=== PATIENT | male | born 1950 | race Caucasian/White ===

== ENCOUNTER → 2020-03-05 09:08 | Outpatient (BNVA) | payer MEDICARE, SELFPAY | PROVIDERS: PCP Internal Medicine; Referring Provider Internal Medicine; Visit Provider Internal Medicine Cardiovascular Disease | DX: I42.9 Cardiomyopathy, unspecified (principal); I10 Essential (primary) hypertension; I49.3 Ventricular premature depolarization; F10.21 Alcohol dependence, in remission; Z87.891 Personal history of nicotine dependence; Z79.82 Long term (current) use of aspirin; Z79.899 Other long term (current) drug therapy | CPT/HCPCS: 99212 ==

== ENCOUNTER → 2020-09-07 08:39 | Outpatient (BNVA) | payer MEDICARE, SELFPAY | PROVIDERS: PCP Internal Medicine; Visit Provider Internal Medicine Cardiovascular Disease | DX: I10 Essential (primary) hypertension (principal); I49.3 Ventricular premature depolarization | CPT/HCPCS: 99212 ==

== ENCOUNTER 2021-02-16 10:25 | Outpatient (REF) | payer MEDICARE, SELFPAY ==
[2021-02-16 10:27] LABS: MANUAL DIFF FLAG NO
[2021-02-16 10:58] LABS: Basophils Percent Auto 0.3 % (0-2); Eosinophils Absolute Auto 0.6 X10*3/uL (0.0-0.4); Eosinophils Percent Auto 6.4 % (0-4); Hematocrit 50.3 % (42-52); Imm Gran Abs Auto 0.02 X10*3/uL (0.00-0.03); Imm Gran Pct Auto 0.2 % (0.0-0.4); Lymphocytes Absolute Auto 2.1 X10*3/uL (1.2-4.9); Lymphocytes Percent Auto 23.5 % (20-40); Mean Corpuscular HGB Conc 33.8 g/dl (31.0-36.0); Mean Corpuscular Hemoglobin 32.3 pg (27.0-33.0); Mean Corpuscular Volume 95.4 fL (80-98); Mean Platelet Volume 10.8 fL (9.4-12.4); Monocytes Absolute Auto 0.7 X10*3/uL (0.1-1.2); Monocytes Percent Auto 8.2 % (2-11); Neutrophils Absolute Auto 5.4 X10*3/uL (2.0-8.3); Neutrophils Percent Auto 61.4 % (45-73); Platelet Count 242 X10*3/uL (160-400); Red Blood Count 5.27 X10*6/uL (4.60-5.80); Red Cell Distribution Width 13.2 % (11.0-16.0); White Blood Count 8.8 X10*3/uL (4.8-10.8)
[2021-02-16 11:13] LABS: Alanine Aminotransferase 17 U/L (0-40); Albumin Level 4.1 g/dL (3.5-5.0); Alkaline Phosphatase 35 U/L (39-117); Anion Gap 11 (12-20); Aspartate Amino Transferase 15 U/L (5-37); Bilirubin Total 1.2 mg/dL (0.0-1.0); Blood Urea Nitrogen 18 mg/dL (9-16); Calcium 9.2 mg/dL (8.4-10.2); Carbon Dioxide 28 mmol/L (22-29); Chloride 106 mmol/L (96-108); Cholesterol 199 mg/dL; Estimated Glomerular Filt Rate > 60; Glucose Fasting 99 mg/dL (60-99); HDL Cholesterol 55 mg/dL; LDL Cholesterol Calculated 130 mg/dl; Sodium 141 mmol/L (135-145); Total Protein 6.4 g/dL (6.5-8.0); Triglycerides 70 mg/dL
[2021-02-16 11:16] LABS: Estimated Average Glucose 105 mg/dL; Hemoglobin A1C 148.7881 umol/L; Hemoglobin A1c % 5.3 %
[2021-02-16 11:31] LABS: Appearance Urine CLEAR; Color Urine YELLOW; Glucose Urine UA NEG (NEG); Leukocyte Esterase Urine NEG (NEG); Nitrite Urine NEG (NEG); Urine Blood NEG (NEG); Urine Ketones NEG (NEG); Urine Protein NEG (NEG-TRACE)
[2021-02-16 11:36] LABS: Creatinine Urine 187.32 mg/dL; Microalbum/Creatinine Ratio Ur 10.1 ug/mg cr; PSA,Total (Free>4and<10) 2.05 ng/mL (0.00-4.00)
== END 2021-02-16 10:26 | disposition home or self-care (01) ==
LOC: HO.LNP 10:25
PROVIDERS: Visit Provider Internal Medicine
DX: Z00.00 Encounter for general adult medical examination without abnormal findings (principal); Z12.5 Encounter for screening for malignant neoplasm of prostate; R97.20 Elevated prostate specific antigen [PSA]; E78.00 Pure hypercholesterolemia, unspecified; E11.9 Type 2 diabetes mellitus without complications
CPT/HCPCS: 80053; 80061; 81003; 82043; 83036; 84153; 85025

== ENCOUNTER → 2021-03-10 08:40 | Outpatient (BNVA) | payer MEDICARE, SELFPAY | PROVIDERS: PCP Internal Medicine; Referring Provider Internal Medicine; Visit Provider Internal Medicine Cardiovascular Disease | DX: I49.3 Ventricular premature depolarization (principal); I10 Essential (primary) hypertension | CPT/HCPCS: 93005; 99212 ==

== ENCOUNTER 2022-02-18 10:38 | Outpatient (REF) | payer MEDICARE, SELFPAY ==
[2022-02-18 10:41] LABS: MANUAL DIFF FLAG NO
[2022-02-18 11:08] LABS: Basophils Absolute Auto 0.1 X10*3/uL (0.0-0.2); Basophils Percent Auto 0.6 % (0-2); Eosinophils Absolute Auto 0.4 X10*3/uL (0.0-0.4); Eosinophils Percent Auto 4.2 % (0-4); Hematocrit 50.7 % (42.0-52.0); Hemoglobin 17.1 g/dl (14.0-18.0); Imm Gran Abs Auto 0.02 X10*3/uL (0.00-0.03); Imm Gran Pct Auto 0.2 % (0.0-0.4); Lymphocytes Percent Auto 23.9 % (20-40); Mean Corpuscular HGB Conc 33.7 g/dl (31.0-36.0); Mean Corpuscular Hemoglobin 32.2 pg (27.0-33.0); Mean Corpuscular Volume 95.5 fL (80.0-98.0); Mean Platelet Volume 10.7 fL (9.4-12.4); Monocytes Absolute Auto 0.7 X10*3/uL (0.1-1.2); Monocytes Percent Auto 8.1 % (2-11); Neutrophils Absolute Auto 5.3 x10*3/uL (2.0-8.3); Platelet Count 248 X10*3/uL (160-400); Red Blood Count 5.31 X10*6/uL (4.60-5.80); Red Cell Distribution Width 12.9 % (11.0-16.0); White Blood Count 8.4 X10*3/uL (4.8-10.8)
[2022-02-18 11:12] LABS: Appearance Urine Clear; Color Urine Yellow; Glucose Urine UA Negative (Negative); Leukocyte Esterase Urine Negative (Negative); Nitrite Urine Negative (Negative); PH 5.5 (5.0-9.0); Specific Gravity - Urine 1.015 (1.005-1.025); Urine Blood Negative (Negative); Urine Ketones Negative (Negative); Urine Protein Negative (Neg-Trace)
[2022-02-18 11:17] LABS: Bacteria Urine None Seen (None Seen); Hyaline Casts Urine 0-2 /LPF (0-2); RBC Urine 0-2 /HPF (0-2); Squamous Epithelial Cell Urine 0-2 /HPF (0-2); WBC Urine 0-5 /HPF (0-5)
[2022-02-18 11:26] LABS: Estimated Average Glucose 105 mg/dL; Hemoglobin A1c % 5.3 %
[2022-02-18 11:26] LABS: Alanine Aminotransferase 16 U/L (0-40); Alkaline Phosphatase 37 U/L (39-117); Anion Gap 15 (12-20); Aspartate Amino Transferase 15 U/L (5-37); Bilirubin Total 1.1 mg/dL (0.0-1.0); Blood Urea Nitrogen 19 mg/dL (9-16); Calcium 9.2 mg/dL (8.4-10.2); Carbon Dioxide 27 mmol/L (22-29); Chloride 104 mmol/L (96-108); Cholesterol 223 mg/dL; Estimated Glomerular Filt Rate > 60; Glucose Fasting 99 mg/dL (60-99); HDL Cholesterol 59 mg/dL; LDL Cholesterol Calculated 145 mg/dl; Potassium 4.4 mmol/L (3.3-5.1); Sodium 142 mmol/L (135-145); Total Protein 6.3 g/dL (6.5-8.0); Triglycerides 97 mg/dL
[2022-02-18 11:47] LABS: PSA,Total (Free>4and<10) 1.98 ng/mL (0.00-4.00)
== END 2022-02-18 10:39 | disposition home or self-care (01) ==
LOC: HO.LNP 10:38
PROVIDERS: Visit Provider Internal Medicine
DX: Z00.00 Encounter for general adult medical examination without abnormal findings (principal); Z12.5 Encounter for screening for malignant neoplasm of prostate; E78.00 Pure hypercholesterolemia, unspecified; I10 Essential (primary) hypertension
CPT/HCPCS: 80053; 80061; 81001; 83036; 84153; 85025

== ENCOUNTER → 2022-05-11 13:07 | Outpatient (BNVA) | payer MEDICARE, SELFPAY | PROVIDERS: PCP Internal Medicine; Referring Provider Internal Medicine; Visit Provider Internal Medicine Cardiovascular Disease | DX: I10 Essential (primary) hypertension (principal); I42.9 Cardiomyopathy, unspecified | CPT/HCPCS: 93005; 99212 ==

== ENCOUNTER 2022-06-21 07:20 | Day surgery (SDC) | payer MEDICARE, SELFPAY ==
[2022-06-21 07:48] VITALS: BMI 29.4
[2022-06-21 07:50] VITALS: BP 161/71; PULSE 65; RESP 16; TEMP 36.9; O2SAT 95
--- NOTE | 2022-06-21 08:31 | HO.ANESPROP2 ---
HPI - Anesthesia Eval Consult details Narrative: obese 72 yr old male with multiple colon po,yps fir colonoscopy PMFSH Active Problems Active Problems: All Active Problems (Updated 06/20/22 @ 08:39 by Harmony Morrison RN) PVC (premature ventricular contraction) (Acute) Hypertension (Acute) Cardiomyopathy (Acute) Past Medical History Medical History (Updated 06/20/22 @ 08:39 by Harmony Morrison RN) Cardiomyopathy Hypertension PVC (premature ventricular contraction) Family History Family History Father No problems noted. Mother No problems noted. Family history of problems with anesthesia: No Surgical History Surgical History (Updated 06/21/22 @ 07:46 by Betty Tripp) H/O colonoscopy H/O tooth extraction History of Problems with Anesthesia: No Social History Social History (Updated 05/11/22 @ 13:24 by JUAN Barnhart) Alcohol intake: current Alcohol intake frequency: a few times a week Patient Tobacco Use Status: Former Tobacco user Quit Date: 1994 Tobacco use type: Cigarette Cigarettes Per Day: 5 Years Smoked: 10 Smoked in Last 30 Days: No Use of substances other than those prescribed or required for medical reasons: No Are you DNR?: No Advance Directives: No Advance Directives Information Provided: Yes Meds Allergies Allergy/AdvReac Type Severity Reaction Status Date / Time No Known Allergies Allergy Verified 06/21/22 07:46 Home Medications Medication Instructions Recorded Confirmed Last Taken Type aspirin 81 mg tablet,delayed 81 mg PO DAILY 03/05/20 06/21/22 06/14/22 History release (Adult Low Dose Aspirin) indomethacin 50 mg capsule 50 mg PO TID PRN Gout 03/05/20 06/21/22 Unknown History Exam Exam Date and Time: June 21, 2022 0831 Height,Weight and Vital Signs: Height 5 ft 10 in Weight 92.986 kg Last Vital Signs Temp 98.4 F 06/21/22 07:50 Pulse 65 06/21/22 07:50 Resp 16 06/21/22 07:50 BP 161/71 H 06/21/22 07:50 Pulse Ox 95 06/21/22 07:50 O2 Del Method 06/21/22 07:50 Airway Mallampati Class: II TM Dist: >3cm Neck ROM: Full Heart: rrr Lungs: cta Assessment and Plan Assessment Anesthesia Assessment: Anesthesia Plan Discussed and Chart Reviewed Final Anesthetic Review Family History of Problems with Anesthesia: No History of Problems with Anesthesia: No NPO: Yes ASA Class: III Final Preanesthetic Review: No Changes in Pt Med Stat, Meds/Allgs Chart Reviewed, Consent Obtained/Reviewed and Anes Risks/Benef Reviewed Patient Risk: Low Procedure Risk: Low Anesthetic Plan Anesthetic Plan: MAC: Disposition: Standard PACU
[2022-06-21] MEDS: Lactated Ringers 1,000 ML 50 ML IVCONT (08:43)
--- NOTE | 2022-06-21 08:44 | MHC.SHP ---
Pre-Procedural Eval Section A Date of Service: 06/21/22 The patient is an INPATIENT: No Changes since office visit: No Cold of Flu in the past 2 weeks, No New Medical Problems, No Changes in Medication and No Patient answered all questions The History & Physical has been completed within 30 days and I have reviewed it.: Yes Section B Chief Complaint: screening Allergies: Allergies Allergy/AdvReac Type Severity Reaction Status Date / Time No Known Allergies Allergy Verified 06/21/22 07:46 Plan I have reviewed the history and physical and performed a pertinent physical examination on my patient. No changes have occurred unless specified. Time Spent With Patient Time: Total time managing care of this patient today ____ minutes.
--- NOTE | 2022-06-21 09:35 | P.BOP_ITS ---
Brief Operative Note Date of Service: 06/21/22 Pre-op diagnosis: screening Procedure: colonoscopy Surgeon: Fransico Muse Anesthesia: MAC Was an Operations And Maintenance Technican used for this Procedure?: No Estimated blood loss (mL): 2 Pathology: other Condition: stable Disposition: PACU
[2022-06-21 09:42] VITALS: BP 126/64; PULSE 56; RESP 20; TEMP 36.8; O2SAT 96
--- NOTE | 2022-06-21 09:55 | OP_ITS ---
SURGEON: Fransico Muse MD INDICATIONS: Personal history of colon polyps. PREOPERATIVE DIAGNOSIS: POSTOPERATIVE DIAGNOSIS: PROCEDURE PERFORMED: Colonoscopy to the terminal ileum with snare polypectomy, biopsy, and cauterization of colon polyps. ESTIMATED BLOOD LOSS: COMPLICATIONS: ANESTHESIA: Monitored anesthesia care. ASSISTANTS: SPECIMENS: PROCEDURE DESCRIPTION: The procedure was performed on 06/21/2022. A history and physical were performed. The risks and benefits of the procedure were explained to the patient. Informed consent was obtained. The patient was placed in the left lateral decubitus position. A digital rectal exam was performed and was found to be normal. The Olympus pediatric video colonoscope was introduced into the rectum and advanced to the cecum without difficulty. The cecum was identified by transillumination, palpation, and identification of ileocecal valve. Examination was performed. The scope was removed. He tolerated the procedure well and was turned recovery area in stable condition. FINDINGS: The terminal ileum was examined and appeared normal. The visualized colonic mucosa was within normal limits without evidence of masses or ulcers. There were multiple colonic polyps, which were removed with a combination of snare and biopsy forceps. There were 2 polyps at 75 cm the largest measured 10 mm. These were snared. Polyps at 65 and 55 cm were also snared measuring less than 10 mm. The polyp at 45 cm was cauterized using the tip of the snare and a polyp at 40 cm measuring less than 5 mm was removed with biopsy forceps. There was moderate sigmoid diverticulosis. Retroflexed examination showed large internal hemorrhoids. There was some liquid stool remaining in the sigmoid and descending colon, which was washed and suctioned. IMPRESSION: Colon polyps. RECOMMENDATION: Follow up the biopsy results. MD JAIR Patten/AGNES / [id number]
[2022-06-21 09:57] VITALS: BP 130/60; PULSE 57; RESP 18; TEMP 37; O2SAT 96
== END 2022-06-21 10:24 | disposition home or self-care (01) ==
PROVIDERS: PCP Internal Medicine; Visit Provider Internal Medicine Gastroenterology
PROC: 0DJD8ZZ Inspection of Lower Intestinal Tract, Via Natural or Artificial Opening Endoscopic (ICD-10-PCS; CPT 45378; principal; 2022-06-21 08:40)
DX: Z12.11 Encounter for screening for malignant neoplasm of colon (principal); Z86.010 Personal history of colon polyps; Z80.0 Family history of malignant neoplasm of digestive organs; D12.4 Benign neoplasm of descending colon; D12.5 Benign neoplasm of sigmoid colon; K57.30 Diverticulosis of large intestine without perforation or abscess without bleeding; K64.8 Other hemorrhoids; I10 Essential (primary) hypertension; E78.00 Pure hypercholesterolemia, unspecified; Z79.82 Long term (current) use of aspirin; Z79.899 Other long term (current) drug therapy
CPT/HCPCS: 45385; 45380; 88305

== ENCOUNTER → 2022-09-01 07:52 | Outpatient (REF) | payer MEDICARE, SELFPAY ==
--- NOTE | 2022-09-01 07:55 | CA_ITS ---
Transthoracic Echocardiogram Patient (Last, First, Middle): Kei Sanches L Gender: Male Date of : 1950 Age: 72 Procedure Date: 09/01/2022 Procedure Type: Transthoracic Echocardiogram Location: OP Height: 177.8 cm Weight: 94.35 kg BSA: 2.12 m2 Heart Rate: bpm BP: 122 / 70 mmHg Adjunct Professor Of Law: TO Referring MD: Misael Williamson MD Receiver Dispatcher: Shiv Jama MD Symptoms: R01.1 MURMUR Study Quality: Fair ECG Rhythm: Sinus Conclusions: - 1. Low normal LV ejection fraction with grade 2 diastolic dysfunction with LVEF of 50-55% 2. Mildly dilated left atrium 3. Mild calcific aortic stenosis with mild aortic regurgitation 4. Mildly elevated right ventricular systolic pressure 5. Mildly dilated ascending aorta at 3.9 cm 6. No gross pericardial effusion Findings Left Ventricle Normal left ventricular cavity size. There is normal left ventricular wall thickness. The left ventricular systolic function is low normal. The visually estimated ejection fraction is between 50-55%. Spectral Doppler is indicative of a pseudonormal filling pattern. E/E prime ratio is >15, consistent with elevated filling pressures. Evidence suggests grade II (moderate) diastolic dysfunction. Peak GLS is -16.1%, which is mildly reduced. Right Ventricle Normal right ventricular cavity size and systolic function. Atria The left atrium is mildly dilated. Interatrial shunt cannot be excluded. The right atrium is likely dilated. Aortic Valve There is moderate calcification of the aortic valve. There is moderate thickening of the aortic valve. There is mild aortic valve stenosis. The peak aortic gradient is 33 mmHg.The mean gradient is 18 mmHg. The aortic valve area is 1.67 cm2. There is mild aortic valve regurgitation. Mitral Valve There is mild anterior and posterior mitral leaflet thickening. There is mild mitral annular calcification. There is trace mitral valve regurgitation. There is no mitral valve stenosis. Pulmonic Valve The pulmonic valve is likely normal. There is trace pulmonic valve regurgitation. Tricuspid Valve There is mild tricuspid valve regurgitation. Normal right atrial pressure. Mild pulmonary hypertension is present. Great Vessels The pulmonary artery was not well visualized. There is mild dilatation of the ascending aorta measuring 3.90 cm. Venous The inferior vena cava is normal in size and collapses greater than 50% with inspiration. Pericardium/Pleural There is no evidence of pericardial effusion. Measurements 2D Linear Measurements IVSd: 1.24 0.6-0.9/0.6-1.0 cm LVIDd: 5.16 3.9-5.3/4.2-5.9 cm LVIDd Index: 2.43 2.4-3.2/2.2-3.1 cm/m2 LVIDs: 3.61 2.0-3.6 cm LVPWd: 0.96 0.7-1.1 cm LA Diam: 4.70 2.7-3.8/3.0-4.0 cm LAIDs Index: 2.22 1.5-2.3 cm/m2 LV Mass: 271.25 67-162/88-224 g LV Mass Index: 127.95 43-95/49-115 g/m2 LVOT Diam: 2.10 3.0+(-)1.3 cm 2D Systolic Function EF 4C: 54.30 >55% EF 2C: 51.80 >55% EF BiP: 53.70 >55% Mitral Valve MV VTI: 0.41 MV Pk Sharad: 1.38 MV Mn Sharad: 0.69 MV Pk Grad: 8.00 MV Mn Grad: 2.00 MV Pk E: 0.98 MV PK A: 0.78 MV Decel Time: 243.00 E/A: 1.30 E'Lateral: 5.87 E'Medial: 6.64 E/E' Med: 14.80 E/E' Lat: 16.70 PHT: 71.00 MVA PHT: 3.10 MVA Continuity: 2.94 Decel Victoria: 3.84 Aortic Valve AoV Pk Sharad: 2.87 AoV Mn Sharad: 1.98 AoV VTI: 0.72 AoV Pk Grad: 33.00 Aov Mn Grad: 18.00 MARIO Cont.VTI: 1.67 AI Pk Sharad: 4.24 AI Victoria: 2.44 LVOT LVOT Pk Sharad: 1.34 LVOT Mn Sharad: 0.91 LVOT VTI: 0.35 LVOT Pk Grad: 7.00 LVOT Mn Grad: 4.00 LVOT Diam: 2.10 LVOT Area: 3.46 Diastolic Function MV Pk E: 0.98 MV Pk A: 0.78 E/A: 1.30 E'Medial: 6.64 E/E' Med: 14.80 E' Laterial: 5.87 E/E' Lat: 16.70 Right Ventricle TAPSE (mm): 18.90 TVS' Sharad: 10.90 Tricuspid Valve TR Pk Sharad: 3.06 TR Pk Grad: 37.00 RA Press: 3.00 RVSP: 40.00 Great Vessels Aorta Sinus of Valsalva: 3.31 2.0-3.[address] [place]: 2.73 1.7-3.4 cm Ao Asc: 3.90 2.1-3.4 cm Updated in Other Vendor System with Status of Final Shiv Jama MD electronically signed on 09/01/2022 12:17:01 PM with status of Final
== END ==
LOC: HO.CARD 07:52
PROVIDERS: Visit Provider Internal Medicine
DX: R01.1 Cardiac murmur, unspecified (principal)
CPT/HCPCS: 93306; 93356

== ENCOUNTER 2023-02-21 11:41 | Outpatient (REF) | payer MEDICARE, SELFPAY ==
[2023-02-21 11:45] LABS: MANUAL DIFF FLAG NO
[2023-02-21 12:27] LABS: Basophils Percent Auto 0.4 % (0-2); Eosinophils Absolute Auto 0.2 X10*3/uL (0.0-0.4); Eosinophils Percent Auto 3.1 % (0-4); Hematocrit 51.5 % (42.0-52.0); Hemoglobin 17.4 g/dl (14.0-18.0); Imm Gran Abs Auto 0.02 X10*3/uL (0.00-0.03); Imm Gran Pct Auto 0.3 % (0.0-0.4); Lymphocytes Absolute Auto 1.8 X10*3/uL (1.2-4.9); Lymphocytes Percent Auto 23.7 % (20-40); Mean Corpuscular HGB Conc 33.8 g/dl (31.0-36.0); Mean Corpuscular Hemoglobin 32.7 pg (27.0-33.0); Mean Corpuscular Volume 96.8 fL (80.0-98.0); Mean Platelet Volume 10.5 fL (9.4-12.4); Monocytes Absolute Auto 0.7 X10*3/uL (0.1-1.2); Monocytes Percent Auto 8.8 % (2-11); Neutrophils Absolute Auto 4.9 x10*3/uL (2.0-8.3); Neutrophils Percent Auto 63.7 % (45-73); Platelet Count 212 X10*3/uL (160-400); Red Blood Count 5.32 X10*6/uL (4.60-5.80); White Blood Count 7.6 X10*3/uL (4.8-10.8)
[2023-02-21 12:35] LABS: Appearance Urine Clear; Color Urine Yellow; Glucose Urine UA Negative (Negative); Leukocyte Esterase Urine Negative (Negative); Nitrite Urine Negative (Negative); PH 5.5 (5.0-9.0); Urine Blood Negative (Negative); Urine Ketones Negative (Negative); Urine Protein Negative (Neg-Trace)
[2023-02-21 12:41] LABS: Bacteria Urine None Seen (None Seen); Hyaline Casts Urine 0-2 /LPF (0-2); RBC Urine 0-2 /HPF (0-2); Squamous Epithelial Cell Urine 0-2 /HPF (0-2); WBC Urine 0-5 /HPF (0-5)
[2023-02-21 12:55] LABS: Alanine Aminotransferase 27 U/L (0-40); Albumin Level 4.1 g/dL (3.5-5.0); Alkaline Phosphatase 46 U/L (39-117); Anion Gap 15 (12-20); Aspartate Amino Transferase 23 U/L (5-37); Bilirubin Total 1.5 mg/dL (0.0-1.0); Blood Urea Nitrogen 19 mg/dL (9-16); Calcium 9.2 mg/dL (8.4-10.2); Carbon Dioxide 27 mmol/L (22-29); Chloride 103 mmol/L (96-108); Cholesterol 220 mg/dL (<200); Estimated Glomerular Filt Rate > 60; Glucose Fasting 105 mg/dL (60-99); HDL Cholesterol 62 mg/dL (>40); LDL Cholesterol Calculated 133 mg/dL (<100); Sodium 141 mmol/L (135-145); Total Protein 6.7 g/dL (6.5-8.0); Triglycerides 128 mg/dL (<150)
[2023-02-21 13:13] LABS: PSA,Total (Free>4and<10) 3.21 ng/mL (0.00-4.00)
== END 2023-02-21 11:42 | disposition home or self-care (01) ==
LOC: HO.LNP 11:41
PROVIDERS: Visit Provider Internal Medicine
DX: Z00.00 Encounter for general adult medical examination without abnormal findings (principal); E78.00 Pure hypercholesterolemia, unspecified; I10 Essential (primary) hypertension; Z12.5 Encounter for screening for malignant neoplasm of prostate
CPT/HCPCS: 80053; 80061; 81001; 84153; 85025

== ENCOUNTER 2023-05-15 08:34 | Outpatient (AMB) | payer MEDICARE, SELFPAY ==
[2023-05-15 09:08] VITALS: BP 140/50; PULSE 68; BMI 31.8
--- NOTE | 2023-05-15 09:08 | MHC.OFFVIS ---
Intake Vital Signs 05/15/23 09:08 Height 5 ft 10 in Weight 221 lb 12.56 oz BMI 31.8 BP 140/50 H Blood Pressure Location Lt brachial Position Sitting Pulse 68 Intake Visit Reasons: 1 year fu Intake Note: 1 yr f/up pt its feeling fine Motion Picture Printer Required: No Accompanied by: Self / Same As Patient Allergies No Known Allergies Allergy (Verified 06/21/22 07:46) Medication List - Last Reconciled 05/15/23 by Tristan Ochoa MD amlodipine 10 mg PO DAILY aspirin (Adult Low Dose Aspirin) 81 mg PO DAILY indomethacin 50 mg PO TID PRN metoprolol succinate ER 50 mg PO DAILY HPI HPI Comments History of Present Illness Details 73-year-old gentleman with no significant past medical history referred for abnormal EKG. He had a yearly physical with Dr. Williamson where EKG done showed inferior Q-waves with the premature ventricular complexes. Patient is quite active and played golf every day till the weather changed. He denied any chest discomfort, shortness of breath, sweating episodes, epigastric discomfort or upper back discomfort at any time. He has gout which is treated with as needed indomethacin. Other than that he does not take any medications. EKG showing sinus rhythm with premature ventricular complexes, inferior Q-waves with T-wave inversions. He was sent for echocardiography which showed a low-normal LVEF. Despite use of contrast, we could assess for RWMA. His Holter monitor showed [id number] PVCs in 24 hours. He was sent for stress test and was started on metoprolol. He exercised well on treadmill without any symptoms and his PVCs decreased in number at peak exercise. After being on metoprolol I repeated his Holter monitor. This is showing significantly decreased number of PVCs at this point. He continues to be asymptomatic. 05/15/23: He returns for follow-up. He is denying any symptoms including shortness of breath, chest discomfort palpitations. Blood pressure is mildly elevated. Previous blood pressure readings were normal. He is due to see his primary care physician in a week and will have repeat blood pressure check there. [facility] Medical History (Updated 06/20/22 @ 08:39 by Harmony Morrison RN) PVC (premature ventricular contraction) Hypertension Cardiomyopathy Surgical History H/O colonoscopy H/O tooth extraction Family History Father No problems noted. Mother No problems noted. Social History Alcohol intake: current Alcohol intake frequency: a few times a week Patient Tobacco Use Status: Former Tobacco user Quit Date: 1994 Tobacco use type: Cigarette Cigarettes Per Day: 5 Years Smoked: 10 Review of Systems Const Reports chills, Reports fatigue, Reports fever(s), Reports frequent falls, Reports weakness, Reports weight gain and Reports weight loss ENT Reports dizziness Card Reports chest pain, Reports leg edema, Reports lightheadedness, Reports palpitations, Reports dyspnea and Reports dyspnea on exertion Resp Reports cough, Reports dyspnea and Reports dyspnea on exertion GI Reports hematochezia Musc Reports abnormal gait, Reports muscle weakness, Reports numbness, Reports radiating pain into limb and Reports tingling Neuro Reports abnormal gait, Reports dizziness, Reports frequent falls, Reports numbness, Reports tingling and Reports weakness Endo Reports fatigue and Reports palpitations Physical Exam Vital Signs: Last Vital Signs Pulse 68 05/15/23 09:08 BP 140/50 H 05/15/23 09:08 BMI result Body Mass Index 31.8 GENERAL APPEARANCE: in no acute distress, pleasant. Overweight. NECK/THYROID: no carotid bruit, no jugular venous distention. SKIN: no suspicious lesions, warm and dry. HEART: Systolic murmur aortic with preserved 2nd heart sound, regular rate and rhythm. LUNGS: clear to auscultation bilaterally. ABDOMEN: soft, nontender. EXTREMITIES: Mild edema. PERIPHERAL PULSES: equal. NEUROLOGIC: No gross deficits, AAO X 3 Office Procedures EKG Details: Sinus rhythm, left axis deviation, inferior infarct, poor R-wave progression, QTC 442 milliseconds. [id number], Complete Assessment & Plan Assessment & Plan (1) Hypertension: Code(s): I10 - Essential (primary) hypertension (2) Cardiomyopathy: Comment: DUE TO ALCOHOL USE PER CARDIOLOGY H AND P Code(s): I42.9 - Cardiomyopathy, unspecified Plan [age] gentleman here for follow up. He is denying any symptoms on follow-up. Background of alcohol use and cardiomyopathy and PVCs. LV function improved after abstinence from alcohol. Denying symptoms on follow-up in his clinically stable. Blood pressure is mildly up and he will have it repeated when he goes for follow-up with his primary care physician. If blood pressure continues to be elevated then Toprol-XL can be changed to 50 twice a day. Follow-up with us in 1 year. Thank you for allowing me to participate in the care of your patient. Please feel free to contact me if you have any questions. Coding Level of Care Code Est Pt Level 4 (81497) Diagnoses Hypertension I10 Cardiomyopathy I42.9 CPT Codes EKG - CPT: 30771-[id number], Complete ([id number])
== END 2023-05-15 09:41 | disposition home or self-care (01) ==
PROVIDERS: PCP Internal Medicine; Visit Provider Internal Medicine Cardiovascular Disease
DX: I10 Essential (primary) hypertension (principal); I42.9 Cardiomyopathy, unspecified
CPT/HCPCS: 93010; 99214

== ENCOUNTER → 2023-05-15 08:34 | Outpatient (BNVA) | payer MEDICARE, SELFPAY | PROVIDERS: Visit Provider Internal Medicine Cardiovascular Disease | DX: I42.9 Cardiomyopathy, unspecified (principal); I10 Essential (primary) hypertension | CPT/HCPCS: 93005; 99212 ==

== ENCOUNTER 2023-06-15 10:57 | Outpatient (REF) | payer MEDICARE, SELFPAY ==
[2023-06-15 12:08] LABS: PSA,Total (Free>4and<10) 3.06 ng/mL (0.00-4.00)
== END 2023-06-15 10:58 | disposition home or self-care (01) ==
LOC: HO.LNP 10:57
PROVIDERS: Visit Provider Internal Medicine
DX: Z12.5 Encounter for screening for malignant neoplasm of prostate (principal); R97.20 Elevated prostate specific antigen [PSA]
CPT/HCPCS: 84153

== ENCOUNTER 2024-02-27 11:16 | Outpatient (REF) | payer MEDICARE, SELFPAY ==
[2024-02-27 11:25] LABS: MANUAL DIFF FLAG NO
[2024-02-27 11:31] LABS: Appearance Urine Clear; Color Urine Dark Yellow; Glucose Urine UA Negative (Negative); Leukocyte Esterase Urine Negative (Negative); Nitrite Urine Negative (Negative); Urine Blood Negative (Negative); Urine Ketones Negative (Negative); Urine Protein Negative (Neg-Trace)
[2024-02-27 11:34] LABS: Bacteria Urine None Seen (None Seen); Hyaline Casts Urine 0-2 /LPF (0-2); RBC Urine 0-2 /HPF (0-2); Squamous Epithelial Cell Urine 0-2 /HPF (0-2); WBC Urine 0-5 /HPF (0-5)
[2024-02-27 11:41] LABS: Basophils Percent Auto 0.4 % (0-2); Eosinophils Absolute Auto 0.3 X10*3/uL (0.0-0.4); Eosinophils Percent Auto 3.5 % (0-4); Hematocrit 49.5 % (42.0-52.0); Imm Gran Abs Auto 0.03 X10*3/uL (0.00-0.03); Imm Gran Pct Auto 0.4 % (0.0-0.4); Lymphocytes Absolute Auto 1.8 X10*3/uL (1.2-4.9); Lymphocytes Percent Auto 24.4 % (20-40); Mean Corpuscular HGB Conc 34.3 g/dl (31.0-36.0); Mean Corpuscular Hemoglobin 33.3 pg (27.0-33.0); Mean Corpuscular Volume 97.1 fL (80.0-98.0); Mean Platelet Volume 10.4 fL (9.4-12.4); Monocytes Absolute Auto 0.6 X10*3/uL (0.1-1.2); Monocytes Percent Auto 8.4 % (2-11); Neutrophils Absolute Auto 4.7 x10*3/uL (2.0-8.3); Neutrophils Percent Auto 62.9 % (45-73); Platelet Count 237 X10*3/uL (160-400); White Blood Count 7.5 X10*3/uL (4.8-10.8)
[2024-02-27 12:03] LABS: Alanine Aminotransferase 30 U/L (0-40); Albumin Level 4.1 g/dL (3.5-5.0); Alkaline Phosphatase 35 U/L (39-117); Anion Gap 11 (12-20); Aspartate Amino Transferase 26 U/L (5-37); Bilirubin Total 1.1 mg/dL (0.0-1.0); Blood Urea Nitrogen 15 mg/dL (9-16); Calcium 9.6 mg/dL (8.4-10.2); Carbon Dioxide 29 mmol/L (22-29); Chloride 106 mmol/L (96-108); Cholesterol 216 mg/dL (<200); Estimated Glomerular Filt Rate > 60; Glucose Fasting 110 mg/dL (60-99); HDL Cholesterol 54 mg/dL (>40); LDL Cholesterol Calculated 137 mg/dL (<100); Potassium 4.6 mmol/L (3.3-5.1); Sodium 141 mmol/L (135-145); Total Protein 6.5 g/dL (6.5-8.0); Triglycerides 125 mg/dL (<150)
[2024-02-27 12:08] LABS: PSA,Total (Free>4and<10) 2.79 ng/mL (0.00-4.00)
== END 2024-02-27 11:17 | disposition home or self-care (01) ==
LOC: HO.LNP 11:16
PROVIDERS: Visit Provider Internal Medicine
DX: Z00.00 Encounter for general adult medical examination without abnormal findings (principal); E78.00 Pure hypercholesterolemia, unspecified; I10 Essential (primary) hypertension; Z12.5 Encounter for screening for malignant neoplasm of prostate
CPT/HCPCS: 80053; 80061; 81001; 84153; 85025

== ENCOUNTER 2024-07-15 09:20 | Outpatient (AMB) | payer MEDICARE, SELFPAY ==
--- NOTE | 2024-07-15 09:43 | MHC.OFFVIS ---
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 He had a yearly physical with Dr. Williamson where EKG done showed inferior Q-waves with the premature ventricular complexes. Patient is quite active and played golf every day till the weather changed. He denied any chest discomfort, shortness of breath, sweating episodes, epigastric discomfort or upper back discomfort at any time. He has gout which is treated with as needed indomethacin. Other than that he does not take any medications. EKG showing sinus rhythm with premature ventricular complexes, inferior Q-waves with T-wave inversions. He was sent for echocardiography which showed a low-normal LVEF. Despite use of contrast, we could assess for RWMA. His Holter monitor showed 09988 PVCs in 24 hours. He was sent for stress test and was started on metoprolol. He exercised well on treadmill without any symptoms and his PVCs decreased in number at peak exercise. After being on metoprolol I repeated his Holter monitor. This is showing significantly decreased number of PVCs at this point. He continues to be asymptomatic. 05/15/23: He returns for follow-up. He is denying any symptoms including shortness of breath, chest discomfort palpitations. Blood pressure is mildly elevated. Previous blood pressure readings were normal. He is due to see his primary care physician in a week and will have repeat blood pressure check there. 07/15/2024: He is here for follow-up. Blood pressure is elevated 140/70. Recently at primary care physician's office in May blood pressure was 140/50. He has stopped drinking alcohol and drinks nonalcoholic beer. Not physically active. Denying any symptoms currently but as mentioned no physical exercise. EKGs showing inferior Q-waves as well as poor R-wave progression. He previously had stress testing few years ago which was normal. Nothing recent. [facility] Medical History (Updated 07/15/24 @ 10:11 by Tristan Ochoa MD) PVC (premature ventricular contraction) Hypertension Cardiomyopathy Surgical History H/O colonoscopy H/O tooth extraction Family History Father No problems noted. Mother No problems noted. Social History Alcohol intake: current Alcohol intake frequency: a few times a week Patient Tobacco Use Status: Former Tobacco user Tobacco use type: Cigarette Cigarettes Per Day: 5 Years Smoked: 10 Physical Exam Vital Signs: Last Vital Signs Pulse 62 07/15/24 09:45 BP 140/70 H 07/15/24 09:45 BMI result Body Mass Index 31.9 GENERAL APPEARANCE: in no acute distress, pleasant. Overweight. NECK/THYROID: no carotid bruit, no jugular venous distention. SKIN: no suspicious lesions, warm and dry. HEART: Systolic murmur aortic with preserved 2nd heart sound, regular rate and rhythm. LUNGS: clear to auscultation bilaterally. ABDOMEN: soft, nontender. EXTREMITIES: Mild edema. PERIPHERAL PULSES: equal. NEUROLOGIC: No gross deficits, AAO X 3 Office Procedures EKG Details: Sinus rhythm 62 beats per minute, leftward axis, inferior infarct, poor R-wave progression, QTC 432 milliseconds. 48383-[id number], Complete Assessment & Plan Assessment & Plan (1) Hypertension: Code(s): I10 - Essential (primary) hypertension Category: Medical (2) Cardiomyopathy: Comment: DUE TO ALCOHOL USE PER CARDIOLOGY H AND P Code(s): I42.9 - Cardiomyopathy, unspecified Category: Medical (3) Abnormal EKG: Code(s): R94.31 - Abnormal electrocardiogram [ECG] [EKG] Category: Medical Plan Pleasant 74 year gentleman who is here for follow-up. He has background history of cardiomyopathy, premature ventricular complexes in the setting of alcohol use. He has stopped drinking alcohol and drinks nonalcoholic beer. Blood pressure is elevated. Adding hydrochlorothiazide 25 mg daily. Continue metoprolol succinate and amlodipine. EKGs showing inferior Q-waves and poor R-wave progression. I have discussed with Kei, he is physically not active and we have decided to do a coronary CTA. We will check blood workup before CTA. He will see us back in 4 months. Thank you for allowing me to participate in the care of your patient. Please feel free to contact me if you have any questions. Orders: Orders CT Cardiac Coronary Angio Today I42.9 - Cardiomyopathy, unspecified, R94.31 - Abnormal electrocardiogram [ECG] [EKG] Basic Metabolic Panel Today I42.9 - Cardiomyopathy, unspecified Coding Level of Care Code Est Pt Level 4 (75921) Diagnoses Hypertension I10 Cardiomyopathy I42.9 Abnormal EKG R94.31 CPT Codes EKG - CPT: 73804-Zpybwhckkxlmlftsf, Complete ([id number])
[2024-07-15 09:45] VITALS: BP 140/70; PULSE 62; BMI 31.9
--- OUTSIDE RECORDS SUMMARY | 2024-07-15 09:57 | XMS_ITS ---
Author Organization Misael Williamson MD Address [address] [place], [place] [phone] Care Team Providers Care Assistant Professor Nurse Education Name Role Phone Misael Williamson Primary Care [...] kg/m2 03/05/2024 weight is down 2 pounds [facility] 08-31-23 Encounters Encounter Location Date Provider Diagnosis Misael Williamson MD [address] [place] [address] [address] [place], [place] [id number] 03/05/2024 Misael Williamson Pure hypercholestero lemia E78.00 [...] 6 Months, Reason: Provider Name:Misael Gibbs robinr, 09/02/2024 02:00:00 PM, [address], [address], [place], [phone], Provider Name:Misael Gibbs zarina, 03/03/2025 07:15:00 AM, [address], [address], [place], [phone], Provider Name:Misael Gibbs robinr, 03/10/2025 01:00:00 PM, [address], [address], [place], [phone], Progress Notes * ALEXANDRAKei MISHRADOB:1949 (74 yo M)Acc No.[id number]:03/05/2024 Progress Notes Patient:?Kei Sanches Provider:?Misael Williamson MD :1950???Age:74 Y???Sex:Male Scar e:03/05/2024 Address:[address] [place] [address] , [place] , [id number] Subjective: * Chief Complaints: * ???Annual visitC/o right elb ow pain x 2 weeks * HPI: ???Depression Screening:?PHQ-9?Little interest or pleasure in doing things?Not at all,?Feeling down, depressed, or hopeless?Not at all,?Trouble falling or staying asleep, or sleeping too much?Not at all,?Feeling tired or having little energy?Not at all,?Poor appetite or overeating?Not at all,?Feeling bad about yourself or that you are a failure, or have let yourself or your family down?Not at all,?Trouble concentrating on things, such as reading the newspaper or watching television?Not at all,?Moving or speaking so slowly that other people could have noticed; or the opposite, being so fidgety or restless that you have been moving around a lot more than usual?Not at all,?Thoughts that you would be better off or of hurting yourself in some way?Not at all,?Total Score?0.?Interpretation and Intervention?Depression Screening Findings?Negative,?Follow-Up for Depression?: review of PHQ-9 found negative result, no follow-up needed.?Communication Needs:?Communication Needs?Does the patient have a hearing impairment?No,?Does the patient have a vision impairment??Yes,?If yes, what is the vision impairment??Glasses,?Does the patient have a cognition impairment??No.?Fall Risk:?History?Have you had any falls with injury in the past year??No,?Have you had two or more falls in the past year??No.?SDOH Questions:?SDOH Questions?In the past year have you been worried about losing housing??No,?In the past year have you or any family members you live with been unable to get any of the following when it was really needed? Check all that apply:?None.?Symptom(s):? patient is a 74 yo male here for yearly evaluation with review of recent labs and follow up of chronic issues. Also complaining of right elbow pain for 2 weeks. * ROS:?General/Constitutional:?Patient denies?fatigue , headache.?Change in appetite?denies.?Chills?denies.?Fever?denies.?Ophthalmologic:?Blurred vision?denies.?Discharge?denies.?Pain?denies.?ENT:?Patient denies?decreased sense of smell , any loss of taste , sore throat.?Decreased hearing?denies.?Sore throat?denies.?Swollen glands?denies.?Endocrine:?Cold intolerance?denies.?Excessive thirst?denies.?Heat intolerance?denies.?Weight loss?denies.?Respiratory:?Cough?denies.?Shortness of breath at rest?denies.?Shortness of breath with exertion?denies.?Wheezing?denies.?Cardiovascular:?Chest pain at rest?denies.?Chest pain with exertion?denies.?Irregular heartbeat?denies.?Shortness of breath?denies.?Gastrointestinal:?Abdominal pain?denies.?Change in bowel habits?denies.?Diarrhea?denies.?Nausea?denies.?Rectal bleeding?denies.?Vomiting?denies .?Genitourinary:?Blood in urine?denies.?Difficulty urinating?denies.?Frequent urination?denies.?Musculoskeletal:?Patient denies?muscle aches.?Painful joints?denies.?Weakness?denies.?Peripheral Vascular:?Patient denies?red and blue toes.?Skin:?Dry skin?denies.?Itching?denies.?Denies?Mole(s),? changes in moles, new moles or any lesions of concern.?Denies?Photosensitivity.?Rash?denies.?Neurologic:?Dizziness?denies.?Fainting?denies.?Headache?denies.? * Medical History:? * Surgical History:? * Hospitalization/Major Diagno stic Procedure:? * Family History:?Father: dece ased 102 yrs, diagnosed with Cancer.?Mother: 94 yrs, diagnosed with Cancer.?2 brother(s) , 1 sister(s) . 2 daughter(s) . .? Mother- old age, Denies mental health/substance abuse family history, No pertinent family medical history, No pertinent family medical history, Denies mental health/substance abuse family history. * Social History:?Tobacco Use:?Tobacco Use/Smoking?Patient is a?former smoker,?How long has it been since you last smoked??> 10 years,?Additional Findings: Tobacco Non-User?Former smoker, currently using no form of tobacco.?Drugs/Alcohol:?Alcohol Screen?Did you have a drink containing alcohol in the past year??Yes,?How often did you have a drink containing alcohol in the past year??Monthly or less (1 point),?How many drinks did you have on a typical day when you were drinking in the past year??1 or 2 drinks (0 point),?How often did you have 6 or more drinks on one occasion in the past year??Never (0 point),?Points?1,?Interpretation?Negative.?Miscellaneous:?Caffeine: yes, , 1-2 cups per day. Children: yes. no Community involvements. Exercise: yes, walk, 45 minutes QD and golf. Housing: owning. Living with: spouse. Marital status: . Occupation: works part-time, and retired. Pets: none. no Travel outside of the [place]. * Medications:?TakingAspir-Low 81 MG Tablet Delayed Release 1 tablet [...] MG Tablet 1 tablet Orally Once a dayNot-Taking/PRNBenzonatate 200 MG Capsule 1 capsule Orally Three [...] reviewed and reconciled with the patient * Allergies:?N.K.D.A.yes[Aller gies Verified] Objective: * Vitals:?Ht: 69, Wt:222, BMI: 32.78, BP:142/74, Repeat BP:130/80 weight is down 2 pounds since 08-31-23. * ???Past Orders: ???Lab:Comprehensive [place]. P shon Fast (Order Date - 02/27/2024) (Collection Date - 02/27/2024) ? Value Reference Range ?Sodium 141 135-145 - mmo l/L ?Bilirubin Total 1.1 H 0.0- 1.0 - mg/dL ?Aspartate Amino Transferase 26 5-37 - U/L ?Alanine Aminotransferase 30 0-40 - U/L ?Total Protein 6.5 6.5-8. 0 - g/dL ?Albumin Level 4.1 3.5-5. 0 - g/dL ?Alkaline Phosphatase 35 L 39-117 - U/L ?Potassium 4.6 3.3-5.1 - mmol/L ?Chloride 106 96-108 - mm ol/L ?Carbon Dioxide 29 22-29 - mmol/L ?Anion Gap 11 L 12-20 - ?Blood Urea Nitrogen 15 9-16 - mg/dL ?Creatinine 0.86 0.5-1.4 - mg/dL ?Estimated Glomerular Filt Rate > 60 - ?Glucose Fasting 110 H 60-9 9 - mg/dL ?Calcium 9.6 8.4-10.2 - m g/dL ???Lab:Complete Blood Count Auto Diff (Order Date - 02/27/2024) (Collection Date - 02/27/2024) ? Value Reference Range ?White Blood Count 7.5 4. 8-10.8 - X10*3/uL ?Red Blood Count 5.10 4.60 -5.80 - X10*6/uL ?Hemoglobin 17.0 14.0-18.0 - g/dl ?Hematocrit 49.5 42.0-52.0 - % ?Mean Corpuscular Volume 97.1 80.0-98.0 - fL ?Mean Corpuscular Hemoglobin 33.3 H 27.0-33.0 - pg ?Mean Corpuscular HGB Conc 34.3 31.0-36.0 - g/dl ?Red Cell Distribution Width 13.0 11.0-16.0 - % ?Platelet Count 237 160-4 00 - X10*3/uL ?Mean Platelet Volume 10.4 9.4-12.4 - fL ?Neutrophils Percent Auto 62.9 45-73 - % ?Imm Gran Pct Auto 0.4 0. 0-0.4 - % ?Lymphocytes Percent Auto 24.4 20-40 - % ?Monocytes Percent Auto 8.4 2-11 - % ?Eosinophils Percent Auto 3.5 0-4 - % ?Basophils Percent Auto 0.4 0-2 - % ?NRBC Pct Auto 0.0 0.0-0. 2 - /100WBC ?Neutrophils Absolute Auto 4.7 2.0-8.3 - x10*3/uL ?Imm Gran Abs Auto 0.03 0. 00-0.03 - X10*3/uL ?Lymphocytes Absolute Auto 1.8 1.2-4.9 - X10*3/uL ?Monocytes Absolute Auto 0.6 0.1-1.2 - X10*3/uL ?Eosinophils Absolute Auto 0.3 0.0-0.4 - X10*3/uL ?Basophils Absolute Auto 0.0 0.0-0.2 - X10*3/uL ?NRBC Abs Auto 0.000 0.0-0. 012 - X10*3/uL ???Lab:UA ClnCatch+Micro w/r flx Cult (Order Date - 02/27/2024) (Collection Date - 02/27/2024) ? Value Reference Range ?Color Urine Dark Yellow - ?Appearance Urine Clear - ?PH 6.0 5.0-9.0 - ?Glucose Urine UA Negative Neg ative - mg/dL ?Urine Blood Negative Negative - ?Specific [place] - Urine 1.020 1.005-1.025 - ?Urine Protein Negative Neg-Tr wali - mg/dL ?Urine Ketones Negative Negati ve - mg/dL ?Nitrite Urine Negative Negati ve - ?Leukocyte Esterase Urine Negative Negative - ?RBC Urine 0-2 0-2 - /HPF ?WBC Urine 0-5 0-5 - /HPF ?Squamous Epithelial Cell Urine 0-2 0-2 - /HPF ?Bacteria Urine None Seen None Seen - ?Hyaline Casts Urine 0-2 0-2 - /LPF ???Lab:PSA,Total (Free>4and< 10) (Order Date - 02/27/2024) (Collection Date - 02/27/2024) ? Value Reference Range ?PSA,Total (Free>4and<10) 2.79 0.00-4.00 - ng/mL ???Lab:Lipid Panel (Order Da te - 02/27/2024) (Collection Date - 02/27/2024) ? Value Reference Range ?Triglycerides 125 <150 - mg/dL ?Cholesterol 216 H <200 - m g/dL ?LDL Cholesterol Calculated 137 H <100 - mg/dL ?HDL Cholesterol 54 >40 - mg/dL * Examination: ???General Examination: ?GENERAL APPEARANCE:?well developed, well nourished, in no acute distress.?HEAD:?normocephalic, atraumatic.?EYES:?pupils equal, round, reactive to light and accommodation, sclera non-icteric.?EARS:?normal.?ORAL CAVITY:?mucosa moist.?THROAT:?clear.?NECK/THYROID:?neck supple, full range of motion, no cervical lymphadenopathy, no bruits.?SKIN:?warm and dry, no suspicious lesions.?HEART:?regular rate and rhythm, S1, S2 normal, no murmurs.?LUNGS:?clear to auscultation bilaterally.?ABDOMEN:?soft, nontender, nondistended, bowel sounds present, normal, no organomegaly , no masses palpable.?RECTAL EXAM:?normal tone, no external hemorrhoids, no masses palpable, prostate normal, stool guaiac negative.?MALE GENITOURINARY:?circumcised, no penile lesions or discharge, testes descended bilaterally, no testicular mass.?EXTREMITIES:?no clubbing, cyanosis, or edema with tender lateral epicondyle.?NEUROLOGIC:?nonfocal, motor strength normal upper and lower extremities, sensory exam intact.? Assessment: * Assessment: 1.?Annual physical exam - Z0 0.00 (Primary)?2.?Pure hypercholesterolemia - E78.00?3.?Essential (primary) hypertension - I10?4.?Colon cancer screening - Z12.11?5.?Depression screening - Z13.31? Plan: * Treatment: 2.?Pure hypercholesterolemia ? Notes: well controlled.?? 3.?Essential (primary) hyper tension? Continue Metoprolol Succinate ER Tablet Extended Release 24 Hour, 50 MG, TAKE ONE TABLET BY MOUTH EVERY DAY, Oral;?Continue amLODIPine Besylate Tablet, 10 MG, 1 tablet, Orally, Once a day.?? Notes: doing well on meds, will continue current regiment?? 4.?Colon cancer screening?LAB: Occult Blood, Stool, Guaiac?Negative ? Value Reference Range ?Occult Blood, Stool, Guaiac Neg Notes: guaiac negative??5.?Depression screening? Notes: negative screen?? * Procedure Codes:?80116 TEST FOR BLOOD, FECES * Preventive Medicine:? ??Counseling:?Care goal follow-up plan:?Counseling for abnormal BMI provided?Yes,?Above Normal BMI Follow-up?Giving encouragement to exercise.? * Follow Up:?6 Months * * Sign off status: Completed true * Provider:?Misael Williamson MD Date:?1 Generated for Celi milton/Prem/Jaydon on:?07/15/2024 09:57 AM EDT History and Physical Notes * HPI [...] patient have a vision impairmen t?: Yes ?If yes, what is the vision impairment?: Glasses Does the patient have a cognition impair ment?: No Examination Category Sub-Category Detail Notes Category Not es General Examination GENERAL APPEARANCE: well dev eloped, well nourished, in no acute distress HEAD: normocephalic, atrau matic EYES: pupils equal, round, reactive to light and accommodation, sclera non- icteric EARS: normal THROAT: clear NECK/THYROID: neck supple, [...]
--- OUTSIDE RECORDS SUMMARY | 2024-07-15 09:58 | XMS_ITS ---
Author Organization Misael Williamson MD Address [address] [place], [place] [id number] Care Team Providers Care Field Cane Scaler Name Role Phone Misael Williamson Primary Care Provider Results Component Value Reference Range Notes Complete Blood Count Auto Di ff Reviewed date:02/27/2024 08:32:39 PM Interpretation: Performing Lab:[facility], [address] [place] [phone] Notes/Report: White Blood Count 7.5 4.8-10.8 X10*3/uL [...] NRBC Abs Auto 0.000 0.0-0.012 X10*3/uL Comprehensive [place]. Panel Fa st Reviewed date:02/27/2024 08:33:01 PM Interpretation: Performing Lab:[facility], [address] [place] [phone] Notes/Report: Sodium 141 135-145 mmol/L Potassium 4.6 3.3-5.1 mmol/L Chloride 106 96-108 mmol/L Carbon Dioxide 29 22-29 mmol/L Anion Gap 11 12-20 Blood Urea Nitrogen 15 9-16 mg/dL Creatinine 0.86 0.5-1.4 mg/dL Estimated Glomerular Filt Rate > 60 NOTE: For -Citizen Of [place] individuals, multiply the result by 1.210. Chronic [...] Panel Reviewed date:02/27/2024 05:44:13 PM Interpretation: Performing Lab:[facility], [address] [place] [phone] Notes/Report: Triglycerides 125 <150 mg/dL Desirable Triglyceride: [...] (Free>4and<10) Reviewed date:02/27/2024 05:43:31 PM Interpretation: Performing Lab:[facility], [address] [place] [phone] Notes/Report: PSA,Total (Free>4and<10) 2.79 0.00-4.00 ng/mL A [...] t Reviewed date:02/27/2024 08:33:48 PM Interpretation: Performing Lab:[facility], [address] [place] [phone] Notes/Report: Urine, Clean Catch Color Urine Dark Yellow Appearance Urine Clear PH 6.0 5.0-9.0 Glucose Urine UA Negative Negative mg/dL Urine Blood Negative Negative Specific [place] - Urine 1.020 1.005-1.025 Urine Protein Negative [...] Location Date Provider Diagnosis Misael Williamson MD [address] [place] [phone] 02/27/2024 Misael Williamson Blood tests for rout [...] Treatment Next Appt Details Provider Name:Misael srinivasan, 09/02/2024 02:00:00 PM, [address] [place] [address], [address], [phone], Provider Name:Misael srinivasan, 03/03/2025 07:15:00 AM, [address] [place] [address], [phone], Provider Name:Misael srinivasan, 03/10/2025 01:00:00 PM, [address] [place] [address], [phone], Progress Notes * Kei SHERIDANDOB:1949 (74 yo M)Acc No.[id number]:02/27/2024 Progress Note Patient:?Kei Sheridan Provider:?Misael Williamson MD :1950???Age:74 Y???Sex:Male Scar e:02/27/2024 Address:[address], [place], [id number] Subjective: * Chief Complaints: * ???Yearly fasting labs * Medical History:? * Surgical History:? * Hospitalization/Major Diagno stic Procedure:? * Medications:? Objective: Assessment: * Assessment: 1.?Blood tests for routine g eneral physical examination - Z00.00 (Primary)?2.?Pure hypercholesterolemia - E78.00?3.?Essential (primary) hypertension - I10?4.?Encounter for immunization - Z23? Plan: * Treatment: 2.?Pure hypercholesterolemia ?LAB: Complete Blood Count Auto Diff ?LAB: Comprehensive [place]. Panel Fast ?LAB: Lipid Panel ?LAB: PSA,Total (Free>4and<10) ?LAB: UA ClnCatch+Micro w/rflx Cult 3.?Essential (primary) hyper tension?LAB: Complete Blood Count Auto Diff ?LAB: Comprehensive [place]. Panel Fast ?LAB: Lipid Panel ?LAB: PSA,Total (Free>4and<10) ?LAB: UA ClnCatch+Micro w/rflx Cult * Immunizations:? Influenza High Dose : 0.5 mL (Dose No:1) (Route: Intramuscular) given by Linda Hsieh on Left Deltoid * Procedure Codes:?31801 VENIP UNCT, ROUTINE*74238 FLU VACC PRSV FREE INC [id number] ADMN FLU VAC NO FEE SCHED SAME DAY * * Sign off status: Completed true * Provider:?Misael Williamson MD Date:?1 Generated for Roberti yoan/Prem/eTransmitting on:?07/15/2024 09:57 AM EDT
--- OUTSIDE RECORDS SUMMARY | 2024-07-15 09:58 | XMS_ITS | Patient Health Record ---
Author Organization Misael Williamson MD Address [address] [place], [place] [phone] Care Team Providers Care Mortgage Loan Officer Originator Name Role Phone Misael Williamson Primary Care Provider Allergies No Known Allergies Results Component Value Reference Range Notes Complete Blood Count Auto Di ff Reviewed date:02/27/2024 08:32:39 PM Interpretation: Performing Lab:[facility], [address] [place] [phone] Notes/Report: White Blood Count 7.5 4.8-10.8 X10*3/uL [...] NRBC Abs Auto 0.000 0.0-0.012 X10*3/uL Comprehensive [place]. Panel Fa st Reviewed date:02/27/2024 08:33:01 PM Interpretation: Performing Lab:[facility], [address] [place] [phone] Notes/Report: Sodium 141 135-145 mmol/L Potassium 4.6 3.3-5.1 mmol/L Chloride 106 96-108 mmol/L Carbon Dioxide 29 22-29 mmol/L Anion Gap 11 12-20 Blood Urea Nitrogen 15 9-16 mg/dL Creatinine 0.86 0.5-1.4 mg/dL Estimated Glomerular Filt Rate > 60 NOTE: For -Stateless individuals, multiply the result by 1.210. Chronic [...] Panel Reviewed date:02/27/2024 05:44:13 PM Interpretation: Performing Lab:[facility], [address] [place] [phone] Notes/Report: Triglycerides 125 <150 mg/dL Desirable Triglyceride: [...] (Free>4and<10) Reviewed date:02/27/2024 05:43:31 PM Interpretation: Performing Lab:[facility], [address] [place] [phone] Notes/Report: PSA,Total (Free>4and<10) 2.79 0.00-4.00 ng/mL A [...] t Reviewed date:02/27/2024 08:33:48 PM Interpretation: Performing Lab:[facility], [address] [place] [phone] Notes/Report: Urine, Clean Catch Color Urine Dark Yellow Appearance Urine Clear PH 6.0 5.0-9.0 Glucose Urine UA Negative Negative mg/dL Urine Blood Negative Negative Specific [place] - Urine 1.020 1.005-1.025 Urine Protein Negative Neg-Trace mg/dL Urine Ketones Negative Negative mg/dL Nitrite Urine Negative Negative Leukocyte Esterase Urine Negative Negative RBC Urine 0-2 0-2 /HPF WBC Urine 0-5 0-5 /HPF Squamous Epithelial Cell Urine 0-2 0-2 /HPF Bacteria Urine None Seen None Seen Hyaline Casts Urine 0-2 0-2 /LPF Occult Blood, Stool, Guaiac Reviewed date:03/05/2024 02:41:32 PM Interpretation:Negative Performing Lab: Notes/Report: Negative Occult Blood, Stool, Guaiac Neg Reason For Referral No Information Medications Medication SIG (Take, Route, Frequency, Duration) [...] 4 hrs for 30 day(s) 06/02/2016 Not-Taking Benzonatate 200 MG 1 capsule Orally Thr ee times a day for 7 days 07/07/2022 Not-Takin g Triamcinolone Acetonide 0.5 % APPLY TOPICALLY TWO TIMES D AILY Externally Twice a day for 15 days Not-Taking Indomethacin 50 MG TAKE ONE CAPSULE BY MOUTH THREE TIMES A DAY WITH FOOD FOR 10 DAYS for 10 Not-Taking Immunizations Vaccine Route Administration Date Status Comme nts Fluarix Quadrivalent Unknown 02/21/2017 Administered [facility] Fluarix Quadrivalent IM Intramuscular 01/22/2018 Administe red Influenza High Dose IM Intramuscular 02/14/2019 Administer ed PPSV23 (Pnemovax) IM Intramuscular 11/25/2019 Administered Influenza High Dose Unknown 01/28/2020 Administered [facility] Covid Vaccine Unknown 07/15/2020 Administered Moderna SARS-COV-2 Moderna Unknown 08/12/2020 Administered Influenza High Dose IM Intramuscular 02/16/2021 Administer ed SARS-COV-2 Moderna Unknown 03/15/2021 Administered Influenza High Dose IM Intramuscular 02/08/2022 Administer ed Influenza High Dose IM Intramuscular 02/21/2023 Administer ed Influenza High Dose IM Intramuscular 02/27/2024 Administer ed PPSV23 (Pnemovax) Unknown 12/12/2014 Refused Patient refused at visit today. DECLINED, PNEUMO Unknown 11/05/2013 Pending Social History Tobacco Use: Social History Observation [...] Never (0 point) Points 1 Interpretation Negative Problems Problem Type SNOMED Code ICD Code Onset Dates Problem Status W/U Status Risk Notes Problem Essential hypertension (31973940) Essential (primary) hypertension (I10) Active confirmed Problem 118055997 Tubular adenoma of colon (D12.6) Active confirmed Problem 366688313 History of gout (Z87.39) Active confirmed Problem 964571280 Pure hypercholesterolemia (E78.00) Active confirmed Problem 53084005 Aortic valve insufficiency, etiology of cardiac valve disease unspecified (I35.1) Active confirmed Problem 11447672 Asymptomatic PVC s (I49.3) Active confirmed Vital Signs Blood pressure diastolic 74 mm Hg 03/05/2024 belén ght is down 2 pounds since 08-31-23 Height 69 in 03/05/2024 weight is down 2 pounds since 08-31-23 Blood pressure systolic 142 mm Hg 03/05/2024 weig ht is down 2 pounds since 08-31-23 Weight 222 lbs 03/05/2024 weight is down 2 pounds since 08-31-23 BMI 32.78 kg/m2 03/05/2024 weight is down 2 pounds since 08-31-23 Encounters Encounter Location Date Provider Diagnosis Misael Williamson MD [address] [place] [phone] 08/31/2023 Misael Williamson Essential (primary) hypertension I10 Misael Williamson MD [address] [place] [phone] 02/27/2024 Misael Williamson Blood tests for rout ine general physical examination Z00.00 ; Pure hypercholesterolemia E78.00 ; Essential (primary) hypertension I10 and Encounter for immunization Z23 Misael Williamson MD [address] [place] [address] Drive [address] [place] [phone] 03/05/2024 Misael Williamson Pure hypercholestero lemia E78.00 ; Annual physical exam Z00.00 ; Essential (primary) hypertension I10 ; Colon cancer screening Z12.11 and Depression screening Z13.31 Assessments Encounter Date Diagnosis (ICD Code) Assessment Notes Treatment Notes Treatment Clinical Notes Section Notes 08/31/2023 Essential (primary) hypertension (ICD-10 - I10) doing well on present meds, will continue current regiment 02/27/2024 Blood tests for rout ine general physical examination (ICD-10 - Z00.00) 02/27/2024 Pure hypercholesterolemia (ICD-10 - E78.00) 03/05/2024 Pure hypercholesterolemia (ICD-10 - E78.00) well controlled. 03/05/2024 Annual physical exam (ICD-10 - Z00.00) labs reviewed and discussed with patient 02/27/2024 Essential (primary) hypertension (ICD-10 - I10) 03/05/2024 Essential (primary) hypertension (ICD-10 - I10) doing well on meds, will continue current regiment 02/27/2024 Encounter for immunization (ICD-10 - Z23) 03/05/2024 Colon cancer screeni ng (ICD-10 - Z12.11) guaiac negative 03/05/2024 Depression screening (ICD-10 - Z13.31) negative screen Plan Of Treatment Pending Test Test Name Order Date Electrocardiogram (EKG) 12/22/2015 Electrocardiogram (EKG) 12/30/2016 Electrocardiogram (EKG) 02/01/2018 ECHO 08/25/2022 Next Appt Details Provider Name:Misael srinivasan, 09/02/2024 02:00:00 PM, [address] [place] [address], [address] [facility], [place], [place], [phone], Provider Name:Misael srinivasan, 03/03/2025 07:15:00 AM, [address] [place] [address], [address] [facility], [place], [place], [phone], Provider Name:Misael srinivasan, 03/10/2025 01:00:00 PM, [address] [place] [address], [address], [place], [place], [phone], Insurance Providers Payer Name Payer Address Payer Phone Subscriber Number Group Number Insured Name Patient Relationship to Insured Coverage Start Date Coverage End Date [employer]AGE [address] DEREK CLARKE [id number] Dori lamarKei Self - patient is the insured MEDICARE [employer] [address] [place] [address] [id number] Jose AlbertokirstenKei pineda Self - patient is the insured Medical (General) History Medical History History ICD Code colonoscopy 2009. due 2012; Colonoscopy 03/27/2013 due in 3 years; colonoscopy done 10/14/15 w/Dr. Muse; Colonoscopy done 04/24/[address] Muse (biopsy done): 06/21/22 colonoscopy done, awaiting path Refuses flu shot - 1-7-13
--- OUTSIDE RECORDS SUMMARY | 2024-07-15 09:58 | XMS_ITS ---
Author Organization Misael Williamson MD Address [address] [place] [phone] Care Team Providers Care Visual Associate Name Role Phone Misael Williamson Primary Care Provider Allergies No Known Allergies REASON FOR VISIT 6 month, No Covid symptoms Medications Medication SIG (Take, Route, Frequency, Duration) Notes Start Date End Date Status Ventolin HFA * 108 (90 Base) MCG/ACT 2 puffs as needed Inhalation every 4 hrs for 30 day(s) 06/02/2016 Not-Taking amLODIPine Besylate 10 MG 1 tablet Orall y Once a day Active Metoprolol Succinate ER 50 MG TAKE ONE TABLET BY MOUTH EVERY DAY Oral Active Aspir-Low 81 MG 1 tablet Orally Once a day for 30 day(s) Active Triamcinolone Acetonide 0.5 % APPLY TOPICALLY TWO TIMES D AILY Externally Twice a day for 15 days Not-Taking Indomethacin 50 MG TAKE ONE CAPSULE BY MOUTH THREE TIMES A DAY WITH FOOD FOR 10 DAYS for 10 Not-Taking Benzonatate 200 MG 1 capsule Orally Thr ee times a day for 7 days 07/07/2022 Not-Maggy finn Vital Signs Blood pressure systolic 144 mm Hg 08/31/19 24 Blood pressure diastolic 70 mm Hg 024 Height 69 in 08/31/2023 Weight 224 lbs 08/31/2023 BMI 33.08 kg/m2 08/31/2023 weight is up 9 pounds since 06-06-23 Encounters Encounter Location Date Provider Diagnosis Misael Williamson MD [address] [place] [phone] 08/31/2023 Misael Williamson Essential (primary) hypertension I10 Assessments Encounter Date Diagnosis (ICD Code) Assessment Notes Treatment Notes Treatment Clinical Notes Section Notes 08/31/2023 Essential (primary) hypertension (ICD-10 - I10) doing well on present meds, will continue current regiment Plan Of Treatment Medication Medication Name Sig Start Date Stop Date Notes amLODIPine Besylate 10 MG 1 tablet Orally Once a day Metoprolol Succinate ER 50 MG TAKE ONE T ABLET BY MOUTH EVERY DAY Oral Treatment Notes Assessment Notes Essential (primary) hypertension doing w ell on present meds, will continue current regiment Next Appt Details Provider Name:Misael srinivasan, 09/02/2024 02:00:00 PM, [address] [place] [address], Suite [facility], [place], [place], [phone], Provider Name:Misael srinivasan, 03/03/2025 07:15:00 AM, [address] [place] [address], [address], [place], [place], [phone], Provider Name:Misael srinivasan, 03/10/2025 01:00:00 PM, [address] [place] [address], Suite [facility], [place], [place], [phone], Progress Notes * Kei SHERIDANDOB:1949 (73 yo M)Acc No.[id number]:08/31/2023 Progress Notes Patient:?Kei Sheridan Provider:?Misael Williamson MD :1950???Age:73 Y???Sex:Male Scar e:08/31/2023 Address:[address] [place] [address] , [place] , [id number] Subjective: * Chief Complaints: * ???6 monthNo Covid symptoms * HPI: ???Symptom(s):? patient is a 73 yo male here for 6 month follow up visit. * ROS:?General/Constitutional:?Denies?Chills.?Denies?Fatigue.?Denies?Fever.?Denies?Headache.?ENT:?Patient denies?decreased sense of smell , any loss of taste , sore throat.?Denies?Sore throat.?Respiratory:?Denies?Cough.?Denies?Shortness of breath at rest.?Denies?Shortness of breath with exertion.?Cardiovascular:?Denies?Chest pain at rest.?Denies?Chest pain with exertion.?Denies?Dizziness.?Denies?Palpitations.?Denies?Shortness of breath.?Gastrointestinal:?Denies?Diarrhea.?Denies?Nausea.?Musculoskeletal:?Patient denies?muscle aches.?Peripheral Vascular:?Patient denies?red and blue toes.? * Medical History:? * Surgical History:? * Hospitalization/Major Diagno stic Procedure:? * Medications:?TakingAspir-Low 81 MG Tablet Delayed Release [...] 2 puffs as needed Inhalation every 4 hrsNot-Taking/PRN Benzonatate 200 MG Capsule 1 capsule Orally Three times a dayNot-Taking/PRN Triamcinolone Acetonide 0.5 % Cream APPLY TOPICALLY TWO TIMES D AILY Externally Twice a dayNot-Taking/PRN Indomethacin 50 MG Capsule TAKE ONE CAPSULE BY MOUTH THREE TIMES A DAY WITH FOOD FOR 10 DAYS Not-Taking/PRN Ventolin HFA * 108 (90 Base) MCG/ACT Aerosol Solution 2 puffs as needed Inhalation every 4 hrsDiscontinuedguaiFENesin-Codeine 100-10 MG/5ML Solution 10 ml as needed Orally every 4 hrsMedication List reviewed and reconciled with the patientDiscontinued guaiFENesin-Codeine 100-10 MG/5ML Solution 10 ml as needed Orally every 4 hrsMedication List reviewed and reconciled with the patient * Allergies:?N.K.D.A.yes[Aller gies Verified] Objective: * Vitals:?Ht: 69, Wt:224, BMI: 33.08, BP:144/70, Repeat BP:110/70 weight is up 9 pounds since 06-06-23. * Examination: ???General Examination: ?GENERAL APPEARANCE:? alert, well hydrated, in no distress .?HEAD:? normocephalic.?SKIN:? good turgor.?HEART:? no murmurs, rubs, gallops, regular rate and rhythm.?LUNGS:? no wheezes, rales, rhonchi, good air movement, good air movement, clear to auscultation bilaterally.? Assessment: * Assessment: 1.?Essential (primary) hyper tension - I10 (Primary)? Plan: * Treatment: * Procedure Codes:? * * Sign off status: Completed true * Provider:?Misael Williamson MD Date:?0 08/31/2023 Generated for Celi milton/Prem/eTkristensmitting on:?07/15/2024 09:57 AM EDT History and Physical Notes * HPI (History of Present Illness) Category Sub-Category Detail Notes Category Not es Symptom(s) patient is a 73 yo male here for 6 month follow up visit. Examination Category Sub-Category Detail Notes Category Not es General Examination GENERAL APPEARANCE: alert, w ell hydrated, in no distress HEAD: normocephalic HEART: no murmurs, rubs, ga llops, regular rate and rhythm LUNGS: no wheezes, rales, r honchi, good air movement, good air movement, clear to auscultation bilaterally SKIN: good turgor
== END 2024-07-15 10:19 | disposition home or self-care (01) ==
PROVIDERS: PCP Internal Medicine; Visit Provider Internal Medicine Cardiovascular Disease
DX: I10 Essential (primary) hypertension (principal); I42.9 Cardiomyopathy, unspecified; R94.31 Abnormal electrocardiogram [ECG] [EKG]
CPT/HCPCS: 93010; 99214

== ENCOUNTER → 2024-07-15 09:20 | Outpatient (BNVA) | payer MEDICARE, SELFPAY | PROVIDERS: PCP Internal Medicine; Visit Provider Internal Medicine Cardiovascular Disease | DX: I42.9 Cardiomyopathy, unspecified (principal); I10 Essential (primary) hypertension; R94.31 Abnormal electrocardiogram [ECG] [EKG] | CPT/HCPCS: 93005; 99212 ==

== ENCOUNTER 2024-09-10 08:22 | Outpatient (REF) | payer MEDICARE, SELFPAY ==
--- OUTSIDE RECORDS SUMMARY | 2024-09-10 08:40 | XMS_ITS ---
Author Organization Misael Williamson MD Address [address] [place], [place] [phone] Care Team Providers Care Database Engineer Name Role Phone Misael Williamson Primary Care Provider [phone] Results Component Value Reference Range Notes Complete Blood Count Auto Di ff Reviewed date:02/27/2024 08:32:39 PM Interpretation: Performing Lab:[facility] [place], [address] [place] [phone] Notes/Report: White Blood Count 7.5 4.8-10.8 X10*3/uL [...] NRBC Abs Auto 0.000 0.0-0.012 X10*3/uL Comprehensive [place]. Panel Fa st Reviewed date:02/27/2024 08:33:01 PM Interpretation: Performing Lab:[facility] [place], [address] [place] [phone] Notes/Report: Sodium 141 135-145 mmol/L Potassium 4.6 3.3-5.1 mmol/L Chloride 106 96-108 mmol/L Carbon Dioxide 29 22-29 mmol/L Anion Gap 11 12-20 Blood Urea Nitrogen 15 9-16 mg/dL Creatinine 0.86 0.5-1.4 mg/dL Estimated Glomerular Filt Rate > 60 NOTE: For -Azerbaijani individuals, multiply the result by 1.210. Chronic [...] Panel Reviewed date:02/27/2024 05:44:13 PM Interpretation: Performing Lab:[facility] [place], [address] [place] [phone] Notes/Report: Triglycerides 125 <150 mg/dL Desirable Triglyceride: [...] (Free>4and<10) Reviewed date:02/27/2024 05:43:31 PM Interpretation: Performing Lab:[facility] [place], [address] [place] [phone] Notes/Report: PSA,Total (Free>4and<10) 2.79 0.00-4.00 ng/mL A [...] t Reviewed date:02/27/2024 08:33:48 PM Interpretation: Performing Lab:[facility] [place], [address] [place] [phone] Notes/Report: Urine, Clean Catch Color Urine Dark Yellow Appearance Urine Clear PH 6.0 5.0-9.0 Glucose Urine UA Negative Negative mg/dL Urine Blood Negative Negative Specific [place] - Urine 1.020 1.005-1.025 Urine Protein Negative [...] Location Date Provider Diagnosis Misael Williamson MD [address] [place] [phone] 02/27/2024 Misael Williamson Blood tests for rout [...] Treatment Next Appt Details Provider Name:Misael srinivasan, 03/03/2025 07:15:00 AM, [address] [place] [address], [place] [address], [place], [place], [phone], Provider Name:Misael srinivasan, 03/10/2025 01:00:00 PM, [address] [place] [address], [address], [phone], Progress Notes * Kei SHERIDANDOB:1949 (74 yo M)Acc No.[id number]:02/27/2024 Progress Note Patient:?StevieeyadKei Provider:?Misael Williamson MD :1950???Age:74 Y???Sex:Male Scar e:02/27/2024 Address: [address], [place] Subjective: * Chief Complaints: * ???Yearly fasting labs * Medical History:? * Surgical History:? * Hospitalization/Major Diagno stic Procedure:? * Medications:? Objective: Assessment: * Assessment: 1.?Blood tests for routine g eneral physical examination - Z00.00 (Primary)?2.?Pure hypercholesterolemia - E78.00?3.?Essential (primary) hypertension - I10?4.?Encounter for immunization - Z23? Plan: * Treatment: 2.?Pure hypercholesterolemia ?LAB: Complete Blood Count Auto Diff ?LAB: Comprehensive [place]. Panel Fast ?LAB: Lipid Panel ?LAB: PSA,Total (Free>4and<10) ?LAB: UA ClnCatch+Micro w/rflx Cult 3.?Essential (primary) hyper tension?LAB: Complete Blood Count Auto Diff ?LAB: Comprehensive [place]. Panel Fast ?LAB: Lipid Panel ?LAB: PSA,Total (Free>4and<10) ?LAB: UA ClnCatch+Micro w/rflx Cult * Immunizations:? Influenza High Dose : 0.5 mL (Dose No:1) (Route: Intramuscular) given by Linda Hsieh on Left Deltoid * Procedure Codes:?14241 VENIP UNCT, ROUTINE*42131 FLU VACC PRSV FREE INC [id number] ADMN FLU VAC NO FEE SCHED SAME DAY * * Sign off status: Completed true * Provider:?Misael Williamson MD Date:?1 Generated for Celi milton/Prem/eTjamal on:?09/10/2024 08:40 AM EDT
--- OUTSIDE RECORDS SUMMARY | 2024-09-10 08:40 | XMS_ITS | Patient Health Record ---
Author Organization [facility] Address [address] [place] [address] Care Team Providers Care Ep Technologist Name Role Phone Misael Williamson MD Primary Care Provider Fransico Alegria Jr Unavailable [phone] Allergies No Known Allergies Reason For Referral No Information Medications Medication SIG (Take, Route, Frequency, Duration) Notes Start Date End Date Status amLODIPine Besy-Benazepril HCl 5-10 MG as directed Orally Active Aspirin Adult 81 MG 1 tablet Orally Once a day for 30 day(s) Active Metoprolol Succinate 50 MG 1 capsule Ora lly Once a day for 30 day(s) Active MiraLax (colon prep) 17 GM/SCOOP mixed with Gatorade or Crystal Light Orally begin at 5:00 p.m. the day before the procedure for 1 day 05/25/2022 Active Immunizations Vaccine Route Administration Date Status Comme nts Influenza Unknown 01/06/2019 Administered Influenza Unknown 02/23/2022 Administered Social History Alcohol Screen Question Answer Notes Did you have a drink contain ing alcohol in the past year? Yes How often did you have a dri nk containing alcohol in the past year? 4 or more times a week (4 points) How many drinks did you have on a typical day when you were drinking in the past year? 1 or 2 drinks (0 point) How often did you have 6 or more drinks on one occasion in the past year? Weekly (3 points) Points 7 Interpretation Positive Problems Problem Type SNOMED Code ICD Code Onset Dates Problem Status W/U Status Risk Notes Problem 001076651 Colon cancer screening (Z12.11) Active confirmed Problem 308734787 Personal history of colonic polyps (Z86.010) Active confirmed Problem 101776365 Encounter for other preprocedural examination (Z01.818) Active confirmed Problem 115316246807477 residential (current) use of aspirin (Z79.82) Active confirmed Problem 292383829 Diverticulosis o f large intestine without hemorrhage (K57.30) Active confirmed Problem 620981350 Long-term use of aspirin therapy (Z79.82) Active confirmed Plan Of Treatment Future Test Test Name Order Date COLONOSCOPY 01/09/2013 COLONOSCOPY 08/12/2015 COLONOSCOPY 04/03/2019 COLONOSCOPY 05/25/2022 Insurance Providers Payer Name Payer Address Payer Phone Subscriber Number Group Number Insured Name Patient Relationship to Insured Coverage Start Date Coverage End Date [facility] [address] [place], [place] [id number] MILLI SILVA Self - patient is the insured Medical (General) History Medical History History ICD Code colon polyps, last colonosco py 04/24/19, 10 mm tubular adenoma, three-year followup Hypertension Elevated cholesterol Surgical History Surgery Date(Month/Year)
--- OUTSIDE RECORDS SUMMARY | 2024-09-10 08:40 | XMS_ITS ---
Author Organization Misael Williamson MD Address [address] [place], [place] [phone] Care Team Providers Care Project Mgr Name Role Phone Misael Williamson Primary Care Provider [phone] Allergies No Known Allergies Results Component Value [...] kg/m2 03/05/2024 weight is down 2 pounds [facility] 08-31-23 Encounters Encounter Location Date Provider Diagnosis Misael Williamson MD [address] [place] [address] [address] [place], [place] [phone] 03/05/2024 Misael Williamson Pure hypercholestero lemia E78.00 [...] AM, [address], [address], [place], [phone], Provider Name:Misael Gibbs ier, 03/10/2025 01:00:00 PM, [address], [address], [place], [phone], Progress Notes * Kei SHERIDANDOB:1949 (74 yo M)Acc No.[id number]:03/05/2024 Progress Notes Patient:?Kei Sheridan Provider:?Misael Williamson MD :1950???Age:74 Y???Sex:Male Scar e:03/05/2024 Address:[address] [place] [address] , [facility] Subjective: * Chief Complaints: * ???Annual visitC/o [...] Pets: none. no Travel outside of the [place]. * Medications:?TakingAspir-Low 81 MG Tablet Delayed [...] BP:130/80 weight is down 2 pounds since 4-25-24. * ???Past Orders: ???Lab:Comprehensive [place]. P shon Fast (Order Date - 02/27/2024) [...] mg/dL ?Urine Blood Negative Negative - ?Specific [place] - Urine 1.020 1.005-1.025 - ?Urine Protein [...] negative??5.?Depression screening? Notes: negative screen?? * Procedure Codes:?23015 TEST FOR BLOOD, FECES * Preventive Medicine:? ??Counseling:?Care goal follow-up plan:?Counseling for abnormal BMI provided?Yes,?Above Normal BMI Follow-up?Giving encouragement to exercise.? * Follow Up:?6 Months * * Sign off status: Completed true * Provider:?Misael Williamson MD Date:?1 Generated for Celi milton/Prem/eTransmitting on:?09/10/2024 08:39 AM EDT History and Physical Notes * [...] had two or more falls in the year?: No Communication Needs Communication Needs Does [...]
--- OUTSIDE RECORDS SUMMARY | 2024-09-10 08:40 | XMS_ITS ---
Author Organization Misael Williamson MD Address [address] [place] [phone] Care Team Providers Care Field Auditor Name Role Phone Misael Williamson Primary Care [...] Misael Williamson MD [address] [place] [phone] 09/02/2024 Misael Williamson Abnormal stress test R94.39 Assessments Encounter Date Diagnosis (ICD Code) Assessment Notes Treatment Notes Treatment Clinical Notes Section Notes 09/02/2024 Abnormal stress test (ICD-10 - R94.39) not having any symptons to suggest cad but is going to have the studies here for follow up/ is getting cardiac ct. at [facility] 09/02/2024 Other conitnues to have a rahsh that responded to steroid. will contine here for follow up/ is getting cardiac ct. at [facility] Plan Of Treatment Medication Medication Name [...] contine Next Appt Details Provider Name:Misael srinivasan, 03/03/2025 07:15:00 AM, [address] [place] [address], [address], [place], [place], [phone], Provider Name:Misael srinivasan, 03/10/2025 01:00:00 PM, [address] [place] [address], [address], [place], [place], [phone], Progress Notes * Kei SHERIDANDOB:1949 (74 yo M)Acc No.[id number]:09/02/2024 Progress Notes Patient:?Kei SHERIDAN Provider:?Misael Williamson MD :1950???Age:74 Y???Sex:Male Scar e:09/02/2024 Address:[address] [place] [address] [id number] Subjective: * Chief Complaints: * ???1. 6 month. * HPI: ???Symptom(s):?patient is a 74 yo male here for 6? month follow up visit. * ROS:?General/Constitutional:?Denies?Chills.?Denies?Fatigue.?Denies?Fever.?Denies?Headache.?ENT:?Denies?Sore throat.?Respiratory:?Denies?Cough.?Denies?Shortness of breath at rest.?Denies?Shortness of breath with exertion.?Gastrointestinal:?Denies?Diarrhea.?Denies?Nausea.? * Medical History:?colonoscopy 2009. due 2012; Colonoscopy 03/27/2013 due in 3 years; colonoscopy done 10/14/15 w/Dr. Muse; Colonoscopy done 04/24/[address] Muse (biopsy done): 06/21/22 colonoscopy done, awaiting path, Refuses flu shot - 05-14-12. * Medications:?Taking Aspir-Lo w 81 MG Tablet Delayed Release 1 tablet Orally Once a day , Taking Metoprolol Succinate ER 50 MG Tablet Extended Release 24 Hour TAKE ONE TABLET BY MOUTH EVERY DAY Oral , Taking amLODIPine Besylate 10 MG Tablet 1 tablet Orally Once a day , Not-Taking/PRN Benzonatate 200 MG Capsule 1 capsule Orally Three times a day , Not-Taking/PRN Triamcinolone Acetonide 0.5 % Cream APPLY TOPICALLY TWO TIMES D AILY Externally Twice a day , Not-Taking/PRN Indomethacin 50 MG Capsule TAKE ONE CAPSULE BY MOUTH THREE TIMES A DAY WITH FOOD FOR 10 DAYS , Not-Taking/PRN Ventolin HFA * 108 (90 Base) MCG/ACT Aerosol Solution 2 puffs as needed Inhalation every 4 hrs , Medication List reviewed and reconciled with the patient * Allergies:?N.K.D.A. Objective: * Vitals:?Ht: 69, Wt: 222, BMI :32.78, BP:118/60, Wt-k.7. * Examination: ???General Examination: ?GENERAL APPEARANCE:?alert, well hydrated, in no distress.?HEAD:?normocephalic.?SKIN:?good turgor.?HEART:?regular rate and rhythm, no murmurs, rubs, gallops.?LUNGS:?no wheezes, rales, rhonchi, good air movement, clear to auscultation bilaterally.? Assessment: * Assessment: 1.?Abnormal stress test - R9 4.39 (Primary)??? here for follow up/? is gett ing cardiac ct. at [facility] Plan: * Treatment: 2.?Others? Refill Triamcinolone Acetonide Cream, 0.5 %, APPLY TOPICALLY TWO TIMES D AILY, Externally, Twice a day, 15 days, 30, Refills 2.?? Notes: conitnues to have a rahsh that responded to steroid. will contine?? * * The named appointment provid er may or may not be the originator of this progress note, and it is not deemed complete until electronically signed by the appointment provider. Sign off status: Pending * Provider:?Misael Williamson MD Date:?0 09/02/2024 Generated for Celi milton/Prem/Leidaitting on:?09/10/2024 08:40 AM EDT History and Physical Notes * [...]
--- OUTSIDE RECORDS SUMMARY | 2024-09-10 08:40 | XMS_ITS | Patient Health Record ---
Author Organization Misael Williamson MD Address [address] [place], [place] [phone] Care Team Providers Care At Risk Paraprofessional Name Role Phone Misael Williamson Primary Care Provider Allergies No Known Allergies Results Component Value Reference Range Notes Complete Blood Count Auto Di ff Reviewed date:02/27/2024 08:32:39 PM Interpretation: Performing Lab:[facility], [address] [place] [phone] Notes/Report: White Blood Count 7.5 4.8-10.8 X10*3/uL [...] NRBC Abs Auto 0.000 0.0-0.012 X10*3/uL Comprehensive [place]. Panel Fa st Reviewed date:02/27/2024 08:33:01 PM Interpretation: Performing Lab:[facility], [address] [place] [phone] Notes/Report: Sodium 141 135-145 mmol/L Potassium 4.6 3.3-5.1 mmol/L Chloride 106 96-108 mmol/L Carbon Dioxide 29 22-29 mmol/L Anion Gap 11 12-20 Blood Urea Nitrogen 15 9-16 mg/dL Creatinine 0.86 0.5-1.4 mg/dL Estimated Glomerular Filt Rate > 60 NOTE: For -Tajik individuals, multiply the result by 1.210. Chronic [...] Panel Reviewed date:02/27/2024 05:44:13 PM Interpretation: Performing Lab:[facility], [address] [place] [phone] Notes/Report: Triglycerides 125 <150 mg/dL Desirable Triglyceride: [...] (Free>4and<10) Reviewed date:02/27/2024 05:43:31 PM Interpretation: Performing Lab:[facility], [address] [place] [phone] Notes/Report: PSA,Total (Free>4and<10) 2.79 0.00-4.00 ng/mL A [...] t Reviewed date:02/27/2024 08:33:48 PM Interpretation: Performing Lab:[facility], [address] [place] [phone] Notes/Report: Urine, Clean Catch Color Urine Dark Yellow Appearance Urine Clear PH 6.0 5.0-9.0 Glucose Urine UA Negative Negative mg/dL Urine Blood Negative Negative Specific [place] - Urine 1.020 1.005-1.025 Urine Protein Negative [...] Twice a day for 15 days Active Aspir-Low 81 MG 1 tablet Orally [...] Fluarix Quadrivalent Unknown 02/21/2017 Administered [facility] [place] Fluarix Quadrivalent IM Intramuscular 01/22/2018 Administe red Influenza High Dose IM Intramuscular 02/14/2019 Administer ed PPSV23 (Pnemovax) IM Intramuscular 11/25/2019 Administered Influenza High Dose Unknown 01/28/2020 Administered [facility] [place] Covid Vaccine Unknown 07/15/2020 Administered Moderna SARS-COV-2 [...] Status W/U Status Risk Notes Problem Essential (prima ry) hypertension (I10) Active confirmed Problem 592513838 Tubular adenoma of colon (D12.6) Active confirmed Problem 048661521 History of gout (Z87.39) Active confirmed Problem 001193172 Pure hypercholesterolemia (E78.00) Active confirmed Problem 42238950 Aortic valve insufficiency, etiology of cardiac valve disease unspecified (I35.1) Active confirmed Problem 46089900 Asymptomatic PVC s (I49.3) Active confirmed Vital Signs Blood pressure diastolic 60 mm Hg 09/02/2024 Height 69 in 09/02/2024 Blood pressure systolic 118 mm Hg 09/02/2024 Weight 222 lbs 09/02/2024 BMI 32.78 kg/m2 09/02/2024 Encounters Encounter Location Date Provider Diagnosis Misael Williamson MD [address] [place] [address] Drive [address] [place] [phone] 09/02/2024 Misael Williamson Abnormal stress test R94.39 Misael Williamson MD [address] [place] [address] Drive [address] [place] [phone] 02/27/2024 Misael Williamson Blood tests for rout ine general physical examination Z00.00 ; Pure hypercholesterolemia E78.00 ; Essential (primary) hypertension I10 and Encounter for immunization Z23 Misael Williamson MD [address] [place] [address] Drive [address] [place] [phone] 03/05/2024 Misael Williamson Pure hypercholestero lemia E78.00 [...] follow up/ is getting cardiac ct. at [facility] 02/27/[address] ine general [...] Depression screening (ICD-10 - Z13.31) negative screen 09/02/2024 Other conitnues to have a rahsh that responded to steroid. will contine here for follow up/ is getting cardiac ct. at [facility] Plan Of Treatment Pending Test Test Name Order Date Electrocardiogram (EKG) 12/22/2015 Electrocardiogram (EKG) 12/30/2016 Electrocardiogram (EKG) 02/01/2018 ECHO 08/25/2022 Next Appt Details Provider Name:Misael srinivasan, 03/03/2025 07:15:00 AM, [address] [place] [address], [place] [address], [place], [place], [phone], Provider Name:Misael srinivasan, 03/10/2025 01:00:00 PM, [address] [place] [address], Suite [facility], [place], [place], [phone], Insurance Providers Payer Name Payer Address Payer Phone Subscriber Number Group Number Insured Name Patient Relationship to Insured Coverage Start Date Coverage End Date [employer] [address] DEREK CLARKE [id number] Kei Bah Self - patient is the insured [employer] [address] [place] [address] [id number] Kei Bah Self - patient is the insured Medical (General) History Medical History History ICD Code colonoscopy 2009. due 2012; Colonoscopy 03/27/2013 due in 3 years; colonoscopy done 10/14/15 w/Dr. Muse; Colonoscopy done 04/24/[address] Muse (biopsy done): 06/21/22 colonoscopy done, awaiting path Refuses flu shot - 1-7-13
[2024-09-10 09:55] LABS: Anion Gap 12 (12-20); Blood Urea Nitrogen 15 mg/dL (9-16); Calcium 9.2 mg/dL (8.4-10.2); Carbon Dioxide 27 mmol/L (22-29); Chloride 106 mmol/L (96-108); Estimated Glomerular Filt Rate > 60; Glucose Random 99 mg/dL (60-115); Potassium 4.2 mmol/L (3.3-5.1); Sodium 141 mmol/L (135-145)
== END 2024-09-10 08:23 | disposition home or self-care (01) ==
LOC: HO.LAB 08:22
PROVIDERS: PCP Internal Medicine; Visit Provider Internal Medicine Cardiovascular Disease
DX: I42.9 Cardiomyopathy, unspecified (principal)
CPT/HCPCS: 36415; 80048

== ENCOUNTER 2024-10-16 08:12 | Outpatient (REF) | payer MEDICARE, SELFPAY ==
--- OUTSIDE RECORDS SUMMARY | 2024-10-16 08:20 | XMS_ITS ---
Author Organization Misael Williamson MD Address [address] [place], [place] [phone] Care Team Providers Care Grounds Supervisor Name Role Phone Misael Williamson Primary Care [...] kg/m2 03/05/2024 weight is down 2 pounds [facility] 08-31-23 Encounters Encounter Location Date Provider Diagnosis Misael Williamson MD [address] [place] [address] [address] [place], [place] [phone] 03/05/2024 Misael Williamson Pure hypercholestero lemia E78.00 [...] AM, [address], [address], [place], [phone], Provider Name:Misael Gibbs ier, 03/10/2025 01:00:00 PM, [address], [address], [place], [phone], Progress Notes * Kei SHERIDANDOB:1949 (74 yo M)Acc No.[id number]:03/05/2024 Progress Notes Patient:?Kei Sheridan Provider:?Misael Williamson MD :1950???Age:74 Y???Sex:Male Scar e:03/05/2024 Address:[address] [place] [address] , [facility] Subjective: * Chief Complaints: * ???Annual visitC/o [...] Pets: none. no Travel outside of the [place]. * Medications:?TakingAspir-Low 81 MG Tablet Delayed [...] pounds since 4-25-24. * ???Past Orders: ???Lab:Comprehensive [place]. P shon Fast (Order Date - 02/27/2024) [...] mg/dL ?Urine Blood Negative Negative - ?Specific [place] - Urine 1.020 1.005-1.025 - ?Urine Protein [...] negative??5.?Depression screening? Notes: negative screen?? * Procedure Codes:?95974 TEST FOR BLOOD, FECES * Preventive Medicine:? ??Counseling:?Care goal follow-up plan:?Counseling for abnormal BMI provided?Yes,?Above Normal BMI Follow-up?Giving encouragement to exercise.? * Follow Up:?6 Months * * Sign off status: Completed true * Provider:?Misael Williamson MD Date:?1 Generated for Celi milton/Prem/Ligiaransmitting on:?10/16/2024 08:19 AM EDT History and Physical Notes * [...]
[2024-10-16 09:19] LABS: INTERNATIONAL NORM RATIO 0.9 (0.9-1.1); Prothrombin Time 10.4 SEC (10.9-12.4)
[2024-10-16 09:22] LABS: Hematocrit 48.1 % (42.0-52.0); Hemoglobin 16.5 g/dl (14.0-18.0); Mean Corpuscular HGB Conc 34.3 g/dl (31.0-36.0); Mean Corpuscular Hemoglobin 31.6 pg (27.0-33.0); Mean Corpuscular Volume 92.1 fL (80.0-98.0); Mean Platelet Volume 10.3 fL (9.4-12.4); Platelet Count 244 X10*3/uL (160-400); Red Blood Count 5.22 X10*6/uL (4.60-5.80); Red Cell Distribution Width 12.3 % (11.0-16.0); White Blood Count 9.3 X10*3/uL (4.8-10.8)
[2024-10-16 09:51] LABS: Anion Gap 10 (12-20); Blood Urea Nitrogen 16 mg/dL (9-16); Calcium 9.2 mg/dL (8.4-10.2); Carbon Dioxide 29 mmol/L (22-29); Chloride 106 mmol/L (96-108); Estimated Glomerular Filt Rate > 60; Glucose Random 104 mg/dL (60-115); Sodium 140 mmol/L (135-145)
== END 2024-10-16 08:13 | disposition home or self-care (01) ==
LOC: HO.LAB 08:12
PROVIDERS: PCP Internal Medicine; Visit Provider Internal Medicine Cardiovascular Disease
DX: I42.9 Cardiomyopathy, unspecified (principal)
CPT/HCPCS: 36415; 80048; 85027; 85610

== ENCOUNTER → 2024-10-31 23:59 | Outpatient (BNV) | payer MEDICARE, SELFPAY | PROVIDERS: PCP Internal Medicine; Visit Provider Internal Medicine Cardiovascular Disease | DX: R93.1 Abnormal findings on diagnostic imaging of heart and coronary circulation (principal) | CPT/HCPCS: 93458; 99152 ==

== ENCOUNTER 2024-11-12 14:21 | Outpatient (AMB) | payer MEDICARE, SELFPAY ==
--- OUTSIDE RECORDS SUMMARY | 2024-03-05 09:00 | XMS_ITS ---
Author Organization Misael Williamson MD Address [address] [place], [place] [id number] Care Team Providers Care Drama Professor Name Role Phone Misael Williamson Primary Care Provider [phone] Allergies No Known Allergies Results Component Value [...] kg/m2 03/05/2024 weight is down 2 pounds [facility] 08-31-23 Encounters Encounter Location Date Provider Diagnosis Misael Williamson MD [address] [place] [address] [address] [place], [place] [id number] 03/05/2024 Misael Williamson Pure hypercholestero lemia E78.00 [...] Up: 6 Months, Reason: Provider Name:Misael Gibbs ier, 03/03/2025 07:15:00 AM, [address], [address], [place], [id number], Provider Name:Misael Gibbs ier, 03/10/2025 01:00:00 PM, [address], [address], [place], [id number], Progress Notes * Kei SHERIDANDOB:1949 (74 yo M)Acc No.[id number]:03/05/2024 Progress Notes Patient: Kei Paredes Provider: Christopher Williamson MD :1950 A ge:74 Y S ex:Male Date:03/05/2024 Address:[address] [place] [address] , [facility] Subjective: * Chief Complaints: * A nnual [...] 08-31-23. * P ast Orders: L ab:Comprehensive [place]. Panel Fast (Order Date - 02/27/2024) (Collection [...] mg/dL Urine Blood Negative Negative - Specific [place] - Urine 1.020 1.005-1.025 - Urine Protein [...] Notes: negative screen?? * Procedure Codes: 8 2270 TEST FOR BLOOD, FECES * Preventive Medicine: Counseling: C are goal follow-up plan: Christopher monteseling for abnormal BMI provided?Yes, Anisa cueto Normal BMI Follow-up Christopher vazquez encouragement to exercise. * Follow Up: 6 Months * * Sign off status: Completed true * Provider: Christopher Williamson MD Date: 1 Generated for Celi milton/Prem/Jaydon on: 0 11/12/2024 03:14 PM EDT History and Physical Notes * HPI (History [...] Total Score: 0 Interpretation and Intervention Depression Normae cammie Findings: Negative Follow-Up for Depression: : review [...]
[2024-11-12 14:38] VITALS: BP 128/72; PULSE 63; BMI 31.0
--- NOTE | 2024-11-12 14:38 | MHC.OFFVIS ---
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 Recently patient had abnormal EKGs with inferior Q-waves and R-wave progression for which patient underwent a coronary CTA that showed significant blockages and therefore underwent a cardiac catheterization with Dr. Ochoa at [facility]. Today, patient reports feeling well overall and continues to deny any cardiac symptoms of exertional chest pain, shortness of breath, palpitations, dizziness, orthopnea, PND, leg edema, presyncope, or syncope. Patient states he is compliant with all his medications. Patient states that he has not very active and therefore had to tell if patient gets any symptoms at home. [facility] Medical History (Updated 11/12/24 @ 17:34 by Santosh Martinez NP) PVC (premature ventricular contraction) Hypertension Cardiomyopathy Surgical History H/O colonoscopy H/O tooth extraction Family History Father No problems noted. Mother No problems noted. Social History Alcohol intake: current Alcohol intake frequency: a few times a week Patient Tobacco Use Status: Former Tobacco user Tobacco use type: Cigarette Cigarettes Per Day: 5 Years Smoked: 10 Review of Systems ENT Reports dizziness Card Denies chest pain, Denies chest pain at rest, Denies chest pain with activity, Denies rapid heart rate, Denies pedal edema, Denies edema, Denies leg edema, Denies lightheadedness, Denies palpitations, Denies dyspnea, Denies dyspnea on exertion and Denies orthopnea Resp Denies cough, Denies dyspnea and Denies dyspnea on exertion GI Denies hematochezia and Denies change in stool character Musc Denies abnormal gait, Reports limited range of motion, Reports muscle cramps, Denies muscle weakness, Denies numbness, Denies radiating pain into limb, Denies stiffness and Denies tingling Neuro Denies abnormal gait, Reports dizziness, Denies numbness and Denies tingling Endo Denies palpitations Physical Exam Vital Signs: Last Vital Signs Pulse 63 11/12/24 14:38 BP 128/72 11/12/24 14:38 BMI result Body Mass Index 31.0 Const General: cooperative, healthy appearing, comfortable and no acute distress Orientation/consciousness: patient oriented x3 HEENT Head: Yes normal to inspection Neck Neck: Yes normal visual inspection, Yes trachea midline and Yes supple Chest Chest palpation & inspection: normal inspection of the chest Resp Effort & Inspection: normal respiratory effort Auscultation: clear to auscultation bilaterally, no crackles, no rales, no rhonchi and no wheezes Cardio Jugular venous distension: no JVD Palpation: normal PMI Rate: regular rate Rhythm: regular rhythm Heart sounds: S1 normal heart sound present, S2 normal heart sound present, no click, no gallops, Murmur heart sound present systolic at the right sternal border and no rubs Peripheral pulses: Peripheral pulses 2+ throughout GI Inspection: Yes normal to inspection Palpation (GI): Soft to palpation Auscultation: normal bowel sounds Skin General skin exam: no rashes or lesions noted Neuro General: patient oriented x3 Extrem General: Yes normal to inspection, No no pedal edema and No calf tenderness Psych Appearance: grossly normal Mental Status: mental status grossly normal Speech and movement: Normal speech and movement present Assessment & Plan Assessment & Plan (1) CAD (coronary artery disease): Code(s): I25.10 - Atherosclerotic heart disease of [place] coronary artery without angina pectoris Category: Medical Plan: 09/19/2024- patient underwent coronary CTA that showed severe stenosis in the RCA, mild stenosis in the LAD, and mild stenosis in the LCX. 10/31/2024-patient underwent cardiac catheterization with Dr. Ochoa at [facility] that showed severe RCA stenosis involving PDA PLV bifurcation. Given his lack of symptoms, it was decided to treat patient medically. Patient continues to have no cardiac symptoms, however patient is not very active. He states that he golfs now and then otherwise does not exercise much. Continue lifelong aspirin therapy. No reported signs of bleeding. Most recent LDL at 137. Has had history of elevated LDL levels in the 130s to 150s. We will start patient on high-dose statin therapy with Zetia. Repeat lipid profile in 3 months with liver function. In case of still elevated we will increase to 80 mg daily with a goal of LDL less than 70. Patient is understanding of this plan. (2) Status post cardiac catheterization: Code(s): Z98.890 - Other specified postprocedural states Category: Surgical Plan: Right wrist catheterization site is well healed. As above. (3) Cardiomyopathy: Comment: DUE TO ALCOHOL USE PER CARDIOLOGY H AND P Code(s): I42.9 - Cardiomyopathy, unspecified Category: Medical Plan: 09/01/[id number] LV EF between 50-55% with grade 2 diastolic dysfunction, mildly dilated left atrium, mild aortic stenosis, aortic regurgitation, mildly elevated right ventricular systolic pressure, and mildly dilated ascending aorta 3.9 cm. Clinically stable and euvolemic. Discussed in detail signs and symptoms of heart failures to watch for. Advised low-salt diet, med compliance, and daily weight monitoring. (4) Hyperlipidemia: Code(s): E78.5 - Hyperlipidemia, unspecified Category: Medical Plan: As above. (5) Hypertension: Code(s): I10 - Essential (primary) hypertension Category: Medical Plan: Blood pressure is well-controlled. Continue amlodipine and metoprolol therapy. Advised monitoring blood pressures at home with a goal less than 130/80. Advised heart healthy diet, med compliance, and aggressive management of vascular risk factors. Follow-up in 4 months. In the interim, patient will call the office with any concerns or change in symptoms. Advised seeking ER care in case of exertional chest pain not resolved with rest. This note was generated using voice recognition software. While every effort has been made to ensure accuracy and proper special education professor, there may be occasional errors that could affect the content or meaning of the described symptoms. Orders: Orders Lipid Panel 3 Months I25.10 - Atherosclerotic heart disease of [place] coronary artery without angina pectoris Liver Panel 3 Months I25.10 - Atherosclerotic heart disease of [place] coronary artery without angina pectoris Medications: New atorvastatin (Lipitor) 40 mg PO DAILY 90 tabs 3RF ezetimibe (Zetia) 10 mg PO DAILY 90 tabs 3RF Coding Level of Care Code Est Pt Level 4 (23695) Complex EM visit Add On G2211 Diagnoses CAD (coronary artery disease) I25.10 Status post cardiac catheterization Z98.890 Cardiomyopathy I42.9 Hyperlipidemia E78.5 Hypertension I10 Time Spent (min) 32 Comment Time spent in reviewing the chart, test results, assessment, counseling and documentation.
--- OUTSIDE RECORDS SUMMARY | 2024-11-12 15:14 | XMS_ITS | Patient Health Record ---
Author Organization [facility] Address [address] [place] [address] Care Team Providers Care Superintendent Service Name Role Phone Misael Williamson MD Primary Care Provider Fransico Alegria Jr Unavailable [phone] Allergies No Known Allergies Reason For Referral [...] Problem Status W/U Status Risk Notes Problem 387615825 Colon cancer screening (Z12.11) Active confirmed Problem 248700191 Personal history of colonic polyps (Z86.010) Active confirmed Problem 790038351 Encounter for other preprocedural examination (Z01.818) Active confirmed Problem 550455444885089 care home (current) use of aspirin (Z79.82) Active confirmed Problem 852013902 Diverticulosis o f large intestine without hemorrhage (K57.30) Active confirmed Problem 815931968 Long-term use of aspirin therapy (Z79.82) Active confirmed Plan Of Treatment Future Test Test Name Order Date COLONOSCOPY 01/09/2013 COLONOSCOPY 08/12/2015 COLONOSCOPY 04/03/2019 COLONOSCOPY 05/25/2022 Insurance Providers Payer Name Payer Address Payer Phone Subscriber Number Group Number Insured Name Patient Relationship to Insured Coverage Start Date Coverage End Date [facility] [address] [place], [place] [id number] MILLI SILVA Self - patient is the insured Medical (General) History Medical History History ICD Code colon polyps, last colonosco py 04/24/19, 10 mm tubular adenoma, three-year followup Hypertension Elevated cholesterol Surgical History Surgery Date(Month/Year)
== END 2024-11-12 15:37 | disposition home or self-care (01) ==
LOC: HO.HCS 14:22
PROVIDERS: PCP Internal Medicine
DX: I25.10 Atherosclerotic heart disease of native coronary artery without angina pectoris (principal); Z98.890 Other specified postprocedural states; I42.9 Cardiomyopathy, unspecified; E78.5 Hyperlipidemia, unspecified; I10 Essential (primary) hypertension
CPT/HCPCS: 99214; G2211

== ENCOUNTER → 2024-11-12 14:21 | Outpatient (BNVA) | payer MEDICARE, SELFPAY | PROVIDERS: PCP Internal Medicine | DX: I25.10 Atherosclerotic heart disease of native coronary artery without angina pectoris (principal); I42.9 Cardiomyopathy, unspecified; I10 Essential (primary) hypertension; E78.5 Hyperlipidemia, unspecified; Z98.890 Other specified postprocedural states | CPT/HCPCS: 99212 ==

== ENCOUNTER 2025-03-03 10:26 | Outpatient (REF) | payer MEDICARE, SELFPAY ==
--- OUTSIDE RECORDS SUMMARY | 2024-02-27 03:30 | XMS_ITS ---
Author Organization Misael Williamson MD Address [address] [place], [place] [id number] Care Team Providers Care Senior Software Engineer Name Role Phone Misael Williamson Primary Care Provider [phone] Results Component Value Reference Range Notes Complete Blood Count Auto Di ff Reviewed date:02/27/2024 08:32:39 PM Interpretation: Performing Lab:[facility], [address] [place] [id number] Notes/Report: White Blood Count 7.5 4.8-10.8 X10*3/uL [...] NRBC Abs Auto 0.000 0.0-0.012 X10*3/uL Comprehensive Leander. Panel Fa st Reviewed date:02/27/2024 08:33:01 PM Interpretation: Performing Lab:[facility], [address] [place] [phone] Notes/Report: Sodium 141 135-145 mmol/L Potassium 4.6 3.3-5.1 mmol/L Chloride 106 96-108 mmol/L Carbon Dioxide 29 22-29 mmol/L Anion Gap 11 12-20 Blood Urea Nitrogen 15 9-16 mg/dL Creatinine 0.86 0.5-1.4 mg/dL Estimated Glomerular Filt Rate > 60 NOTE: For -Martiniquais individuals, multiply the result by 1.210. Chronic [...] Panel Reviewed date:02/27/2024 05:44:13 PM Interpretation: Performing Lab:[facility], [address] [place] [phone] Notes/Report: Triglycerides 125 <150 mg/dL Desirable Triglyceride: [...] (Free>4and<10) Reviewed date:02/27/2024 05:43:31 PM Interpretation: Performing Lab:[facility], [address] [place] [phone] Notes/Report: PSA,Total (Free>4and<10) 2.79 0.00-4.00 ng/mL A [...] t Reviewed date:02/27/2024 08:33:48 PM Interpretation: Performing Lab:[facility], [address] [place] [phone] Notes/Report: Urine, Clean Catch Color Urine Dark Yellow Appearance Urine Clear PH 6.0 5.0-9.0 Glucose Urine UA Negative Negative mg/dL Urine Blood Negative Negative Specific [place] - Urine 1.020 1.005-1.025 Urine Protein Negative [...] Location Date Provider Diagnosis Misael Williamson MD [address] [place], [place] [id number] 02/27/2024 Misael Williamson Blood tests for rout [...] Of Treatment Next Appt Details Provider Name:Misael Gibbs ier, 03/10/2025 01:00:00 PM, [address], [address], [place], [place], [id number], Progress Notes * KATTYIAM KeiDOB:1949 (74 yo M)Acc No.[id number]:02/27/2024 Progress Note Patient: Kei Paredes Provider: Christopher Williamson MD :1950 A ge:74 Y S ex:Male Date:02/27/2024 Address:[address], [facility], [id number] Subjective: * Chief Complaints: * Y early [...] Blood Count Auto Diff L AB: Comprehensive Leander. Panel Fast L AB: Lipid Panel L AB: PSA,Total (Free>4and<10) L AB: UA ClnCatch+Micro w/rflx Cult 3. E ssential (primary) hypertension L AB: Complete Blood Count Auto Diff L AB: Comprehensive [place]. Panel Fast L AB: Lipid Panel L AB: PSA,Total (Free>4and<10) L AB: UA ClnCatch+Micro w/rflx Cult * Immunizations: Influenza High Dose : 0.5 mL (Dose No:1) (Route: Intramuscular) given by Linda Hsieh on Left Deltoid * Procedure Codes: 3 6415 VENIPUNCT, ROUTINE*59909 FLU VACC PRSV FREE INC [id number] ADMN FLU VAC NO FEE SCHED SAME DAY * * Sign off status: Completed true * Provider: Christopher Williamson MD Date: Generated for Celi milton/Prem/eTkristensmitting on: 12:36 PM EDT
--- OUTSIDE RECORDS SUMMARY | 2024-03-05 09:00 | XMS_ITS ---
Author Organization Misael Williamson MD Address [address] [place], [place] [id number] Care Team Providers Care Mounter Saxophones Name Role Phone Misael Williamson Primary Care Provider [phone] Allergies No Known Allergies Results Component Value [...] kg/m2 03/05/2024 weight is down 2 pounds [facility] 08-31-23 Encounters Encounter Location Date Provider Diagnosis Misael Williamson MD [address] [place] [address] [address] [place], [place] [phone] 03/05/2024 Misael Williamson Pure hypercholestero lemia E78.00 [...] 6 Months, Reason: Provider Name:Misael Gibbs ier, 03/10/2025 01:00:00 PM, [address], [address], [place], [phone], Progress Notes * Kei SHERIDANDOB:1949 (74 yo M)Acc No.[id number]:03/05/2024 Progress Notes Patient: Kei Paredes Provider: Christopher Williamson MD :1950 A ge:74 Y S ex:Male Date:03/05/2024 Address:[address] [place] [address] , [facility], [facility] Subjective: * Chief Complaints: * A nnual [...] Pets: none. no Travel outside of the [place]. * Medications: T akingAspir-Low 81 MG [...] 08-31-23. * P ast Orders: L ab:Comprehensive [place]. Panel Fast (Order Date - 02/27/2024) (Collection [...] mg/dL Urine Blood Negative Negative - Specific [place] - Urine 1.020 1.005-1.025 - Urine Protein [...] plan: C ounseling for abnormal BMI provided?Yes, A nory Normal BMI Follow-up Christopher vazquez encouragement to exercise. * Follow Up: 6 Months * * Sign off status: Completed true * Provider: Christopher Williamson MD Date: Generated for Celi milton/Prem/Ummsmitting on: 12:36 PM EDT History and Physical Notes * [...]
--- OUTSIDE RECORDS SUMMARY | 2024-09-02 10:00 | XMS_ITS ---
Author Organization Misael Williamson MD Address [address] [place] [phone] Care Team Providers Care Grocery Team Member Name Role Phone Misael Williamson Primary Care [...] Misael Williamson MD [address] [place] [phone] 09/02/2024 Misael Williamson Abnormal stress test R94.39 Assessments Encounter Date Diagnosis (ICD Code) Assessment Notes Treatment Notes Treatment Clinical Notes Section Notes 09/02/2024 Abnormal stress test (ICD-10 - R94.39) not having any symptons to suggest cad but is going to have the studies here for follow up/ is getting cardiac ct. at [facility] 09/02/2024 Other conitnues to have a rahsh that responded to steroid. will contine here for follow up/ is getting cardiac ct. at [facility] Plan Of Treatment Medication Medication Name [...] will contine Next Appt Details Provider Name:Misael Gibbs ier, 03/10/2025 01:00:00 PM, [address] [place] [address], [address] [place] [address], [phone], Progress Notes * Kei SHERIDANDOB:1949 (74 yo M)Acc No.[id number]:09/02/2024 Progress Notes Patient: Kei KAYE Provider: Christopher Williamson MD :1950 A ge:74 Y S ex:Male Date:09/02/2024 Address:[address] [place] [address] [facility] Subjective: * Chief Complaints: * 6 month * HPI: S ymptom(s): patient is a 74 yo male here for 6 month follow up visit. * ROS: G eneral/Constitutional: Denies C hills. D enies F atigue. D enies [...] follow up/ is getting cardiac ct. at [facility] Plan: * Treatment: 2. O thers Refill Triamcinolone Acetonide Cream, 0.5 %, APPLY TOPICALLY TWO TIMES D AILY, Externally, Twice a day, 15 days, 30, Refills 2. Notes: conitnues to have a rahsh that responded to steroid. will contine * Procedure Codes: * * Sign off status: Completed true * Provider: Christopher Williamson MD Date: 0 09/02/2024 Generated for Celi milton/Prem/eTransmitting on: 1 12:37 PM EDT History and Physical Notes * [...]
--- OUTSIDE RECORDS SUMMARY | 2024-11-25 04:44 | XMS_ITS ---
Author Organization Misael Williamson MD Address [address] [place] [phone] Care Team Providers Care Facilities Mechanical Design Engineer Name Role Phone Misael Williamson Primary Care Provider [phone] Medications Medication SIG (Take, Route, Fr equency, Duration) Notes Start Date End Date Status Indomethacin 50 MG TAKE ONE CAPSULE BY MOUTH THREE TIMES A DAY WITH FOOD FOR 10 DAYS for 10 Active Encounters Encounter Location Date Provider Diagnosis Misael Williamson MD [address] [place] [address] [address] [place], [place] [phone] 11/25/2024 Misael Williamson Plan Of Treatment Medication Medication Name Sig Start Date Stop Date Notes Indomethacin 50 MG TAKE ONE CAPSULE BY MOUTH THREE TIMES A DAY WITH FOOD FOR 10 DAYS for 10 Next Appt Details Provider Name:Misael Gibbs ier, 03/10/2025 01:00:00 PM, [address] [place] [address], Suite [facility], [place], [place], [phone], Progress Notes * Kei SHERIDANDOB:1949 (74 yo M)Acc No.[id number]:11/25/2024 Patient: Alfonso JERARDO Kei :1950 A ge:74 Y S ex:Male Address:[address] [address] * Refills Refill Indomethacin Capsule, 50 MG, 30 Capsule, TAKE ONE CAPSULE BY MOUTH THREE TIMES A DAY WITH FOOD FOR 10 DAYS, 10, Refills=4 * true * Date: Generated for Printi ng/Faxing/eTransmitting on: 1 12:37 PM EDT
--- OUTSIDE RECORDS SUMMARY | 2025-01-24 06:30 | XMS_ITS ---
Author Organization Misael Williamson MD Address [address] [place] [phone] Care Team Providers Care Food Processing Plant Manager Name Role Phone Misael Williamson Primary Care Provider REASON FOR VISIT HDF Immunizations Vaccine Route Administration Date Status Comme nts Influenza High Dose IM Intramuscular 01/24/2025 Administer ed Encounters Encounter Location Date Provider Diagnosis Misael Williamson MD [address] [place] [phone] 01/24/2025 Misael Williamson Encounter for administration of vaccine Z23 Assessments Encounter Date Diagnosis (ICD Code) Assessment Notes Treatment Notes Treatment Clinical Notes Section Notes 01/24/2025 Encounter for administration of vaccine (ICD-10 - Z23) Plan Of Treatment Next Appt Details Provider Name:Misael Gibbs ier, 03/10/2025 01:00:00 PM, [address] [facility], [address] [facility], [place], [place], [phone], Progress Notes * Kei SHERIDANDOB:1949 (75 yo M)Acc No.[id number]:01/24/2025 Progress Note Patient: Kei KAYE Provider: Christopher Williamson MD :1950 A ge:75 Y S ex:Male Date:01/24/2025 Address:[address], [id number] Subjective: * Chief Complaints: * 1 . [...] MD Date: 0 01/24/2025 Generated for Celi milton/Prem/Leidaitting on: 1 12:36 PM EDT
--- OUTSIDE RECORDS SUMMARY | 2025-03-03 05:00 | XMS_ITS ---
Author Organization Misael Williamson MD Address [address] [place], [place] [id number] Care Team Providers Care Sanitary Plumber Name Role Phone Misael Williamson Primary Care Provider Results Component Value Reference Range Notes Complete Blood Count Auto Di ff (Not yet reviewed by provider) Interpretation: Performing Lab:[facility], [address] [place] [phone] Notes/Report: White Blood Count 11.3 4.8-10.8 X10*3/uL [...] X10*3/uL NRBC Abs Auto 0.000 0.0-0.012 X10*3/uL PSA,Total (Free>4and<10) (No t yet reviewed by provider) Interpretation: Performing Lab:[address] [phone] Notes/Report: PSA,Total (Free>4and<10) 3.91 0.00-4.00 ng/mL A [...] Immunoassay (CMIA) UA ClnCatch+Micro w/rflx Cul t (Not yet reviewed by provider) Interpretation: Performing Lab:[address] [phone] Notes/Report: Urine, Clean Catch Color Urine Yellow Appearance Urine Clear PH 6.0 5.0-9.0 Glucose Urine UA Negative Negative mg/dL Urine Blood Negative Negative Specific [place] - Urine 1.015 1.005-1.025 Urine Protein Negative Neg-Trace mg/dL Urine Ketones Negative Negative mg/dL Nitrite Urine Negative Negative Leukocyte Esterase Urine Negative Negative RBC Urine 0-2 0-2 /HPF WBC Urine 0-5 0-5 /HPF Squamous Epithelial Cell Urine 0-2 0-2 /HPF Bacteria Urine None Seen None Seen Hyaline Casts Urine 0-2 0-2 /LPF Lipid Panel Reviewed date:03/03/2025 12:31:15 PM Interpretation: Performing Lab:[facility], [address] [place] [address] Notes/Report: Triglycerides 73 <150 mg/dL Desirable Triglyceride: [...] low results in patients with liver disease. REASON FOR VISIT yearly fasting labs Encounters Encounter Location Date Provider Diagnosis Misael Williamson MD [address] [place] [phone] 03/03/2025 Misael Williamson Blood tests for rout [...] Treatment Pending Test Test Name Order Date Complete Blood Count Auto Diff 5 Comprehensive Manning. Panel Fast 5 PSA,Total (Free>4and<10) 03/03/2025 UA ClnCatch+Micro w/rflx Cult 03/03/2025 Next Appt Details Provider Name:Misael srinivasan, 03/10/2025 01:00:00 PM, [address] [facility], [address], [place], [place], [phone], Progress Notes * Christiano SHERIDAN:1949 (75 yo M)Acc No.[id number]:03/03/2025 Progress Note Patient: Kei KAYE Provider: Christopher Williamson MD :1950 A ge:75 Y S ex:Male Date:03/03/2025 Address:[address] [place] [address] , [facility], [id number] Subjective: * Chief Complaints: * 1 . [...] Time - 03/03/2025 07:15 AM) L AB: Comprehensive Manning. Panel Fast L AB: PSA,Total (Free>4and<10) (Collection Date & Time - 03/03/2025 07:15 AM) L AB: UA ClnCatch+Micro w/rflx Cult (Collection Date & Time - 03/03/2025 07:15 AM) L AB: Lipid Panel (Collection Date & Time - 03/03/2025 07:15 AM) 3. E ssential (primary) hypertension L AB: Complete Blood Count Auto Diff (Collection Date & Time - 03/03/2025 07:15 AM) L AB: Comprehensive Manning. Panel Fast L AB: PSA,Total (Free>4and<10) (Collection Date & [...] Pending * Provider: Christopher Williamson MD Date: 1 Generated for Celi milton/Prem/Jaydon on: 1 12:36 PM EDT
[2025-03-03 10:30] LABS: MANUAL DIFF FLAG NO
[2025-03-03 10:44] LABS: Hematocrit 50.0 % (42.0-52.0); Hemoglobin 16.7 g/dl (14.0-18.0); Imm Gran Abs Auto 0.03 X10*3/uL (0.00-0.03); Imm Gran Pct Auto 0.3 % (0.0-0.4); Lymphocytes Absolute Auto 2.1 X10*3/uL (1.2-4.9); Mean Corpuscular HGB Conc 33.4 g/dl (31.0-36.0); Mean Corpuscular Hemoglobin 31.2 pg (27.0-33.0); Mean Corpuscular Volume 93.3 fL (80.0-98.0); NRBC Abs Auto 0.000 X10*3/uL (0.0-0.012); NRBC Pct Auto 0.0 /100WBC (0.0-0.2); Platelet Count 237 X10*3/uL (160-400); Red Blood Count 5.36 X10*6/uL (4.60-5.80); White Blood Count 11.3 X10*3/uL (4.8-10.8)
[2025-03-03 10:47] LABS: Appearance Urine Clear; Glucose Urine UA Negative (Negative); PH 6.0 (5.0-9.0); Specific Gravity - Urine 1.015 (1.005-1.025)
[2025-03-03 10:58] LABS: Alanine Aminotransferase 33 U/L (0-40); Albumin Level 4.4 g/dL (3.5-5.0); Alkaline Phosphatase 46 U/L (39-117); Anion Gap 12 (12-20); Aspartate Amino Transferase 26 U/L (5-37); Blood Urea Nitrogen 15 mg/dL (9-16); Calcium 9.2 mg/dL (8.4-10.2); Carbon Dioxide 30 mmol/L (22-29); Chloride 106 mmol/L (96-108); Cholesterol 122 mg/dL (<200); Estimated Glomerular Filt Rate > 60; HDL Cholesterol 48 mg/dL (>40); Potassium 4.9 mmol/L (3.3-5.1); Sodium 143 mmol/L (135-145); Total Protein 6.7 g/dL (6.5-8.0); Triglycerides 73 mg/dL (<150)
[2025-03-03 11:14] LABS: PSA,Total (Free>4and<10) 3.91 ng/mL (0.00-4.00)
--- OUTSIDE RECORDS SUMMARY | 2025-03-03 12:37 | XMS_ITS | Patient Health Record ---
Author Organization [facility] Address [address] [place] [address] Care Team Providers Care Senior Dentist Name Role Phone Misael Williamson MD Primary Care Provider Fransico Alegria Jr Unavailable [phone] Allergies No Known Allergies Reason For Referral No Information Medications Medication SIG (Take, Route, Frequency, Duration) Notes Start Date End Date Status amLODIPine Besy-Benazepril HCl 5-10 MG as directed Orally Active Aspirin Adult 81 MG 1 tablet Orally Once a day; Duration: 30 day(s) Active Metoprolol Succinate 50 MG 1 capsule Ora lly Once a day; Duration: 30 day(s) Active MiraLax (colon prep) 17 GM/SCOOP mixed with Gatorade or Crystal Light Orally begin at 5:00 p.m. 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 (Z79.82) Active confirmed Problem Diverticular disease of colon (729110417) Diverticulosis of large intestine without hemorrhage (K57.30) Active confirmed Problem Long-term current use of antiplatelet drug (317966024302179 ) Long-term use of aspirin therapy (Z79.82) Active confirmed Plan Of Treatment Future Test Test Name Order Date COLONOSCOPY 01/09/2013 COLONOSCOPY 08/12/2015 COLONOSCOPY 04/03/2019 COLONOSCOPY 05/25/2022 Insurance Providers Payer Name Payer Address Payer Phone Subscriber Number Group Number Insured Name Patient Relationship to Insured Coverage Start Date Coverage End Date [facility] [address] [place], [place] [id number] MILLI SILVA Self - patient is the insured Medical (General) History Medical History History ICD Code colon polyps, last colonosco py 04/24/19, 10 mm tubular adenoma, three-year followup Hypertension Elevated cholesterol Surgical History Surgery Date(Month/Year)
--- OUTSIDE RECORDS SUMMARY | 2025-03-03 12:37 | XMS_ITS | Patient Health Record ---
Author Organization Misael Williamson MD Address [address] [place], [place] [id number] Care Team Providers Care Hospice Registered Nurse Name Role Phone Misael Williamson Primary Care Provider [phone] Allergies No Known Allergies Results Component Value Reference Range Notes Complete Blood Count Auto Di ff (Not yet reviewed by provider) Interpretation: Performing Lab:[facility], [address] [place] [phone] Notes/Report: White Blood Count 11.3 4.8-10.8 X10*3/uL [...] t yet reviewed by provider) Interpretation: Performing Lab:[address] [phone] Notes/Report: PSA,Total (Free>4and<10) 3.91 0.00-4.00 ng/mL A [...] (Not yet reviewed by provider) Interpretation: Performing Lab:[address] [phone] Notes/Report: Urine, Clean Catch Color Urine Yellow Appearance Urine Clear PH 6.0 5.0-9.0 Glucose Urine UA Negative Negative mg/dL Urine Blood Negative Negative Specific [place] - Urine 1.015 1.005-1.025 Urine Protein Negative Neg-Trace mg/dL Urine Ketones Negative Negative mg/dL Nitrite Urine Negative Negative Leukocyte Esterase Urine Negative Negative RBC Urine 0-2 0-2 /HPF WBC Urine 0-5 0-5 /HPF Squamous Epithelial Cell Urine 0-2 0-2 /HPF Bacteria Urine None Seen None Seen Hyaline Casts Urine 0-2 0-2 /LPF Lipid Panel Reviewed date:03/03/2025 12:31:15 PM Interpretation: Performing Lab:[facility], [address] [place] [phone] Notes/Report: Triglycerides 73 <150 mg/dL Desirable Triglyceride: [...] low results in patients with liver disease. Occult Blood, Stool, Guaiac Reviewed date:03/05/2024 02:41:32 PM Interpretation:Negative Performing Lab: Notes/Report: Negative Occult Blood, Stool, Guaiac Neg Basic Metabolic Panel Reviewed date:09/10/2024 12:06:18 PM Interpretation: Performing Lab:[facility], [address] [place] [phone] Notes/Report: Sodium 141 135-145 mmol/L Potassium 4.2 3.3-5.1 mmol/L Chloride 106 96-108 mmol/L Carbon Dioxide 27 22-29 mmol/L Anion Gap 12 12-20 Blood Urea Nitrogen 15 9-16 mg/dL Creatinine 0.79 0.5-1.4 mg/dL Estimated Glomerular Filt Rate > 60 Chronic Kidney Disease: Estimated GFR < 60 mL/min/1.73m2 Severe Kidney Disease: Estimated GFR < 15 mL/min/1.73m2 Glucose Random 99 60-115 mg/dL Calcium 9.2 8.4-10.2 mg/dL Complete Blood Count no Diff Reviewed date:10/16/2024 04:14:05 PM Interpretation: Performing Lab:[facility], [address] [place] [phone] Notes/Report: White Blood Count 9.3 4.8-10.8 X10*3/uL Red Blood Count 5.22 4.60-5.80 X10*6/uL Hemoglobin 16.5 14.0-18.0 g/dl Hematocrit 48.1 42.0-52.0 % Mean Corpuscular Volume 92.1 80.0-98.0 fL Mean Corpuscular Hemoglobin 31.6 27.0-33.0 pg Mean Corpuscular HGB Conc 34.3 31.0-36.0 g/dl Red Cell Distribution Width 12.3 11.0-16.0 % Platelet Count 244 160-400 X10*3/uL Mean Platelet Volume 10.3 9.4-12.4 fL NRBC Pct Auto 0.0 0.0-0.2 /100WBC NRBC Abs Auto 0.000 0.0-0.012 X10*3/uL Prothrombin Time INR Reviewed date:10/16/2024 04:13:41 PM Interpretation: Performing Lab:[facility], [address] [place] [phone] Notes/Report: Prothrombin Time 10.4 10.9-12.4 SEC INTERNATIONAL NORM RATIO 0.9 0.9-1.1 INTERNATIONAL NORMALIZED RATIO (INR) REFERENCE RANGES Reference Range For patients not on anticoagulant therapy: 0.9 - 1.1 INR ranges for oral anticoagulant therapy: For prevention and treatment of venous thrombosis and pulmonary embolism: 2.0 - 3.0 For acute myocardial infarction with aspirin therapy: 2.0 - 3.0 For acute myocardial infarction without aspirin therapy: 3.0 - 4.0 For patients with mechanical prosthetic heart valves: 2.5 - 3.5 Basic Metabolic Panel Reviewed date:10/16/2024 04:11:57 PM Interpretation: Performing Lab:[facility], [address] [place] [phone] Notes/Report: Sodium 140 135-145 mmol/L Potassium 5.0 3.3-5.1 mmol/L Chloride 106 96-108 mmol/L Carbon Dioxide 29 22-29 mmol/L Anion Gap 10 12-20 Blood Urea Nitrogen 16 9-16 mg/dL Creatinine 0.84 0.5-1.4 mg/dL Estimated Glomerular Filt Rate > 60 Chronic Kidney Disease: Estimated GFR < 60 mL/min/1.73m2 Severe Kidney Disease: Estimated GFR < 15 mL/min/1.73m2 Glucose Random 104 60-115 mg/dL Calcium 9.2 8.4-10.2 mg/dL Comprehensive Met. Panel Reviewed date:03/03/2025 12:33:39 PM Interpretation: Performing Lab:[facility], [address] [place] [phone] Notes/Report: Sodium 143 135-145 mmol/L Potassium 4.9 3.3-5.1 mmol/L Chloride 106 96-108 mmol/L Carbon Dioxide 30 22-29 mmol/L Anion Gap 12 12-20 Blood Urea Nitrogen 15 9-16 mg/dL Creatinine 0.74 0.5-1.4 mg/dL Estimated Glomerular Filt Rate > 60 Chronic Kidney Disease: Estimated GFR < 60 mL/min/1.73m2 Severe Kidney Disease: Estimated GFR < 15 mL/min/1.73m2 Glucose Random 98 60-115 mg/dL Calcium 9.2 8.4-10.2 mg/dL Bilirubin Total 1.0 0.0-1.0 mg/dL Aspartate Amino Transferase 26 5-37 U/L Alanine Aminotransferase 33 0-40 U/L Total Protein 6.7 6.5-8.0 g/dL Albumin Level 4.4 3.5-5.0 g/dL Alkaline Phosphatase 46 39-117 U/L Reason For Referral No Information Medications Medication SIG (Take, Route, Frequency, Duration) Notes Start Date End Date Status Ventolin HFA * 108 (90 Base) MCG/ACT 2 puffs as needed Inhalation every 4 hrs for 30 day(s) 06/02/2016 Not-Taking Triamcinolone Acetonide 0.5 % APPLY TOPICALLY TWO TIMES D AILY Externally Twice a day for 15 days Active Indomethacin 50 MG TAKE ONE CAPSULE BY MOUTH THREE TIMES A DAY WITH FOOD FOR 10 DAYS for 10 Active Aspir-Low 81 MG 1 tablet Orally Once a day for 30 day(s) Active Metoprolol Succinate ER 50 MG TAKE ONE TABLET BY MOUTH EVERY DAY Oral Active amLODIPine Besylate 10 MG 1 tablet Orall y Once a day Active Benzonatate 200 MG 1 capsule Orally Thr ee times a day for 7 days 07/07/2022 Not-Takin g Immunizations Vaccine Route Administration Date Status Comme nts Fluarix Quadrivalent Unknown 02/21/2017 Administered [facility] Fluarix Quadrivalent IM Intramuscular 01/22/2018 Administe red Influenza High Dose IM Intramuscular 02/14/2019 Administer ed PPSV23 (Pnemovax) IM Intramuscular 11/25/2019 Administered Influenza High Dose Unknown 01/28/2020 Administered [facility] Covid Vaccine Unknown 07/15/2020 Administered Moderna SARS-COV-2 Moderna Unknown 08/12/2020 Administered Influenza High Dose IM Intramuscular 02/16/2021 Administer ed SARS-COV-2 Moderna Unknown 03/15/2021 Administered Influenza High Dose IM Intramuscular 02/08/2022 Administer ed Influenza High Dose IM Intramuscular 02/21/2023 Administer ed Influenza High Dose IM Intramuscular 02/27/2024 Administer ed Influenza High Dose IM Intramuscular 01/24/2025 Administer ed PPSV23 (Pnemovax) Unknown 12/12/2014 Refused [...] W/U Status Risk Notes Problem Essential hypertension (72033991) Essential (primary) hypertension (I10) Active confirmed Problem 776560867 Tubular adenoma of colon (D12.6) Active confirmed Problem 005118480 History of gout (Z87.39) Active confirmed Problem 175625657 Pure hypercholesterolemia (E78.00) Active confirmed Problem 11078033 Aortic valve insufficiency, etiology of cardiac valve disease unspecified (I35.1) Active confirmed Problem 78470814 Asymptomatic PVC s (I49.3) Active confirmed Vital Signs Blood pressure diastolic 60 mm Hg 09/02/2024 Height 69 in 09/02/2024 Blood pressure systolic 118 mm Hg 09/02/2024 Weight 222 lbs 09/02/2024 BMI 32.78 kg/m2 09/02/2024 Encounters Encounter Location Date Provider Diagnosis Misael Williamson MD [address] [place] [phone] 01/24/2025 Misael Williamson Encounter for administration of vaccine Z23 Misael Williamson MD [address] [place] [address] [id number] 03/03/2025 Misael Williamson Blood tests for rout ine general physical examination Z00.00 ; Pure hypercholesterolemia E78.00 and Essential (primary) hypertension I10 Misael Williamson MD [address] [place] [address] [phone] 03/05/2024 Misael Williamson Pure hypercholestero lemia E78.00 ; Annual physical exam Z00.00 ; Essential (primary) hypertension I10 ; Colon cancer screening Z12.11 and Depression screening Z13.31 Misael Williamson MD [address] [place] [address] [phone] 09/02/2024 Misael Williamson Abnormal stress test R94.39 Misael Wililamson MD [address] [place] [address] [phone] 11/25/2024 Msiael Williamson Assessments Encounter Date Diagnosis (ICD Code) Assessment Notes Treatment Notes Treatment Clinical Notes Section Notes 01/24/2025 Encounter for administration of vaccine (ICD-10 - Z23) 03/03/20[address] tests [address] ine general physical examination (ICD-10 - Z00.00) 03/05/2024 Pure hypercholesterolemia (ICD-10 - E78.00) well controlled. 03/05/2024 Annual physical exam (ICD-10 - Z00.00) labs reviewed and discussed with patient 09/02/2024 Abnormal stress test (ICD-10 - R94.39) not having any symptons to suggest cad but is going to have the studies here for follow up/ is getting cardiac [facility] at [facility] 03/03/2025 Pure hypercholesterolemia (ICD-10 - E78.00) 03/05/2024 Essential (primary) hypertension (ICD-10 - I10) doing well on meds, will continue current regiment 03/03/2025 Essential (primary) hypertension (ICD-10 - I10) 03/05/2024 Colon cancer screeni ng (ICD-10 - Z12.11) guaiac negative 03/05/2024 Depression screening (ICD-10 - Z13.31) negative screen 09/02/2024 Other conitnues to have a rahsh that responded to steroid. will contine here for follow up/ is getting cardiac ct. at [facility] Plan Of Treatment Pending Test Test Name Order Date Electrocardiogram (EKG) 12/22/2015 Electrocardiogram (EKG) 12/30/2016 Electrocardiogram (EKG) 02/01/2018 ECHO 08/25/2022 Complete Blood Count Auto Diff 5 Comprehensive [place]. Panel Fast 5 PSA,Total (Free>4and<10) 03/03/2025 UA ClnCatch+Micro w/rflx Cult 03/03/2025 Next Appt Details Provider Name:Misael Gibbs ier, 03/10/2025 01:00:00 PM, [address] [place] [address], [place] [address], [place], [place], [phone], Insurance Providers Payer Name Payer Address Payer Phone Subscriber Number Group Number Insured Name Patient Relationship to Insured Coverage Start Date Coverage End Date [employer] [address] [place], [place] [id number] Kei Bah Self - patient is the insured MED[employer] [address] [place] [address] [id number] Kei Bah Self - patient is the insured Medical (General) History Medical History History ICD Code colonoscopy 2009. due 2012; Colonoscopy 03/27/2013 due in 3 years; colonoscopy done 10/14/15 w/Dr. Muse; Colonoscopy done 04/24/[address] Muse (biopsy done): 06/21/22 colonoscopy done, awaiting path Refuses flu shot - 1-7-13
== END 2025-03-03 10:27 | disposition home or self-care (01) ==
LOC: HO.LNP 10:26
PROVIDERS: Visit Provider Internal Medicine
DX: Z00.00 Encounter for general adult medical examination without abnormal findings (principal); Z12.5 Encounter for screening for malignant neoplasm of prostate; I10 Essential (primary) hypertension; E78.00 Pure hypercholesterolemia, unspecified
CPT/HCPCS: 80053; 80061; 81001; 84153; 85025

== ENCOUNTER 2025-03-20 12:35 | Outpatient (AMB) | payer MEDICARE, SELFPAY ==
--- OUTSIDE RECORDS SUMMARY | 2024-02-27 02:30 | XMS_ITS ---
Author Organization Misael Williamson MD Address [address] [place], [place] [id number] Care Team Providers Care Patcher Helper Name Role Phone Misael Williamson Primary Care Provider Results Component Value Reference Range Notes Complete Blood Count Auto Di ff Reviewed date:02/27/2024 08:32:39 PM Interpretation: Performing Lab:[facility], [address] [place] [phone] Notes/Report: White Blood Count 7.5 4.8-10.8 X10*3/uL Red Blood Count 5.10 4.60-5.80 X10*6/uL Hemoglobin 17.0 14.0-18.0 g/dl Hematocrit 49.5 42.0-52.0 % Mean Corpuscular Volume 97.1 80.0-98.0 fL Mean Corpuscular Hemoglobin 33.3 27.0-33.0 pg Mean Corpuscular HGB Conc 34.3 31.0-36.0 g/dl Red Cell Distribution Width 13.0 11.0-16.0 % Platelet Count 237 160-400 X10*3/uL Mean Platelet Volume 10.4 9.4-12.4 fL Neutrophils Percent Auto 62.9 45-73 % Imm Gran Pct Auto 0.4 0.0-0.4 % Lymphocytes Percent Auto 24.4 20-40 % Monocytes Percent Auto 8.4 2-11 % Eosinophils Percent Auto 3.5 0-4 % Basophils Percent Auto 0.4 0-2 % NRBC Pct Auto 0.0 0.0-0.2 /100WBC Neutrophils Absolute Auto 4.7 2.0-8.3 x10*3/u L Imm Gran Abs Auto 0.03 0.00-0.03 X10*3/uL Lymphocytes Absolute Auto 1.8 1.2-4.9 X10*3/u L Monocytes Absolute Auto 0.6 0.1-1.2 X10*3/uL Eosinophils Absolute Auto 0.3 0.0-0.4 X10*3/u L Basophils Absolute Auto 0.0 0.0-0.2 X10*3/uL NRBC Abs Auto 0.000 0.0-0.012 X10*3/uL Comprehensive [place]. Panel Fa st Reviewed date:02/27/2024 08:33:01 PM Interpretation: Performing Lab:[facility], [address] [place] [phone] Notes/Report: Sodium 141 135-145 mmol/L Potassium 4.6 3.3-5.1 mmol/L Chloride 106 96-108 mmol/L Carbon Dioxide 29 22-29 mmol/L Anion Gap 11 12-20 Blood Urea Nitrogen 15 9-16 mg/dL Creatinine 0.86 0.5-1.4 mg/dL Estimated Glomerular Filt Rate > 60 NOTE: For -[place] individuals, multiply the result by 1.210. Chronic Kidney Disease: Estimated GFR < 60 mL/min/1.73m2 Severe Kidney Disease: Estimated GFR < 15 mL/min/1.73m2 Glucose Fasting 110 60-99 mg/dL A fasting glucose from 100-125 mg/dl is considered impaired (pre-diabetes). Calcium 9.6 8.4-10.2 mg/dL Bilirubin Total 1.1 0.0-1.0 mg/dL Aspartate Amino Transferase 26 5-37 U/L Alanine Aminotransferase 30 0-40 U/L Total Protein 6.5 6.5-8.0 g/dL Albumin Level 4.1 3.5-5.0 g/dL Alkaline Phosphatase 35 39-117 U/L Lipid Panel Reviewed date:02/27/2024 05:44:13 PM Interpretation: Performing Lab:[facility], [address] [place] [phone] Notes/Report: Triglycerides 125 <150 mg/dL Desirable Triglyceride: less than 150 mg/dL Borderline High Triglyceride 150-199 mg/dL High Triglyceride: 200-499 mg/dL Very High Triglyceride: greater than or equal to 5OO mg/dL Cholesterol 216 <200 mg/dL Desirable Cholesterol: less than 200 mg/dL Borderline High Cholesterol: 200-239 mg/dL High Cholesterol: greater than 239 mg/dL LDL Cholesterol Calculated 137 <100 mg/dL Desirable LDL: less than 100 mg/dL Near Optimal/Above Optimal LDL: 110-129 mg/dL Borderline High LDL: 130-159 mg/dL High LDL: 160-189 mg/dL Very High LDL: greater than or equal to 190 mg/dL HDL Cholesterol 54 >40 mg/dL Desirable HDL: greater than 40 mg/dL Note: This HDL assay may give artificially low results in patients with liver disease. PSA,Total (Free>4and<10) Reviewed date:02/27/2024 05:43:31 PM Interpretation: Performing Lab:[facility], [address] [place] [phone] Notes/Report: PSA,Total (Free>4and<10) 2.79 0.00-4.00 ng/mL A Free PSA was not performed: The percentage of Free PSA can be used to enhance the differentiation of prostate cancer from benign prostatic disease in subjects whose PSA levels are between 4.0 and 10.0 ng/mL. For subjects whose PSA levels are below 4.0 or above 10.0 ng/mL, the risk of prostate cancer is determined on the basis of the PSA alone. Therefore the % Free PSA is recommended only for those subjects whose PSA levels are between 4.0 and 10.0 ng/mL. PSA methodology: Vanegas Alinity i Chemiluminescent Microparticle Immunoassay (CMIA) UA ClnCatch+Micro w/rflx Cul t Reviewed date:02/27/2024 08:33:48 PM Interpretation: Performing Lab:[facility], [address] [place] [phone] Notes/Report: Urine, Clean Catch Color Urine Dark Yellow Appearance Urine Clear PH 6.0 5.0-9.0 Glucose Urine UA Negative Negative mg/dL Urine Blood Negative Negative Specific [place] - Urine 1.020 1.005-1.025 Urine Protein Negative Neg-Trace mg/dL Urine Ketones Negative Negative mg/dL Nitrite Urine Negative Negative Leukocyte Esterase Urine Negative Negative RBC Urine 0-2 0-2 /HPF WBC Urine 0-5 0-5 /HPF Squamous Epithelial Cell Urine 0-2 0-2 /HPF Bacteria Urine None Seen None Seen Hyaline Casts Urine 0-2 0-2 /LPF REASON FOR VISIT yearly fasting labs Immunizations Vaccine Route Administration Date Status Comme nts Influenza High Dose IM Intramuscular 02/27/2024 Administer ed Encounters Encounter Location Date Provider Diagnosis Misael Williamson MD [address] [place] [phone] 02/27/2024 Misael Williamson Blood tests for rout ine general physical examination Z00.00 ; Pure hypercholesterolemia E78.00 ; Essential (primary) hypertension I10 and Encounter for immunization Z23 Assessments Encounter Date Diagnosis (ICD Code) Assessment Notes Treatment Notes Treatment Clinical Notes Section Notes 02/27/2024 [address] tests [address] ine general physical examination (ICD-10 - Z00.00) 02/27/2024 Pure hypercholesterolemia (ICD-10 - E78.00) 02/27/2024 Essential (primary) hypertension (ICD-10 - I10) 02/27/2024 Encounter for immunization (ICD-10 - Z23) Plan Of Treatment Next Appt Details Provider Name:Misael srinivasan, 05/12/2025 07:45:00 AM, [address] [place] [address], [phone], Provider Name:Misael srinivasan, 09/02/2025 07:30:00 AM, [address] [place] [address], [phone], Provider Name:Misael srinivasan, 09/08/2025 10:00:00 AM, [address] [place] [address], [phone], Provider Name:Misael srinivasan, 03/06/2026 07:30:00 AM, [address] [place] [address], [phone], Provider Name:Misael srinivasan, 03/13/2026 01:00:00 PM, [address] [place] [address], [phone], Progress Notes * Christiano SHERIDAN:1949 (74 yo M)Acc No.[id number]:02/27/2024 Progress Note Patient: Kei Paredes Provider: Christopher Williamson MD :1950 A ge:74 Y S ex:Male Date:02/27/2024 Address:[address] [place] [address] , [facility], [id number] Subjective: * Chief Complaints: * Y early fasting labs * Medical History: * Surgical History: * Hospitalization/Major Diagno stic Procedure: * Medications: Objective: Assessment: * Assessment: 1. B lood tests for routine general physical examination - Z00.00 (Primary) 2 . P ure hypercholesterolemia - E78.00 3 . E ssential (primary) hypertension - I10 4 . E ncounter for immunization - Z23 Plan: * Treatment: 2. P ure hypercholesterolemia L AB: Complete Blood Count Auto Diff L AB: Comprehensive [place]. Panel Fast L AB: Lipid Panel L AB: PSA,Total (Free>4and<10) L AB: UA ClnCatch+Micro w/rflx Cult 3. E ssential (primary) hypertension L AB: Complete Blood Count Auto Diff L AB: Comprehensive [place]. Panel Fast L AB: Lipid Panel L AB: PSA,Total (Free>4and<10) L AB: UA ClnCatch+Micro w/rflx Cult * Immunizations: Influenza High Dose : 0.5 mL (Dose No:1) (Route: Intramuscular) given by Linda Hsieh on Left Deltoid * Procedure Codes: 3 6415 VENIPUNCT, ROUTINE*86184 FLU VACC PRSV FREE INC [id number] ADMN FLU VAC NO FEE SCHED SAME DAY * * Sign off status: Completed true * Provider: Christopher Williamson MD Date: Generated for Celi milton/Prem/eTkristensmitting on: 05/20/2024 03:44 PM EST
--- OUTSIDE RECORDS SUMMARY | 2024-03-05 08:00 | XMS_ITS ---
Author Organization Misael Williamson MD Address [address] [place], [place] [id number] Care Team Providers Care Auto Design Checker Name Role Phone Misael Williamson Primary Care Provider Allergies No Known Allergies Results Component Value Reference Range Notes Occult Blood, Stool, Guaiac Reviewed date:03/05/2024 02:41:32 PM Interpretation:Negative Performing Lab: Notes/Report: Negative Occult Blood, Stool, Guaiac Neg REASON FOR VISIT annual visit, c/o right elbow pain x 2 weeks Medications Medication SIG (Take, Route, Frequency, Duration) Notes Start Date End Date Status Metoprolol Succinate ER 50 MG TAKE ONE TABLET BY MOUTH EVERY DAY Oral Active Aspir-Low 81 MG 1 tablet Orally Once a day for 30 day(s) Active amLODIPine Besylate 10 MG 1 tablet Orall y Once a day Active Ventolin HFA * 108 (90 Base) MCG/ACT 2 puffs as needed Inhalation every 4 hrs for 30 day(s) 06/02/2016 Not-Taking Indomethacin 50 MG TAKE ONE CAPSULE BY MOUTH THREE TIMES A DAY WITH FOOD FOR 10 DAYS for 10 Not-Taking Benzonatate 200 MG 1 capsule Orally Thr ee times a day for 7 days 07/07/2022 Not-Takin g Triamcinolone Acetonide 0.5 % APPLY TOPICALLY TWO TIMES D AILY Externally Twice a day for 15 days Not-Taking Social History Tobacco Use: Social History Observation Description Date Details (start date - stop date) Former Smoker NA - NA Tobacco Use/Smoking Question Answer Notes Patient is a former smoker How long has it been since y ou last smoked? > 10 years Additional Findings: Tobacco Non-User Fo rmer smoker, currently using no form of tobacco Alcohol Screen Question Answer Notes Did you have a drink contain ing alcohol in the past year? Yes How often did you have a dri nk containing alcohol in the past year? Monthly or less (1 point) How many drinks did you have on a typical day when you were drinking in the past year? 1 or 2 drinks (0 point) How often did you have 6 or more drinks on one occasion in the past year? Never (0 point) Points 1 Interpretation Negative Vital Signs Blood pressure systolic 142 mm Hg 03/05/20 24 Blood pressure diastolic 74 mm Hg 024 Height 69 in 03/05/2024 Weight 222 lbs 03/05/2024 BMI 32.78 kg/m2 03/05/2024 weight is down 2 pounds [facility] 08-31-23 Encounters Encounter Location Date Provider Diagnosis Misael Williamson MD [address] [place] [address] [address] [place], [place] [phone] 03/05/2024 Misael Williamson Pure hypercholestero lemia E78.00 ; Annual physical exam Z00.00 ; Essential (primary) hypertension I10 ; Colon cancer screening Z12.11 and Depression screening Z13.31 Assessments Encounter Date Diagnosis (ICD Code) Assessment Notes Treatment Notes Treatment Clinical Notes Section Notes 03/05/2024 Pure hypercholesterolemia (ICD-10 - E78.00) well controlled. 03/05/2024 Annual physical exam (ICD-10 - Z00.00) labs reviewed and discussed with patient 03/05/2024 Essential (primary) hypertension (ICD-10 - I10) doing well on meds, will continue current regiment 03/05/2024 Colon cancer screeni ng (ICD-10 - Z12.11) guaiac negative 03/05/2024 Depression screening (ICD-10 - Z13.31) negative screen Plan Of Treatment Medication Medication Name Sig Start Date Stop Date Notes Metoprolol Succinate ER 50 MG TAKE ONE T ABLET BY MOUTH EVERY DAY Oral amLODIPine Besylate 10 MG 1 tablet Orally Once a day Treatment Notes Assessment Notes Pure hypercholesterolemia well controlle d. Annual physical exam labs reviewed and d iscussed with patient Essential (primary) hypertension doing w ell on meds, will continue current regiment Colon cancer screening guaiac negative Depression screening negative screen Next Appt Details Follow Up: 6 Months, Reason: Provider Name:Misael Gibbs robinr, 05/12/2025 07:45:00 AM, [address] [place] [address], [address], [place], [phone], Provider Name:Misael Gibbs robinr, 09/02/2025 07:30:00 AM, [address] [place] [address], [address], [place], [place], [phone], Provider Name:Misael Gibbs robinr, 09/08/2025 10:00:00 AM, [address] [place] [address], [address], [place], [place], [phone], Provider Name:Misael Gibbs robinr, 03/06/2026 07:30:00 AM, [address] [place] [address], [address] [facility], [place], [phone], Provider Name:Misael Gibbs robinr, 03/13/2026 01:00:00 PM, [address] [place] [address], [place] [address], [place], [place], [phone], Progress Notes * Kei SHERIDANDOB:1949 (74 yo M)Acc No.[id number]:03/05/2024 Progress Notes Patient: Kei Paredes Provider: Christopher Williamson MD :1950 A ge:74 Y S ex:Male Date:03/05/2024 Address:[address] [place] [address] , [place], [place] Subjective: * Chief Complaints: * A nnual visitC/o right elbow pain x 2 weeks * HPI: D epression Screening: PHQ-9 L ittle interest or pleasure in doing things N ot at all, F eeling down, depressed, or hopeless N ot at all, T rouble falling or staying asleep, or sleeping too much N ot at all, F eeling tired or having little energy N ot at all, P oor appetite or overeating N ot at all, F eeling bad about yourself or that you are a failure, or have let yourself or your family down N ot at all, T rouble concentrating on things, such as reading the newspaper or watching television N ot at all, M oving or speaking so slowly that other people could have noticed; or the opposite, being so fidgety or restless that you have been moving around a lot more than usual N ot at all, T houghts that you would be better off or of hurting yourself in some way N ot at all, T otal Score 0 . I nterpretation and Intervention D epression Screening Findings N egative, F ollow-Up for Depression : review of PHQ-9 found negative result, no follow-up needed. C ommunication Needs: Communication Needs D oes the patient have a hearing impairment N o, D oes the patient have a vision impairment? Y es, I f yes, what is the vision impairment? G lasses, D oes the patient have a cognition impairment? N o. F all Risk: History H ave you had any falls with injury in the past year? N o, H ave you had two or more falls in the past year? N o. S SULLY Questions: SDOH Questions I n the past year have you been worried about losing housing? N o, I n the past year have you or any family members you live with been unable to get any of the following when it was really needed? Check all that apply: N one. S ymptom(s): patient is a 74 yo male here for yearly evaluation with review of recent labs and follow up of chronic issues. Also complaining of right elbow pain for 2 weeks. * ROS: G eneral/Constitutional: Patient denies f atigue , headache. C hange in appetite?denies. C hills d enies. F ever d enies. O phthalmologic: Blurred vision d enies. D ischarge d enies. P ain d enies. E NT: Patient denies d ecreased sense of smell , any loss of taste , sore throat. D ecreased hearing d enies. S ore throat d enies. S wollen glands d enies. E ndocrine: Cold intolerance d enies. E xcessive thirst d enies. H eat intolerance d enies. W eight loss d enies. R espiratory: Cough d enies. S hortness of breath at rest d enies. S hortness of breath with exertion d enies. W heezing d enies. C ardiovascular: Chest pain at rest d enies. C hest pain with exertion?denies. I rregular heartbeat d enies. S hortness of breath d enies. ? G astrointestinal: Abdominal pain d enies. C hange in bowel habits d enies. D iarrhea d enies. N ausea d enies. R ectal bleeding d enies. V omiting d enies . G enitourinary: Blood in urine d enies. D ifficulty urinating d enies. F requent urination d enies. M usculoskeletal: Patient denies m uscle aches. P ainful joints d enies. W eakness d enies. P eripheral Vascular: Patient denies r ed and blue toes. S kin: Dry skin d enies. I tching d enies. D enies?Mole(s), changes in moles, new moles or any lesions of concern. D enies P hotosensitivity. R hali d enies. N eurologic: Dizziness d enies. F ainting d enies. H eadache?denies. * Medical History: * Surgical History: * Hospitalization/Major Diagno stic Procedure: * Family History: F ather: 102 yrs, diagnosed with Cancer. M other: 94 yrs, diagnosed with Cancer. 2 brother(s) , 1 sister(s) . 2 daughter(s) . . Mother- old age, Denies mental health/substance abuse family history, No pertinent family medical history, No pertinent family medical history, Denies mental health/substance abuse family history. * Social History: T obacco Use: T obacco Use/Smoking P atient is a f ormer smoker, H ow long has it been since you last smoked? > 10 years, A dditional Findings: Tobacco Non-User F ormer smoker, currently using no form of tobacco. D rugs/Alcohol: A lcohol Screen D id you have a drink containing alcohol in the past year? Y es, H ow often did you have a drink containing alcohol in the past year? M onthly or less (1 point), H ow many drinks did you have on a typical day when you were drinking in the past year? 1 or 2 drinks (0 point), H ow often did you have 6 or more drinks on one occasion in the past year? N ever (0 point), P oints 1 , I nterpretation N egative. M iscellaneous: C affeine: yes, , 1-2 cups per day. Children: yes. no Community involvements. Exercise: yes, walk, 45 minutes QD and golf. Housing: owning. Living with: spouse. Marital status: . Occupation: works part-time, and retired. Pets: none. no Travel outside of the [place]. * Medications: T akingAspir-Low 81 MG Tablet Delayed Release 1 tablet Orally Once a dayMetoprolol Succinate ER 50 MG Tablet Extended Release 24 Hour TAKE ONE TABLET BY MOUTH EVERY DAY Oral amLODIPine Besylate 10 MG Tablet 1 tablet Orally Once a dayTaking Aspir-Low 81 MG Tablet Delayed Release 1 tablet Orally Once a dayTaking Metoprolol Succinate ER 50 MG Tablet Extended Release 24 Hour TAKE ONE TABLET BY MOUTH EVERY DAY Oral Taking amLODIPine Besylate 10 MG Tablet 1 tablet Orally Once a dayNot- Taking/PRNBenzonatate 200 MG Capsule 1 capsule Orally Three times a dayTriamcinolone Acetonide 0.5 % Cream APPLY TOPICALLY TWO TIMES D AILY Externally Twice a dayIndomethacin 50 MG Capsule TAKE ONE CAPSULE BY MOUTH THREE TIMES A DAY WITH FOOD FOR 10 DAYS Ventolin HFA * 108 (90 Base) MCG/ACT Aerosol Solution 2 puffs as needed Inhalation every 4 hrsMedication List reviewed and reconciled with the patientNot-Taking/PRN Benzonatate 200 MG Capsule 1 capsule Orally Three times a dayNot-Taking/PRN Triamcinolone Acetonide 0.5 % Cream APPLY TOPICALLY TWO TIMES D AILY Externally Twice a dayNot-Taking/PRN Indomethacin 50 MG Capsule TAKE ONE CAPSULE BY MOUTH THREE TIMES A DAY WITH FOOD FOR 10 DAYS Not-Taking/PRN Ventolin HFA * 108 (90 Base) MCG/ACT Aerosol Solution 2 puffs as needed Inhalation every 4 hrsMedication List reviewed and reconciled with the patient * Allergies: N .K.D.A.yes[Allergies Verified] Objective: * Vitals: H t: 69, Wt:222, BMI:32.78, BP:142/74, Repeat BP:130/80 weight is down 2 pounds since 08-31-23. * P ast Orders: L ab:Comprehensive Nursery. Panel Fast (Order Date - 02/27/2024) (Collection Date - 02/27/2024) Value Reference Range Sodium 141 135-145 - mmol/L Bilirubin Total 1.1 H 0.0-1.0 - mg/dL Aspartate Amino Transferase 26 5-37 - U/L Alanine Aminotransferase 30 0-40 - U/L Total Protein 6.5 6.5-8.0 - g/dL Albumin Level 4.1 3.5-5.0 - g/dL Alkaline Phosphatase 35 L 39-117 - U/L Potassium 4.6 3.3-5.1 - mmol/L Chloride 106 96-108 - mmol/L Carbon Dioxide 29 22-29 - mmol/L Anion Gap 11 L 12-20 - Blood Urea Nitrogen 15 9-16 - mg/dL Creatinine 0.86 0.5-1.4 - mg/dL Estimated Glomerular Filt Rate > 60 - Glucose Fasting 110 H 60-99 - mg/dL Calcium 9.6 8.4-10.2 - mg/dL L ab:Complete Blood Count Auto Diff (Order Date - 02/27/2024) (Collection Date - 02/27/2024) Value Reference Range White Blood Count 7.5 4.8-10.8 - X10*3/uL Red Blood Count 5.10 4.60-5.80 - X10*6/uL Hemoglobin 17.0 14.0-18.0 - g/dl Hematocrit 49.5 42.0-52.0 - % Mean Corpuscular Volume 97.1 80.0-98.0 - fL Mean Corpuscular Hemoglobin 33.3 H 27.0-33.0 - pg Mean Corpuscular HGB Conc 34.3 31.0-36.0 - g/ dl Red Cell Distribution Width 13.0 11.0-16.0 - % Platelet Count 237 160-400 - X10*3/uL Mean Platelet Volume 10.4 9.4-12.4 - fL Neutrophils Percent Auto 62.9 45-73 - % Imm Gran Pct Auto 0.4 0.0-0.4 - % Lymphocytes Percent Auto 24.4 20-40 - % Monocytes Percent Auto 8.4 2-11 - % Eosinophils Percent Auto 3.5 0-4 - % Basophils Percent Auto 0.4 0-2 - % NRBC Pct Auto 0.0 0.0-0.2 - /100WBC Neutrophils Absolute Auto 4.7 2.0-8.3 - x10* 3/uL Imm Gran Abs Auto 0.03 0.00-0.03 - X10*3/uL Lymphocytes Absolute Auto 1.8 1.2-4.9 - X10* 3/uL Monocytes Absolute Auto 0.6 0.1-1.2 - X10*3/ uL Eosinophils Absolute Auto 0.3 0.0-0.4 - X10* 3/uL Basophils Absolute Auto 0.0 0.0-0.2 - X10*3/ uL NRBC Abs Auto 0.000 0.0-0.012 - X10*3/uL L ab:UA ClnCatch+Micro w/rflx Cult (Order Date - 02/27/2024) (Collection Date - 02/27/2024) Value Reference Range Color Urine Dark Yellow - Appearance Urine Clear - PH 6.0 5.0-9.0 - Glucose Urine UA Negative Negative - mg/dL Urine Blood Negative Negative - Specific [place] - Urine 1.020 1.005-1.025 - Urine Protein Negative Neg-Trace - mg/dL Urine Ketones Negative Negative - mg/dL Nitrite Urine Negative Negative - Leukocyte Esterase Urine Negative Negative - RBC Urine 0-2 0-2 - /HPF WBC Urine 0-5 0-5 - /HPF Squamous Epithelial Cell Urine 0-2 0-2 - /HP F Bacteria Urine None Seen None Seen - Hyaline Casts Urine 0-2 0-2 - /LPF L ab:PSA,Total (Free>4and<10) (Order Date - 02/27/2024) (Collection Date - 02/27/2024) Value Reference Range PSA,Total (Free>4and<10) 2.79 0.00-4.00 - ng/ mL L ab:Lipid Panel (Order Date - 02/27/2024) (Collection Date - 02/27/2024) Value Reference Range Triglycerides 125 <150 - mg/dL Cholesterol 216 H <200 - mg/dL LDL Cholesterol Calculated 137 H <100 - mg/dL HDL Cholesterol 54 >40 - mg/dL * Examination: G eneral Examination: GENERAL APPEARANCE: w ell developed, well nourished, in no acute distress. HEAD: n ormocephalic, atraumatic. EYES: p upils equal, round, reactive to light and accommodation, sclera non-icteric. EARS: n ormal. ORAL CAVITY: m ucosa moist. THROAT: c lear. NECK/THYROID: n kavon supple, full range of motion, no cervical lymphadenopathy, no bruits. SKIN: w arm and dry, no suspicious lesions. HEART: r egular rate and rhythm, S1, S2 normal, no murmurs.? LUNGS: c lear to auscultation bilaterally. ABDOMEN: s oft, nontender, nondistended, bowel sounds present, normal, no organomegaly , no masses palpable. RECTAL EXAM: n ormal tone, no external hemorrhoids, no masses palpable, prostate normal, stool guaiac negative. MALE GENITOURINARY: c ircumcised, no penile lesions or discharge, testes descended bilaterally, no testicular mass. EXTREMITIES: n o clubbing, cyanosis, or edema with tender lateral epicondyle. NEUROLOGIC: n onfocal, motor strength normal upper and lower extremities, sensory exam intact. Assessment: * Assessment: 1. A nnual physical exam - Z00.00 (Primary) 2 . P ure hypercholesterolemia - E78.00?3. E ssential (primary) hypertension - I10 4 . C olon cancer screening - Z12.11 5 . D epression screening - Z13.31 Plan: * Treatment: 2. P ure hypercholesterolemia Notes: well controlled. 3. E ssential (primary) hypertension Continue Metoprolol Succinate ER Tablet Extended Release 24 Hour, 50 MG, TAKE ONE TABLET BY MOUTH EVERY DAY, Oral; C ontinue amLODIPine Besylate Tablet, 10 MG, 1 tablet, Orally, Once a day. ? Notes: doing well on meds, will continue current regiment 4. C olon cancer screening L AB: Occult Blood, Stool, Guaiac N egative Value Reference Range O ccult Blood, Stool, Guaiac Neg Notes: guaiac negative??5.?Depression screening? Notes: negative screen?? * Procedure Codes: 8 2210 TEST FOR BLOOD, FECES * Preventive Medicine: Counseling: C are goal follow-up plan: C ounseling for abnormal BMI provided?Yes, Anisa cueto Normal BMI Follow-up Christopher vazquez encouragement to exercise. * Follow Up: 6 Months * * Sign off status: Completed true * Provider: Christopher Williamson MD Date: Generated for Celi milton/Prem/eTransmitting on: 05/20/2024 03:43 PM EST History and Physical Notes * HPI (History of Present Illness) Category Sub-Category Detail Notes Category Not es Symptom(s) patient is a 74 yo male here for yearly evaluation with review of recent labs and follow up of chronic issues. Also complaining of right elbow pain for 2 weeks Depression Screening PHQ-9 Little inte rest or pleasure in doing things: Not at all Feeling down, depressed, or hopeless: No t at all Trouble falling or staying asleep, or sl eeping too much: Not at all Feeling tired or having little energy: N ot at all Poor appetite or overeating: Not at all Feeling bad about yourself o r that you are a failure, or have let yourself or your family down: Not at all Trouble concentrating on thi ngs, such as reading the newspaper or watching television: Not at all Moving or speaking so slowly that other people could have noticed; or the opposite, being so fidgety or restless that you have been moving around a lot more than usual: Not at all Thoughts that you would be b mima off or of hurting yourself in some way: Not at all Total Score: 0 Interpretation and Intervention Depression Martin bonds Findings: Negative Follow-Up for Depression: : review of PH Q-9 found negative result, no follow-up needed SDOH Questions SDOH Questions In the past year have you been worried about losing housing?: No In the past year have you or any family members you live with been unable to get any of the following when it was really needed? Check all that apply:: None Fall Risk History Have you had any falls with injury i n the past year?: No Have you had two or more falls in the st year?: No Communication Needs Communication Needs Does the patient have a hearing impairment: No Does the patient have a vision impairmen t?: Yes If yes, what is the vision impairment?: Glasses Does the patient have a cognition impair ment?: No Examination Category Sub-Category Detail Notes Category Not es General Examination GENERAL APPEARANCE: well dev eloped, well nourished, in no acute distress HEAD: normocephalic, atrau matic EYES: pupils equal, round, reactive to light and accommodation, sclera non-icteric EARS: normal THROAT: clear NECK/THYROID: neck supple, full ra nge of motion, no cervical lymphadenopathy, no bruits HEART: regular rate and rhy thm, S1, S2 normal, no murmurs LUNGS: clear to auscultatio n bilaterally ABDOMEN: soft, nontender, non distended, bowel sounds present, normal, no organomegaly , no masses palpable NEUROLOGIC: nonfocal, motor stre ngth normal upper and lower extremities, sensory exam intact SKIN: warm and dry, no manjit picious lesions EXTREMITIES: no clubbing, cyanosi s, or edema with tender lateral epicondyle MALE GENITOURINARY: circumcised, no peni le lesions or discharge, testes descended bilaterally, no testicular mass RECTAL EXAM: normal tone, no exte rnal hemorrhoids, no masses palpable, prostate normal, stool guaiac negative ORAL CAVITY: mucosa moist
--- OUTSIDE RECORDS SUMMARY | 2024-09-02 09:00 | XMS_ITS ---
Author Organization Misael Williamson MD Address [address] [place] [phone] Care Team Providers Care Treating Engineer Name Role Phone Misael Williamson Primary Care Provider Allergies No Known Allergies REASON FOR VISIT 6 month Medications Medication SIG (Take, Route, Frequency, Duration) Notes Start Date End Date Status Aspir-Low 81 MG 1 tablet Orally Once a day for 30 day(s) Active Metoprolol Succinate ER 50 MG TAKE ONE TABLET BY MOUTH EVERY DAY Oral Active amLODIPine Besylate 10 MG 1 tablet Orall y Once a day Active Benzonatate 200 MG 1 capsule Orally Thr ee times a day for 7 days 07/07/2022 Not-Takin g Indomethacin 50 MG TAKE ONE CAPSULE BY MOUTH THREE TIMES A DAY WITH FOOD FOR 10 DAYS for 10 Not-Taking Ventolin HFA * 108 (90 Base) MCG/ACT 2 puffs as needed Inhalation every 4 hrs for 30 day(s) 06/02/2016 Not-Taking Triamcinolone Acetonide 0.5 % APPLY TOPICALLY TWO TIMES D AILY Externally Twice a day for 15 days Active Vital Signs Blood pressure systolic 118 mm Hg 09/03/19 25 Blood pressure diastolic 60 mm Hg 025 Height 69 in 09/02/2024 Weight 222 lbs 09/02/2024 BMI 32.78 kg/m2 09/02/2024 Encounters Encounter Location Date Provider Diagnosis Misael Williamson MD [address] [place] [phone] 09/02/2024 Misael Williamson Abnormal stress test R94.39 Assessments Encounter Date Diagnosis (ICD Code) Assessment Notes Treatment Notes Treatment Clinical Notes Section Notes 09/02/2024 Abnormal stress test (ICD-10 - R94.39) not having any symptons to suggest cad but is going to have the studies here for follow up/ is getting cardiac ct. at [facility] 09/02/2024 Other conitnues to have a rahsh that responded to steroid. will contine here for follow up/ is getting cardiac ct. at [facility] Plan Of Treatment Medication Medication Name Sig Start Date Stop Date Notes Triamcinolone Acetonide 0.5 % APPLY TOPI [place] TWO TIMES D AILY Externally Twice a day for 15 days Treatment Notes Assessment Notes Abnormal stress test not having any symp tons to suggest cad but is going to have the studies Other conitnues to have a rahsh that responded to steroid. will contine Next Appt Details Provider Name:Misael srinivasan, 05/12/2025 07:45:00 AM, [address] [place] [address], [address], [phone], Provider Name:Misael srinivasan, 09/02/2025 07:30:00 AM, [address] [place] [address], [address], [phone], Provider Name:Misael srinivasan, 09/08/2025 10:00:00 AM, [address] [place] [address], [address], [phone], Provider Name:Misael srinivasan, 03/06/2026 07:30:00 AM, [address] [place] [address], [address], [phone], Provider Name:Misael srinivasan, 03/13/2026 01:00:00 PM, [address] [place] [address], [address], [phone], Progress Notes * eKi SHERIDANDOB:1949 (74 yo M)Acc No.[id number]:09/02/2024 Progress Notes Patient: Kei KAYE Provider: Christopher Williamson MD :1950 A ge:74 Y S ex:Male Date:09/02/2024 Address: [address] , [id number] Subjective: * Chief Complaints: * 6 month * HPI: S ymptom(s): patient is a 74 yo male here for 6 month follow up visit. * ROS: G eneral/Constitutional: Denies Christopher hills. D enies F atigue. D enies F ever. D enies H eadache. E NT: Denies S ore throat. R espiratory: Denies C ough. D enies S hortness of breath at rest. D enies S hortness of breath with exertion. G astrointestinal: Denies D iarrhea. D enies N ausea. * Medical History: * Surgical History: * Hospitalization/Major Diagno stic Procedure: * Medications: T akingAspir-Low 81 MG Tablet Delayed Release 1 tablet Orally Once a day Metoprolol Succinate ER 50 MG Tablet Extended Release 24 Hour TAKE ONE TABLET BY MOUTH EVERY DAY Oral amLODIPine Besylate 10 MG Tablet 1 tablet Orally Once a day Taking Aspir- Low 81 MG Tablet Delayed Release 1 tablet Orally Once a day Taking Metoprolol Succinate ER 50 MG Tablet Extended Release 24 Hour TAKE ONE TABLET BY MOUTH EVERY DAY Oral Taking amLODIPine Besylate 10 MG Tablet 1 tablet Orally Once a day Not- Taking/PRNBenzonatate 200 MG Capsule 1 capsule Orally Three times a day Triamcinolone Acetonide 0.5 % Cream APPLY TOPICALLY TWO TIMES D AILY Externally Twice a day Indomethacin 50 MG Capsule TAKE ONE CAPSULE BY MOUTH THREE TIMES A DAY WITH FOOD FOR 10 DAYS Ventolin HFA * 108 (90 Base) MCG/ACT Aerosol Solution 2 puffs as needed Inhalation every 4 hrs Medication List reviewed and reconciled with the patientNot-Taking/PRN Benzonatate 200 MG Capsule 1 capsule Orally Three times a day Not-Taking/PRN Triamcinolone Acetonide 0.5 % Cream APPLY TOPICALLY TWO TIMES D AILY Externally Twice a day Not-Taking/PRN Indomethacin 50 MG Capsule TAKE ONE CAPSULE BY MOUTH THREE TIMES A DAY WITH FOOD FOR 10 DAYS Not-Taking/PRN Ventolin HFA * 108 (90 Base) MCG/ACT Aerosol Solution 2 puffs as needed Inhalation every 4 hrs Medication List reviewed and reconciled with the patient * Allergies: N .K.D.A.yes[Allergies Verified] Objective: * Vitals: H t: 69, Wt: 222, BMI:32.78, BP:118/60, Wt-k.7. * Examination: G eneral Examination: GENERAL APPEARANCE: a lert, well hydrated, in no distress.? HEAD: n ormocephalic. SKIN: g ood turgor. HEART: r egular rate and rhythm, no murmurs, rubs, gallops.? LUNGS: n o wheezes, rales, rhonchi, good air movement, clear to auscultation bilaterally. Assessment: * Assessment: 1. A bnormal stress test - R94.39 (Primary) here for follow up/ is getting cardiac ct. at [facility] Plan: * Treatment: 2. O thers Refill Triamcinolone Acetonide Cream, 0.5 %, APPLY TOPICALLY TWO TIMES D AILY, Externally, Twice a day, 15 days, 30, Refills 2. Notes: conitnues to have a rahsh that responded to steroid. will contine * Procedure Codes: * * Sign off status: Completed true * Provider: Christopher Williamson MD Date: 0 09/02/2024 Generated for Celi milton/Prem/Jaydon on: 05/20/2024 03:44 PM EST History and Physical Notes * HPI (History of Present Illness) Category Sub-Category Detail Notes Category Not es Symptom(s) patient is a 74 yo male here for 6 month follow up visit Examination Category Sub-Category Detail Notes Category Not es General Examination GENERAL APPEARANCE: alert, w ell hydrated, in no distress HEAD: normocephalic HEART: regular rate and rhy thm, no murmurs, rubs, gallops LUNGS: no wheezes, rales, r honchi, good air movement, clear to auscultation bilaterally SKIN: good turgor
--- OUTSIDE RECORDS SUMMARY | 2024-11-25 03:44 | XMS_ITS ---
Author Organization Misael Williamson MD Address [address] [place] [address] [place] [phone] Care Team Providers Care Warehouse Record Clerk Name Role Phone Misael Williamson Primary Care Provider Medications Medication SIG (Take, Route, Fr equency, Duration) Notes Start Date End Date Status Indomethacin 50 MG TAKE ONE CAPSULE BY MOUTH THREE TIMES A DAY WITH FOOD FOR 10 DAYS for 10 Active Encounters Encounter Location Date Provider Diagnosis Misael Williamson MD [address] [place] [address] [place] [phone] 11/25/2024 Misael Williamson Plan Of Treatment Medication Medication Name Sig Start Date Stop Date Notes Indomethacin 50 MG TAKE ONE CAPSULE BY MOUTH THREE TIMES A DAY WITH FOOD FOR 10 DAYS for 10 Next Appt Details Provider Name:Misael srinivasan, 05/12/2025 07:45:00 AM, [address] [place] [address], [address], [phone], Provider Name:Misael srinivasan, 09/02/2025 07:30:00 AM, [address] [place] [address], [address], [phone], Provider Name:Misael srinivasan, 09/08/2025 10:00:00 AM, [address] [place] [address], [address], [phone], Provider Name:Misael srinivasan, 03/06/2026 07:30:00 AM, [address] [place] [address], [phone], Provider Name:Misael Gibbs ier, 03/13/2026 01:00:00 PM, [address], [address], [place], [place], [phone], Progress Notes * Kei SHERIDANDOB:1949 (74 yo M)Acc No.[id number]:11/25/2024 Patient: Kei KAYE :1950 A ge:74 Y S ex:Male Address:[address], [place] [address] * Refills Refill Indomethacin Capsule, 50 MG, 30 Capsule, TAKE ONE CAPSULE BY MOUTH THREE TIMES A DAY WITH FOOD FOR 10 DAYS, 10, Refills=4 * true * Date: Generated for Celi milton/Prem/Leidaitting on: 05/20/2024 03:44 PM EST
--- OUTSIDE RECORDS SUMMARY | 2025-01-24 05:30 | XMS_ITS ---
Author Organization Misael Williamson MD Address [address] [facility] [address] [place] [phone] Care Team Providers Care Principal Research Economist Name Role Phone Misael Williamson Primary Care Provider REASON FOR VISIT HDF Immunizations Vaccine Route Administration Date Status Comme nts Influenza High Dose IM Intramuscular 01/24/2025 Administer ed Encounters Encounter Location Date Provider Diagnosis Misael Williamson MD [address] [place] [address] [place] [phone] 01/24/2025 Misael Williamson Encounter for administration of vaccine Z23 Assessments Encounter Date Diagnosis (ICD Code) Assessment Notes Treatment Notes Treatment Clinical Notes Section Notes 01/24/2025 Encounter for administration of vaccine (ICD-10 - Z23) Plan Of Treatment Next Appt Details Provider Name:Misael srinivasan, 05/12/2025 07:45:00 AM, [address] [place] [address], [address], [phone], Provider Name:Misael srinivasan, 09/02/2025 07:30:00 AM, [address] [place] [address], [address], [phone], Provider Name:Misael srinivasan, 09/08/2025 10:00:00 AM, [address] [place] [address], [address], [phone], Provider Name:Misael srinivasan, 03/06/2026 07:30:00 AM, [address] [place] [address], [phone], Provider Name:Misael Gibbs ier, 03/13/2026 01:00:00 PM, [address], [address], [place], [place], [phone], Progress Notes * Kei SHERIDANDOB:1949 (75 yo M)Acc No.[id number]:01/24/2025 Progress Note Patient: Kei KAYE Provider: Christopher Williamson MD :1950 A ge:75 Y S ex:Male Date:01/24/2025 Address:[address] [place] [address] , [facility], [id number] Subjective: * Chief Complaints: * 1 . HDF. * Medical History: Objective: * Vitals: Assessment: * Assessment: 1. E ncounter for administration of vaccine - Z23 (Primary) Plan: * Treatment: * Immunizations: Influenza High Dose : 0.5 mL (Dose No:1) (Route: Intramuscular) given by Linda Hsieh , Office Staff on Left Deltoid * Procedure Codes: 9 0662 FLU VACC PRSV FREE INC ANTIG, G0008 ADMN FLU VAC NO FEE SCHED SAME DAY * * The named appointment provid er may or may not be the originator of this progress note, and it is not deemed complete until electronically signed by the appointment provider. Sign off status: Pending * Provider: Christopher Williamson MD Date: 0 01/24/2025 Generated for Celi milton/Prem/Ummsmitting on: 1 05/20/2024 03:44 PM EST
--- OUTSIDE RECORDS SUMMARY | 2025-03-03 04:00 | XMS_ITS ---
Author Organization Misael Williamson MD Address [address] [place], [place] [phone] Care Team Providers Care Body Presser Name Role Phone Misael Williamson Primary Care Provider Results Component Value Reference Range Notes Complete Blood Count Auto Di ff Reviewed date:03/03/2025 12:40:27 PM Interpretation: Performing Lab:[facility], [address] [place] [phone] Notes/Report: White Blood Count 11.3 4.8-10.8 X10*3/uL Red Blood Count 5.36 4.60-5.80 X10*6/uL Hemoglobin 16.7 14.0-18.0 g/dl Hematocrit 50.0 42.0-52.0 % Mean Corpuscular Volume 93.3 80.0-98.0 fL Mean Corpuscular Hemoglobin 31.2 27.0-33.0 pg Mean Corpuscular HGB Conc 33.4 31.0-36.0 g/dl Red Cell Distribution Width 13.3 11.0-16.0 % Platelet Count 237 160-400 X10*3/uL Mean Platelet Volume 10.4 9.4-12.4 fL Neutrophils Percent Auto 70.5 45-73 % Imm Gran Pct Auto 0.3 0.0-0.4 % Lymphocytes Percent Auto 18.6 20-40 % Monocytes Percent Auto 7.2 2-11 % Eosinophils Percent Auto 3.0 0-4 % Basophils Percent Auto 0.4 0-2 % NRBC Pct Auto 0.0 0.0-0.2 /100WBC Neutrophils Absolute Auto 8.0 2.0-8.3 x10*3/u L Imm Gran Abs Auto 0.03 0.00-0.03 X10*3/uL Lymphocytes Absolute Auto 2.1 1.2-4.9 X10*3/u L Monocytes Absolute Auto 0.8 0.1-1.2 X10*3/uL Eosinophils Absolute Auto 0.3 0.0-0.4 X10*3/u L Basophils Absolute Auto 0.0 0.0-0.2 X10*3/uL NRBC Abs Auto 0.000 0.0-0.012 X10*3/uL Lipid Panel Reviewed date:03/03/2025 12:31:15 PM Interpretation: Performing Lab:[facility], [address] [place] [phone] Notes/Report: Triglycerides 73 <150 mg/dL Desirable Triglyceride: less than 150 mg/dL Borderline High Triglyceride 150-199 mg/dL High Triglyceride: 200-499 mg/dL Very High Triglyceride: greater than or equal to 5OO mg/dL Cholesterol 122 <200 mg/dL Desirable Cholesterol: less than 200 mg/dL Borderline High Cholesterol: 200-239 mg/dL High Cholesterol: greater than 239 mg/dL LDL Cholesterol Calculated 60 <100 mg/dL Desirable LDL: less than 100 mg/dL Near Optimal/Above Optimal LDL: 110-129 mg/dL Borderline High LDL: 130-159 mg/dL High LDL: 160-189 mg/dL Very High LDL: greater than or equal to 190 mg/dL HDL Cholesterol 48 >40 mg/dL Desirable HDL: greater than 40 mg/dL Note: This HDL assay may give artificially low results in patients with liver disease. PSA,Total (Free>4and<10) Reviewed date:03/10/2025 02:17:17 PM Interpretation:03-10-2025 Performing Lab:[facility], [address] [place] [phone] Notes/Report: PSA,Total (Free>4and<10) 3.91 0.00-4.00 ng/mL A Free PSA was not [...] (CMIA) UA ClnCatch+Micro w/rflx Cul t Reviewed date:03/05/2025 01:03:18 PM Interpretation: Performing Lab:[facility], [address] [place] [phone] Notes/Report: Urine, Clean Catch Color Urine Yellow Appearance Urine Clear PH 6.0 5.0-9.0 Glucose Urine UA Negative Negative mg/dL Urine Blood Negative Negative Specific Seibert - Urine 1.015 1.005-1.025 Urine Protein Negative Neg-Trace mg/dL Urine Ketones Negative Negative mg/dL Nitrite Urine Negative Negative Leukocyte Esterase Urine Negative Negative RBC Urine 0-2 0-2 /HPF WBC Urine 0-5 0-5 /HPF Squamous Epithelial Cell Urine 0-2 0-2 /HPF Bacteria Urine None Seen None Seen Hyaline Casts Urine 0-2 0-2 /LPF REASON FOR VISIT yearly fasting labs Encounters Encounter Location Date Provider Diagnosis Misael Williamson MD [address] [place] [phone] 03/03/2025 Misael Williamson Blood tests for rout ine general physical examination Z00.00 ; Pure hypercholesterolemia E78.00 and Essential (primary) hypertension I10 Assessments Encounter Date Diagnosis (ICD Code) Assessment Notes Treatment Notes Treatment Clinical Notes Section Notes 03/03/2025 Blood tests for rout ine general physical examination (ICD-10 - Z00.00) 03/03/2025 Pure hypercholesterolemia (ICD-10 - E78.00) 03/03/2025 Essential (primary) hypertension (ICD-10 - I10) Plan Of Treatment Pending Test Test Name Order Date Comprehensive [place]. Panel Fast Next Appt Details Provider Name:Misael srinivasan, 05/12/2025 07:45:00 AM, [address] [place] [address], [address], [phone], Provider Name:Misael srinivasan, 09/02/2025 07:30:00 AM, [address], [address], [place], [phone], Provider Name:Misael Gibbs ier, 09/08/2025 10:00:00 AM, [address], [address], [place], [phone], Provider Name:Misael Gibbs ier, 03/06/2026 07:30:00 AM, [address], [address], [place], [phone], Provider Name:Misael Gibbs ier, 03/13/2026 01:00:00 PM, [address], [address], [place], [phone], Progress Notes * Kei SHERIDANDOB:1949 (75 yo M)Acc No.[id number]:03/03/2025 Progress Note Patient: Kei KAYE Provider: Christopher Williamson MD :1950 A ge:75 Y S ex:Male Date:03/03/2025 Address:[address] [place] [address] , [facility], [id number] Subjective: * Chief Complaints: * 1 . Yearly fasting labs. * Medical History: Objective: * Vitals: Assessment: * Assessment: 1. B lood tests for routine general physical examination - Z00.00 (Primary) 2 .?Pure hypercholesterolemia - E78.00 3 . E ssential (primary) hypertension - I10 Plan: * Treatment: 2. P ure hypercholesterolemia L AB: Comprehensive [place]. Panel Fast L AB: Complete Blood Count Auto Diff (Collection Date & Time - 03/03/2025 07:15 AM) L AB: Lipid Panel (Collection Date & Time - 03/03/2025 07:15 AM) L AB: PSA,Total (Free>4and<10) (Collection Date & Time - 03/03/2025 07:15 AM) L AB: UA ClnCatch+Micro w/rflx Cult (Collection Date & Time - 03/03/2025 07:15 AM) 3. E ssential (primary) hypertension L AB: Comprehensive [place]. Panel Fast L AB: Complete Blood Count Auto Diff (Collection Date & Time - 03/03/2025 07:15 AM) L AB: Lipid Panel (Collection Date & Time - 03/03/2025 07:15 AM) L AB: PSA,Total (Free>4and<10) (Collection Date & Time - 03/03/2025 07:15 AM) L AB: UA ClnCatch+Micro w/rflx Cult (Collection Date & Time - 03/03/2025 07:15 AM) * Procedure Codes: 3 6415 VENIPUNCT, ROUTINE* * * The named appointment provid er may or may not be the originator of this progress note, and it is not deemed complete until electronically signed by the appointment provider. Sign off status: Pending * Provider: Christopher Williamson MD Date: Generated for Celi milton/Prem/Jaydon on: 05/20/2024 03:43 PM EST
--- OUTSIDE RECORDS SUMMARY | 2025-03-10 08:00 | XMS_ITS ---
Author Organization Misael Williamson MD Address [address] [place], [place] [id number] Care Team Providers Care Synchronizer Name Role Phone Misael Williamson Primary Care Provider Allergies No Known Allergies Results Component Value Reference Range Notes Occult Blood, Stool, Guaiac Reviewed date:03/10/2025 01:42:14 PM Interpretation:Negative Performing Lab: Notes/Report: Negative Occult Blood, Stool, Guaiac Neg REASON FOR VISIT annual visit/ must see PSA Medications Medication SIG (Take, Route, Frequency, Duration) [...] FOOD FOR 10 DAYS for 10 Active Benzonatate 200 MG 1 capsule Orally Thr ee times a day for 7 days 07/07/2022 Not-Maggy finn Ventolin HFA * 108 (90 Base) MCG/ACT 2 puffs as needed Inhalation every 4 hrs for 30 day(s) 06/02/2016 Not-Taking Atorvastatin Calcium 40 MG 1 tablet Oral ly Once a day Active Ezetimibe 10 MG 1 tablet Orally Once a day Active Metoprolol Succinate ER 50 MG TAKE ONE TABLET BY MOUTH EVERY DAY Oral Active amLODIPine Besylate 10 MG 1 tablet Orall y Once a day Active Social History Tobacco Use: Social History Observation [...] Problem Status W/U Status Risk Notes Problem Atherosclerotic heart disease of [place] coronary artery without angina pectoris (679614946686270) Coronary artery arteriosclerosis (I25.10) Active confirmed Vital Signs Blood pressure systolic 124 mm Hg 03/10/20 25 Blood pressure diastolic 60 mm Hg 025 Height 69 in 03/10/2025 Weight 225 lbs 03/10/2025 BMI 33.22 kg/m2 03/10/2025 weight is up 3 pounds since 09-02-24 Encounters Encounter Location Date Provider Diagnosis Misael Williamson MD [address] [place] [address] [address] [place], [place] [id number] 03/10/2025 Misael Williamson Adult general medica l examination Z00.00 ; Coronary artery arteriosclerosis I25.10 ; Elevated PSA R97.20 ; Pure hypercholesterolemia E78.00 ; Essential (primary) hypertension I10 ; Colon cancer screening Z12.11 ; Depression screening Z13.31 and Skin lesion L98.9 Assessments Encounter Date Diagnosis (ICD Code) Assessment Notes Treatment Notes Treatment Clinical Notes Section Notes 03/10/2025 Adult general medica l examination (ICD-10 - Z00.00) labs reviewed and discused with patient 03/10/2025 Coronary artery arteriosclerosis (ICD-10 - I25.10) need results of cathereization 03/10/2025 Elevated PSA (ICD-10 - R97.20) will repeat in 2 months. 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 Future Test Test Name Order Date PSA,Total (Free>4and<10) 05/10/2025 Next Appt Details Follow Up: 6 Months, Reason: Provider Name:Misael srinivasan, 05/12/2025 07:45:00 AM, [address] [place] [address], [address], [phone], Provider Name:Misael srinivasan, 09/02/2025 07:30:00 AM, [address] [place] [address], [address], [phone], Provider Name:Misael srinivasan, 09/08/2025 10:00:00 AM, [address] [place] [address], [address], [phone], Provider Name:Misael srinivasan, 03/06/2026 07:30:00 AM, [address] [place] [address], [address], [phone], Provider Name:Misael srinivasan, 03/13/2026 01:00:00 PM, [address], [address], [place], [id number], Progress Notes * Kei SHERIDANDOB:1949 (75 yo M)Acc No.[id number]:03/10/2025 Progress Notes Patient: Kei KAYE Provider: Christopher Williamson MD :1950 A ge:75 Y S ex:Male Date:03/10/2025 Address:[address] [place] [address] Dr [facility], [id number] Subjective: * Chief Complaints: * a nnual visit/ must see PSA * HPI: D epression Screening: PHQ-9 L [...] N one. S ymptom(s): patient is a 75yo male here for annual visit with review of recent labs and follow up of chronic issues. * ROS: G eneral/Constitutional: Change in appetite d enies. C hills d enies. F ever d enies. O phthalmologic: Blurred vision d enies. D ischarge d enies. P ain d enies. E NT: Decreased hearing d enies. S ore throat d enies.?Swollen glands d enies. E ndocrine: Cold intolerance [...] F requent urination d enies. M usculoskeletal: Painful joints d enies. W eakness d enies. ? S kin: Dry skin d enies. I [...] , 1-2 cups per day. Children: yes. Community involvements: no. Exercise: yes, walk, 45 minutes QD and golf. Housing: owning. Living with: spouse. Marital status: . Occupation: works part-time, and retired. Pets: none. * Medications: T akingAtorvastatin Calcium 40 MG Tablet 1 tablet Orally Once a day Ezetimibe 10 MG Tablet 1 tablet Orally Once a day Aspir-Low 81 MG Tablet Delayed Release 1 tablet Orally Once a day Metoprolol Succinate ER 50 MG Tablet Extended Release 24 Hour TAKE ONE TABLET BY MOUTH EVERY DAY Oral amLODIPine Besylate 10 MG Tablet 1 tablet Orally Once a day Triamcinolone Acetonide 0.5 % Cream APPLY TOPICALLY TWO TIMES D AILY Externally Twice a day Indomethacin 50 MG Capsule TAKE ONE CAPSULE BY MOUTH THREE TIMES A DAY WITH FOOD FOR 10 DAYS Taking Atorvastatin Calcium 40 MG Tablet 1 tablet Orally Once a day Taking Ezetimibe 10 MG Tablet 1 tablet Orally Once a day Taking Aspir-Low 81 MG Tablet Delayed Release 1 tablet Orally Once a day Taking Metoprolol Succinate ER 50 MG Tablet Extended Release 24 Hour TAKE ONE TABLET BY MOUTH EVERY DAY Oral Taking amLODIPine Besylate 10 MG Tablet 1 tablet Orally Once a day Taking Triamcinolone Acetonide 0.5 % Cream APPLY TOPICALLY TWO TIMES D AILY Externally Twice a day Taking Indomethacin 50 MG Capsule TAKE ONE CAPSULE BY MOUTH THREE TIMES A DAY WITH FOOD FOR 10 DAYS Not-Taking/PRNBenzonatate 200 MG Capsule 1 capsule Orally Three times a day Ventolin HFA * 108 (90 Base) MCG/ACT Aerosol Solution 2 puffs as needed Inhalation every 4 hrs Medication List reviewed and reconciled with the patientNot-Taking/PRN Benzonatate 200 MG Capsule 1 capsule Orally Three times a day Not-Taking/PRN Ventolin HFA * 108 (90 Base) MCG/ACT Aerosol Solution 2 puffs as needed Inhalation every 4 hrs Medication List reviewed and reconciled with the patient * Allergies: N .K.D.A.yes[Allergies Verified] Objective: * Vitals: H t: 69, Wt: 225, BMI:33.22, BP:124/60, Wt-k.06. weight is up 3 pounds since 09-02-24. * P ast Orders: L ab:Lipid Panel (Order Date - 03/03/2025) (Collection Date & Time - 03/03/2025 07:15 AM) Value Reference Range Triglycerides 73 <150 - mg/dL Cholesterol 122 <200 - mg/dL LDL Cholesterol Calculated 60 <100 - mg/dL HDL Cholesterol 48 >40 - mg/dL L ab:Comprehensive Met. Panel (Order Date - 03/03/2025) (Collection Date & Time - 03/03/2025 07:15 AM) Value Reference Range Sodium 143 135-145 - mmol/L Bilirubin Total 1.0 0.0-1.0 - mg/dL Aspartate Amino Transferase 26 5-37 - U/L Alanine Aminotransferase 33 0-40 - U/L Total Protein 6.7 6.5-8.0 - g/dL Albumin Level 4.4 3.5-5.0 - g/dL Alkaline Phosphatase 46 39-117 - U/L Potassium 4.9 3.3-5.1 - mmol/L Chloride 106 96-108 - mmol/L Carbon Dioxide 30 H 22-29 - mmol/L Anion Gap 12 12-20 - Blood Urea Nitrogen 15 9-16 - mg/dL Creatinine 0.74 0.5-1.4 - mg/dL Estimated Glomerular Filt Rate > 60 - Glucose Random 98 60-115 - mg/dL Calcium 9.2 8.4-10.2 - mg/dL L ab:Complete Blood Count Auto Diff (Order Date - 03/03/2025) (Collection Date & Time - 03/03/2025 07:15 AM) Value Reference Range White Blood Count 11.3 H 4.8-10.8 - X10*3/uL Red Blood Count 5.36 4.60-5.80 - X10*6/uL Hemoglobin 16.7 14.0-18.0 - g/dl Hematocrit 50.0 42.0-52.0 - % Mean Corpuscular Volume 93.3 80.0-98.0 - fL Mean Corpuscular Hemoglobin 31.2 27.0-33.0 - pg Mean Corpuscular HGB Conc 33.4 31.0-36.0 - g/ dl Red Cell Distribution Width 13.3 11.0-16.0 - % Platelet Count 237 160-400 - X10*3/uL Mean Platelet Volume 10.4 9.4-12.4 - fL Neutrophils Percent Auto 70.5 45-73 - % Imm Gran Pct Auto 0.3 0.0-0.4 - % Lymphocytes Percent Auto 18.6 L 20-40 - % Monocytes Percent Auto 7.2 2-11 - % Eosinophils Percent Auto 3.0 0-4 - % Basophils Percent Auto 0.4 0-2 - % NRBC Pct Auto 0.0 0.0-0.2 - /100WBC Neutrophils Absolute Auto 8.0 2.0-8.3 - x10* 3/uL Imm Gran Abs Auto 0.03 0.00-0.03 - X10*3/uL Lymphocytes Absolute Auto 2.1 1.2-4.9 - X10* 3/uL Monocytes Absolute Auto 0.8 0.1-1.2 - X10*3/ uL Eosinophils Absolute Auto 0.3 0.0-0.4 - X10* 3/uL Basophils Absolute Auto 0.0 0.0-0.2 - X10*3/ uL NRBC Abs Auto 0.000 0.0-0.012 - X10*3/uL * Examination: G eneral Examination: GENERAL APPEARANCE: w ell developed, well nourished, in no acute distress. HEAD: n ormocephalic, atraumatic. EYES: p upils equal, round, reactive to light and accommodation, sclera non-icteric. EARS: n ormal. ORAL CAVITY: m [place] moist. THROAT: c lear. NECK/THYROID: n kavon supple, full range of motion, no cervical lymphadenopathy, no bruits. SKIN: w arm and dry, no suspicious lesions, abnormal with a suspicious nodule on rt ear lobe. HEART: r egular rate and rhythm, S1, S2 normal, no murmurs.? LUNGS: c lear to auscultation bilaterally. ABDOMEN: s oft, nontender, nondistended, bowel sounds present, normal, no organomegaly , no masses palpable. RECTAL EXAM: n ormal tone, no external hemorrhoids, no masses palpable, prostate normal, stool guaiac negative. MALE GENITOURINARY: c ircumcised, no testicular mass, testes descended bilaterally. EXTREMITIES: n o clubbing, cyanosis, or edema. NEUROLOGIC: n onfocal, motor strength normal upper and lower extremities, sensory exam intact. Assessment: * Assessment: 1. A dult general medical examination - Z00.00 (Primary) 2 . C oronary artery arteriosclerosis - I25.10 3 . E levated PSA - R97.20 4 . P ure hypercholesterolemia - E78.00 5 . E ssential (primary) hypertension - I10 6. C olon cancer screening - Z12.11 7 . D epression screening - Z13.31 8 . S kin lesion - L98.9 Plan: * Treatment: 2. C oronary artery arteriosclerosis Notes: need results of cathereization 3. E levated PSA Notes: will repeat in 2 months. has gone up and down in past 4. P ure hypercholesterolemia Continue Atorvastatin Calcium Tablet, 40 MG, 1 tablet, Orally, Once a day; C ontinue Ezetimibe Tablet, 10 MG, 1 tablet, Orally, Once a day. Notes: stable, will continue current regiment 5. E ssential (primary) hypertension Continue Metoprolol Succinate ER Tablet Extended Release 24 Hour, 50 MG, TAKE ONE TABLET BY MOUTH EVERY DAY, Oral; C ontinue amLODIPine Besylate Tablet, 10 MG, 1 tablet, Orally, Once a day. ? Notes: doing well, will continue current regiment 6. C olon cancer screening L AB: Occult Blood, Stool, Guaiac (Collection Date & Time - 03/10/2025) N egative Value Reference Range O ccult Blood, Stool, Guaiac Neg Notes: guaiac negative??7.?Depression screening? Notes: negative screen??8.?Skin lesion? 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 * Procedure Codes: 8 2270 TEST FOR BLOOD, FECES * Follow Up: 6 Months * * Sign off status: Completed true * Provider: Christopher Williamson MD Date: 05/10/2024 Generated for Celi milton/Prem/Jaydon on: 05/20/2024 03:44 PM EST History and Physical Notes * HPI (History of Present Illness) Category Sub-Category Detail Notes Category Not es Symptom(s) patient is a 75 yo male here for annual visit with review of recent labs and follow up of chronic issues Depression Screening PHQ-9 Little inte rest or [...] SKIN: warm and dry, no manjit picious lesions, abnormal with a suspicious nodule on rt ear lobe EXTREMITIES: no clubbing, cyanosi s, or edema MALE GENITOURINARY: circumcised, no test icular mass, testes descended bilaterally RECTAL EXAM: normal tone, no exte rnal hemorrhoids, no masses palpable, prostate normal, stool guaiac negative ORAL CAVITY: mucosa moist
[2025-03-20 12:53] VITALS: BP 126/78; PULSE 67; BMI 31.8
--- NOTE | 2025-03-20 12:53 | MHC.OFFVIS ---
Vital Signs 03/20/25 12:53 Height 5 ft 10 in Weight 221 lb 12.56 oz BMI 31.8 BP 126/78 Blood Pressure Location Lt brachial Position Sitting Pulse 67 Pulse Source Pulse Oximeter Intake Visit Reasons: 4 mth f/up labs Staff Command And Control Officer Required: No Allergies No Known Allergies Allergy (Verified 03/20/25 12:56) Medication List - Last Reconciled 03/20/25 by Santosh Martinez NP amlodipine 10 mg PO DAILY aspirin (Adult Low Dose Aspirin) 81 mg PO DAILY atorvastatin (Lipitor) 40 mg PO DAILY ezetimibe (Zetia) 10 mg PO DAILY indomethacin 50 mg PO ONCE PRN metoprolol succinate ER 50 mg PO DAILY HPI Comments Details: This is a 75-year-old male patient coming in for a follow-up visit. Patient with a history of hypertension, cardiomyopathy, hyperlipidemia, coronary artery disease status post cardiac catheterization on 10/31/2024 showing severe RCA stenosis on medical management, and obesity. Today patient is reporting feeling well overall without any significant symptoms of exertional chest pain, shortness of breath, palpitations, dizziness, orthopnea, PND, leg edema, presyncope or syncope. Patient is reporting compliance with all his medications. Patient does note that he has quit alcohol altogether for which patient was commended. [facility] Medical History PVC (premature ventricular contraction) Hypertension Cardiomyopathy Surgical History H/O colonoscopy H/O tooth extraction Family History Father No problems noted. Mother No problems noted. Social History Alcohol intake: current Alcohol intake frequency: a few times a week Patient Tobacco Use Status: Former Tobacco user Tobacco use type: Cigarette Cigarettes Per Day: 5 Years Smoked: 10 Review of Systems Const Denies daytime sleepiness, Denies difficulty sleeping, Denies snoring, Denies stops breathing during sleep and Denies weakness Card Denies chest pain, Denies rapid heart rate, Denies irregular heart rhythm, Denies claudication, Denies leg edema, Denies lightheadedness, Denies palpitations, Denies dyspnea, Denies dyspnea on exertion, Denies orthopnea, Denies paroxysmal nocturnal dyspnea and Denies slow heart rate Resp Denies cough, Denies dyspnea, Denies dyspnea on exertion and Denies snoring GI Reports no additional complaints, Denies hematochezia, Denies change in stool character and Denies dyspepsia Musc Denies abnormal gait, Denies muscle weakness and Denies numbness Neuro Denies abnormal gait, Denies numbness and Denies weakness Endo Denies palpitations Physical Exam Vital Signs: Last Vital Signs Pulse 67 03/20/25 12:53 BP 138/64 03/20/25 12:53 BMI result Body Mass Index 31.8 Const General: cooperative, healthy appearing, comfortable and no acute distress Orientation/consciousness: patient oriented x3 HEENT Head: Yes normal to inspection Neck Neck: Yes normal visual inspection, Yes trachea midline and Yes supple Chest Chest palpation & inspection: normal inspection of the chest Resp Effort & Inspection: normal respiratory effort Auscultation: clear to auscultation bilaterally, no crackles, no rales, no rhonchi and no wheezes Cardio Jugular venous distension: no JVD Palpation: normal PMI Rate: regular rate Rhythm: regular rhythm Heart sounds: S1 normal heart sound present, S2 normal heart sound present, no click, no gallops, Murmur heart sound present systolic at the right sternal border and no rubs Peripheral pulses: Peripheral pulses 2+ throughout GI Inspection: Yes normal to inspection Palpation (GI): Soft to palpation Auscultation: normal bowel sounds Skin General skin exam: no rashes or lesions noted Neuro General: patient oriented x3 Extrem General: Yes normal to inspection, No no pedal edema and No calf tenderness Psych Appearance: grossly normal Mental Status: mental status grossly normal Speech and movement: Normal speech and movement present Assessment & Plan Assessment & Plan (1) CAD (coronary artery disease): Code(s): I25.10 - Atherosclerotic heart disease of [place] coronary artery without angina pectoris Category: Medical Plan: 09/19/2024- patient underwent coronary CTA that showed severe stenosis in the RCA, mild stenosis in the LAD, and mild stenosis in the LCX. 10/31/2024-patient underwent cardiac catheterization with Dr. Ochoa at [facility] that showed severe RCA stenosis involving PDA PLV bifurcation. It was decided to treat the patient medically. Clinically stable and without any anginal symptoms. Continue lifelong aspirin therapy. Most recent LDL at 60. Continue statin and Zetia therapy with an LDL goal less than 70. Continue amlodipine and metoprolol therapy. (2) Status post cardiac catheterization: Code(s): Z98.890 - Other specified postprocedural states Category: Surgical Plan: As above. (3) Cardiomyopathy: Comment: DUE TO ALCOHOL USE PER CARDIOLOGY H AND P Code(s): I42.9 - Cardiomyopathy, unspecified Category: Medical Plan: 09/01/20249504-ofr-psxoyl LV EF between 50-55% with grade 2 diastolic dysfunction, mildly dilated left atrium, mild aortic stenosis, aortic regurgitation, mildly elevated right ventricular systolic pressure, and mildly dilated ascending aorta 3.9 cm. Clinically stable and euvolemic. Discussed in detail signs and symptoms of heart failures to watch for. Advised low-salt diet, med compliance, and daily weight monitoring. Patient states that he has quit alcohol and only drinks 1 nonalcoholic beer a day for which patient was commended. (4) Hyperlipidemia: Code(s): E78.5 - Hyperlipidemia, unspecified Category: Medical Plan: As above. (5) Hypertension: Code(s): I10 - Essential (primary) hypertension Category: Medical Plan: Blood pressure is well-controlled. Continue amlodipine and metoprolol therapy. Advised monitoring blood pressures at home with a goal less than 130/80. Advised heart healthy diet, med compliance, and aggressive management of vascular risk factors. Follow-up in 6 months. In the interim, patient will call the office with any concerns or change in symptoms. Advised seeking ER care in case of exertional chest pain not resolved with rest. This note was generated using voice recognition software. While every effort has been made to ensure accuracy and proper stencil cutter machine, there may be occasional errors that could affect the content or meaning of the described symptoms. Coding Level of Care Code Est Pt Level 4 (39942) Complex EM visit Add On G2211 Diagnoses CAD (coronary artery disease) I25.10 Status post cardiac catheterization Z98.890 Cardiomyopathy I42.9 Hyperlipidemia E78.5 Hypertension I10 Time Spent (min) 32 Comment Time spent in reviewing the chart, test results, assessment, counseling and documentation.
--- OUTSIDE RECORDS SUMMARY | 2025-03-20 15:44 | XMS_ITS | Patient Health Record ---
Author Organization [facility] Address [address] [place] [address] Care Team Providers Care Chief Procurement Officer Name Role Phone Misael Williamson MD Primary Care Provider Fransico Alegria Jr Unavailable Allergies No Known Allergies Reason For Referral [...] Status Risk Notes Problem Colon cancer screening (485903432) Colon cancer screening (Z12.11) Active confirmed Problem History of polyp of colon (situation) (893428422) Personal history of colonic polyps (Z86.010) Active confirmed Problem Pre-procedure evaluation check (064199499) Encounter for other preprocedural examination (Z01.818) Active confirmed Problem Long-term current use of antiplatelet drug (069598754406736 ) [employer]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) Active confirmed Problem Diverticular disease of colon (676629580) Diverticulosis of large intestine without hemorrhage (K57.30) Active confirmed Problem Long-term current use of antiplatelet drug (457219867289912 ) Long-term use of aspirin therapy (Z79.82) Active confirmed Plan Of Treatment Future Test Test Name Order Date COLONOSCOPY 01/09/2013 COLONOSCOPY 08/12/2015 COLONOSCOPY 04/03/2019 COLONOSCOPY 05/25/2022 Insurance Providers Payer Name Payer Address Payer Phone Subscriber Number Group Number Insured Name Patient Relationship to Insured Coverage Start Date Coverage End Date [facility] [address] [place], [place] [id number] MILLI SILVA Self - patient is the insured Medical (General) History Medical History History ICD Code colon polyps, last colonosco py 04/24/19, 10 mm tubular adenoma, three-year followup Hypertension Elevated cholesterol Surgical History Surgery Date(Month/Year)
--- OUTSIDE RECORDS SUMMARY | 2025-03-20 15:45 | XMS_ITS | Patient Health Record ---
Author Organization Misael Williamson MD Address [address] [place], [place] [id number] Care Team Providers Care Drill Instructor Name Role Phone Misael Williamson Primary Care Provider Allergies No Known Allergies Results Component Value Reference Range Notes Complete Blood Count Auto Di ff Reviewed date:03/03/2025 12:40:27 PM Interpretation: Performing Lab:[facility], [address] [place] [phone] Notes/Report: White Blood Count 11.3 4.8-10.8 X10*3/uL [...] Panel Reviewed date:03/03/2025 12:31:15 PM Interpretation: Performing Lab:[facility], [address] [place] [phone] Notes/Report: Triglycerides 73 <150 mg/dL Desirable Triglyceride: [...] (Free>4and<10) Reviewed date:03/10/2025 02:17:17 PM Interpretation:03-10-2025 Performing Lab:[facility], [address] [place] [phone] Notes/Report: PSA,Total (Free>4and<10) 3.91 0.00-4.00 ng/mL A [...] t Reviewed date:03/05/2025 01:03:18 PM Interpretation: Performing Lab:[address] [phone] Notes/Report: Urine, Clean Catch Color Urine Yellow Appearance Urine Clear PH 6.0 5.0-9.0 Glucose Urine UA Negative Negative mg/dL Urine Blood Negative Negative Specific [place] - Urine 1.015 1.005-1.025 Urine Protein Negative Neg-Trace mg/dL Urine Ketones Negative Negative mg/dL Nitrite Urine Negative Negative Leukocyte Esterase Urine Negative Negative RBC Urine 0-2 0-2 /HPF WBC Urine 0-5 0-5 /HPF Squamous Epithelial Cell Urine 0-2 0-2 /HPF Bacteria Urine None Seen None Seen Hyaline Casts Urine 0-2 0-2 /LPF Occult Blood, Stool, Guaiac Reviewed date:03/10/2025 01:42:14 PM Interpretation:Negative Performing Lab: Notes/Report: Negative Occult Blood, Stool, Guaiac Neg Basic Metabolic Panel Reviewed date:09/10/2024 12:06:18 PM Interpretation: Performing Lab:[address] [phone] Notes/Report: Sodium 141 135-145 mmol/L Potassium 4.2 [...] Diff Reviewed date:10/16/2024 04:14:05 PM Interpretation: Performing Lab:[address] [phone] Notes/Report: White Blood Count 9.3 4.8-10.8 X10*3/uL [...] INR Reviewed date:10/16/2024 04:13:41 PM Interpretation: Performing Lab:[address] [phone] Notes/Report: Prothrombin Time 10.4 10.9-12.4 [employer] [...] Panel Reviewed date:10/16/2024 04:11:57 PM Interpretation: Performing Lab:[address] [phone] Notes/Report: Sodium 140 135-145 mmol/L Potassium 5.0 [...] Panel Reviewed date:03/03/2025 12:33:39 PM Interpretation: Performing Lab:[facility], [address] [place] [phone] Notes/Report: Sodium 143 135-145 mmol/L Potassium 4.9 [...] Twice a day for 15 days Active Atorvastatin Calcium 40 MG 1 tablet Oral ly Once a day Active Indomethacin 50 MG TAKE ONE CAPSULE BY MOUTH THREE TIMES A DAY WITH FOOD FOR 10 DAYS for 10 Active Ezetimibe 10 MG 1 tablet Orally Once a day Active Benzonatate 200 MG [address] capsule [address] ee times a day for 7 days 07/07/2022 Not-Takin g Metoprolol Succinate ER 50 MG TAKE ONE TABLET BY MOUTH EVERY DAY Oral Active Ventolin HFA * 108 (90 Base) MCG/ACT 2 puffs as needed Inhalation every 4 hrs for 30 day(s) 06/02/2016 Not-Taking amLODIPine Besylate 10 MG 1 tablet Orall y Once a day Active Immunizations Vaccine Route Administration Date Status Comme nts Fluarix Quadrivalent Unknown 02/21/2017 Administered [facility] [place] Fluarix Quadrivalent IM Intramuscular 01/22/2018 Administe red Influenza High Dose IM Intramuscular 02/14/2019 Administer ed PPSV23 (Pnemovax) IM Intramuscular 11/25/2019 Administered Influenza High Dose Unknown 01/28/2020 Administered [facility] Covid Vaccine Unknown 07/15/2020 Administered Moderna SARS-COV-2 [...] W/U Status Risk Notes Problem Essential hypertension (10918392) Essential (primary) hypertension (I10) Active confirmed Problem 822279659 Tubular adenoma of colon (D12.6) Active confirmed Problem 816551989 History of gout (Z87.39) Active confirmed Problem Atherosclerotic heart disease of [place] coronary artery without angina pectoris ([id number]) Coronary artery arteriosclerosis (I25.10) Active confirmed Problem 737734726 Pure hypercholesterolemia (E78.00) Active confirmed Problem 36539393 Aortic valve insufficiency, etiology of cardiac valve disease unspecified (I35.1) Active confirmed Problem 52998996 Asymptomatic PVC s (I49.3) Active confirmed Vital Signs Blood pressure diastolic 60 mm Hg 03/10/2025 belén ght is up 3 pounds since 09-02-24 Height 69 in 03/10/2025 weight is up 3 pounds since 09-02-24 Blood pressure systolic 124 mm Hg 03/10/2025 weig ht is up 3 pounds since 09-02-24 Weight 225 lbs 03/10/2025 weight is up 3 pounds since 09-02-24 BMI 33.22 kg/m2 03/10/2025 weight is up 3 pounds since 09-02-24 Encounters Encounter Location Date Provider Diagnosis Misael Williamson MD [address] [place] [id number] 01/24/2025 Misael Williamson Encounter for administration of vaccine Z23 Misael Williamson MD [address] [place] [id number] 03/03/2025 Misael Williamson Blood tests for rout ine general physical examination Z00.00 ; Pure hypercholesterolemia E78.00 and Essential (primary) hypertension I10 Misael Williamson MD [address] [place] [id number] 09/02/2024 Misael Williamson Abnormal stress test R94.39 Misael Williamson MD [address] [place] [id number] 03/10/2025 Misael Williamson Adult general medica l examination Z00.00 ; Coronary artery arteriosclerosis I25.10 ; Elevated PSA R97.20 ; Pure hypercholesterolemia E78.00 ; Essential (primary) hypertension I10 ; Colon cancer screening Z12.11 ; Depression screening Z13.31 and Skin lesion L98.9 Misael Williamson MD [address] [id number] 11/25/2024 Misael Williamson Assessments Encounter Date Diagnosis (ICD Code) Assessment Notes Treatment Notes Treatment Clinical Notes Section Notes 01/24/2025 Encounter for administration of vaccine (ICD-10 - Z23) 03/03/20[address] tests [address] ine general physical examination (ICD-10 - Z00.00) 09/02/2024 Abnormal stress test (ICD-10 - R94.39) not having any symptons to suggest cad but is going to have the studies here for follow up/ [facility] 03/10/2025 Adult general medica l examination (ICD-10 - Z00.00) labs reviewed and discused with patient 03/10/2025 Coronary artery arteriosclerosis (ICD-10 - I25.10) need results of cathereization 03/03/2025 Pure hypercholesterolemia (ICD-10 - E78.00) 03/10/2025 Elevated PSA (ICD-10 - R97.20) will repeat in 2 months. 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 will contine here for follow up/ is getting cardiac [facility] Plan Of Treatment Pending Test Test Name Order Date Electrocardiogram (EKG) 12/22/2015 Electrocardiogram (EKG) 12/30/2016 Electrocardiogram (EKG) 02/01/2018 ECHO 08/25/2022 Comprehensive [place]. Panel Fast Next Appt Details Provider Name:Misael srinivasan, 05/12/2025 07:45:00 AM, [address] [place] [address], [address], [place], [place], [phone], Provider Name:Misael srinivasan, 09/02/2025 07:30:00 AM, [address], [address], [place], [place], [phone], Provider Name:Misael Gibbs ier, 09/08/2025 10:00:00 AM, [address] [facility], [address], [place], [phone], Provider Name:Misael Gibbs ier, 03/06/2026 07:30:00 AM, [address], [address], [place], [phone], Provider Name:Misael Gibbs ier, 03/13/2026 01:00:00 PM, [facility], [address], [place], [phone], Insurance Providers Payer Name Payer Address Payer Phone Subscriber Number Group Number Insured Name Patient Relationship to Insured Coverage Start Date Coverage End Date [employer]AGE [address] [place], [place] [id number] Dori lamarKei Self - patient is the insured MEDICARE [address] [place] [address] [id number] StevielionKei pineda Self - patient is the insured Medical (General) History Medical History History ICD Code colonoscopy 2009. due 2012; Colonoscopy 03/27/2013 due in 3 years; colonoscopy done 10/14/15 w/Dr. Muse; Colonoscopy done 04/24/[address] Muse (biopsy done): 06/21/22 colonoscopy done, awaiting path Refuses flu shot - -7-13
== END 2025-03-20 13:13 | disposition home or self-care (01) ==
LOC: HO.HCS 12:36
PROVIDERS: PCP Internal Medicine
DX: I25.10 Atherosclerotic heart disease of native coronary artery without angina pectoris (principal); Z98.890 Other specified postprocedural states; I42.9 Cardiomyopathy, unspecified; E78.5 Hyperlipidemia, unspecified; I10 Essential (primary) hypertension
CPT/HCPCS: 99214; G2211

== ENCOUNTER → 2025-03-20 12:35 | Outpatient (BNVA) | payer MEDICARE, SELFPAY | PROVIDERS: PCP Internal Medicine | DX: I25.10 Atherosclerotic heart disease of native coronary artery without angina pectoris (principal); I10 Essential (primary) hypertension; I42.9 Cardiomyopathy, unspecified; E78.5 Hyperlipidemia, unspecified; Z98.890 Other specified postprocedural states | CPT/HCPCS: 99212 ==